=== PATIENT | female | born 1935 | race Caucasian/White ===

== ENCOUNTER 2017-06-12 11:29 | Emergency (ER) | payer MEDICARE, BC, OTHER ==
--- NOTE | 2017-06-12 12:35 | ER Document Report ---
ED Wound - General Chief Complaint: Laceration Stated Complaint: FOOT LACERATION Time Seen by Provider: 06/12/17 12:32 Information source: Patient Notes: Patient was making a salad and actually dropped a knife onto her right foot stabbing her right great toe. Tetanus is up-to-date. Patient states she does not have diabetes. - HPI Patient complains to provider of: Laceration Occurred: Just prior to arrival Onset/Duration: Sudden Quality of pain: Achy Severity: Mild Pain Level: 1 Context: Injury Skin Color: Normal Capillary refill: < 3 seconds Sensations intact: Yes Distal pulses present: Yes - Related Data Allergies/Adverse Reactions: Iodinated Contrast- Oral and IV Dye [IV Dye, Iodine Containing] Allergy (Severe , Verified 06/12/17 11:35) temporary paralysis of bilateral upper & lower extremities meloxicam [From Mobic] Allergy (Intermediate, Verified 09/12/13 15:23) uncontrollable "jerking" of corey upper & lower extremities Past Medical History - General Information source: Patient - Social History Smoking Status: Current Every Day Smoker Cigarette use (# per day): No Chew tobacco use (# tins/day): No Smoking Education Provided: No Frequency of alcohol use: None Drug Abuse: None Family History: Reviewed & Not Pertinent Patient has suicidal ideation: No Patient has homicidal ideation: No - Past Medical History Cardiac Medical History: Reports: Hx Atrial Fibrillation - post-op 06/24/11, states A fib converted without intervention, Hx Hypertension - meds x 25 years, Hx Heart Murmur - Dx'ed late s, denies MVP/SBE prophylaxis Denies: Hx Congestive Heart Failure, Hx Coronary Artery Disease, Hx Heart Attack, Hx Hypercholesterolemia, Hx Peripheral Vascular Disease, Hx Pulmonary Embolism Pulmonary Medical History: Reports: Hx Bronchitis - chronic, r/t 3 ppd cigarette smoking, Hx COPD Denies: Hx Asthma, Hx Pneumonia, Hx Respiratory Failure, Hx Sleep Apnea, Hx Tuberculosis Renal/ Medical History: Denies: Hx Ovarian Cysts, Hx Peritoneal Dialysis, Hx Pelvic Inflammatory Disease Malignancy Medical History: Denies: Hx Breast Cancer, Hx Cervical Cancer, Hx Leukemia, Hx Lung Cancer, Hx Ovarian Cancer GI Medical History: Denies: Hx Crohn's Disease, Hx Gastroesophageal Reflux Disease, Hx Hiatal Hernia, Hx Irritable Bowel, Hx Liver Failure, Hx Pancreatitis , Hx Ulcer Musculoskeltal Medical History: Reports Hx Arthritis, Denies Hx Fibromyalgia, Denies Hx Muscular Dystrophy Traumatic Medical History: Reports: Hx Fractures - RT tib/fib 1964, cast application Infectious Medical History: Denies: Hx HIV Past Surgical History: Reports: Hx Appendectomy - 1953, Hx Hysterectomy - GAIL BSO 1981, Hx Orthopedic Surgery - Bilateral total hip replacement. Denies: Hx Bowel Surgery, Hx Section, Hx Cholecystectomy, Hx Colostomy, Hx Coronary Artery Bypass Graft, Hx Gastric Bypass Surgery, Hx Herniorrhaphy, Hx Mastectomy, Hx Pacemaker, Hx Tonsillectomy, Hx Tubal Ligation - Immunizations Hx Diphtheria, Pertussis, Tetanus Vaccination: No Hx Pneumococcal Vaccination: 05/30/04 Physical Exam - Vital signs Vitals: Temp Pulse Resp BP Pulse Ox 97.4 F 128 H 20 114/86 H 92 06/12/17 11:35 06/12/17 11:35 06/12/17 11:35 06/12/17 11:35 06/12/17 11:35 Notes: Reviewed vital signs and nursing note as charted by RN. CONSTITUTIONAL: Alert and oriented and responds appropriately to questions. Well -appearing; well-nourished EXT: Patient has a puncture wound to the proximal aspect of the dorsal right great toe. Hemostatic at this time. Full range of motion of the big toe with good capillary refill with sensation intact to light touch Course - Re-evaluation Re-evalutation: 06/12/17 12:35 Given the history and physical examination we will order an x-ray to evaluate for possible open fracture. If no fracture is present we will clean and irrigate the toe appropriately and suture the wound. 06/12/17 13:28 X-ray as recorded. Suture has been placed. - Vital Signs Vital signs: Temp Pulse Resp BP Pulse Ox 97.4 F 128 H 20 114/86 H 92 06/12/17 11:35 06/12/17 11:35 06/12/17 11:35 06/12/17 11:35 06/12/17 11:35 Procedures - Laceration/Wound Repair Right Toe Wound length (cm): 1 Wound's Depth, Shape: Superficial, Linear Laceration pre-procedure: Sterile PPE donned, Shur-Clens applied Wound explored: Clean Wound Repaired With: Sutures Suture Size/Type: 4:0, Prolene Number of Sutures: 1 Layer Closure?: No Post-procedure wound care: Sterile dressing applied Post-procedure NV exam normal: Yes Complications: No Discharge - Discharge Clinical Impression: Laceration of right great toe Qualifiers: Encounter type: initial encounter Damage to nail status: without damage Foreign body presence: without foreign body Qualified Code(s): S91.111A - Laceration without foreign body of right great toe without damage to nail, initial encounter Condition: Good Disposition: HOME, SELF-CARE Additional Instructions: Come back immediately with any increased pain, redness, swelling, discharge, fever, or any other acute problems. Sutures to be removed in 7-[address] bacitracin to the wound twice daily with a clean dressing.
[2017-06-12] MEDS ORDERED: BACITRACIN ZINC OINTMENT 15 GM TP ONE (13:28)
--- NOTE | 2017-06-12 13:32 | RADIOLOGY REPORT (SQ) ---
EXAM DESCRIPTION: TOE RIGHT COMPLETED DATE/TIME: 06/12/2017 1:17 pm REASON FOR STUDY: 42, knife fell on right great toe COMPARISON: None. NUMBER OF VIEWS: Three views. TECHNIQUE: AP, lateral, and oblique images acquired of the right first toe. LIMITATIONS: None. FINDINGS: MINERALIZATION: Normal. BONES: No acute fracture or dislocation. No worrisome bone lesions. Chronic soft tissue calcificati on. JOINTS: No effusions. SOFT TISSUES: No soft tissue swelling. No foreign body. OTHER: No other significant finding. IMPRESSION: NEGATIVE STUDY OF THE RIGHT TOE. NO RADIOGRAPHIC EVIDENCE OF ACUTE INJURY. COMMENT: SITE OF TRAUMA/COMPLAINT MARKED/STAMP COMPLETED: Yes TECHNICAL DOCUMENTATION: JOB ID: [id number] [employer]- All Rights Reserved
[2017-06-12 13:55] VITALS: BP 111/61
== END 2017-06-12 13:54 | disposition home or self-care (01) ==
LOC: ER 11:29
PROC: 0HQMXZZ Repair Right Foot Skin, External Approach (ICD-10-PCS; principal; 2017-06-12)
DX: S91.111A Laceration without foreign body of right great toe without damage to nail, initial encounter (principal); W26.0XXA Contact with knife, initial encounter; Y92.009 Unspecified place in unspecified non-institutional (private) residence as the place of occurrence of the external cause; F17.200 Nicotine dependence, unspecified, uncomplicated; I48.91 Unspecified atrial fibrillation; I10 Essential (primary) hypertension; Z90.710 Acquired absence of both cervix and uterus; Z96.643 Presence of artificial hip joint, bilateral
CPT/HCPCS: 99283; 73660; 12001; J3490

== ENCOUNTER 2017-10-04 08:23 | Day surgery (SDC) | payer MEDICARE, BC, OTHER ==
[~2017-10-04 08:23] MED LIST: BUPIVACAINE HCL 0.75% INJ/PF (7.5 MG/1 ML) 10 ML SDV OD PRN; CHONDR SU A NA/HYALUR INTRAOC KIT (SURGICARE) ONE; EPINEPHRINE INJ/PF 1 MG/1 ML AMPULE ONE; KETOROLAC TROMETHAMINE 0.45% 4 DROP/0.4 ML DROPERETTE OD PRN; LIDOCAINE 1% INJ-PF (10 MG/ML) 30 ML SDV ONE; LIDOCAINE 4% INJ/PF (40 MG/ML) 5 ML AMPUL OD PRN; TETRACAINE HCL 0.5% OPH SOLN 2 ML OD PRN
[2017-10-04] MEDS: TETRACAINE HCL 0.5% OPH SOLN 0.6 ML DROPERETTE OD PRN ×2 (08:45→09:09)
[2017-10-04] MEDS: CYCLOPENTOLATE 0.2%/PHENYLEPHRINE 1% OPH SOLN 2 ML OD PRN ×3 (08:46→08:58)
[2017-10-04] MEDS: TROPICAMIDE 1% OPH SOLN 3 ML OD PRN ×3 (08:46→08:58)
[2017-10-04] MEDS: BESIFLOXACIN HCL 0.6% OPH SUSP 5 ML BOTTLE OD PRN ×4 (08:46→09:44)
[2017-10-04] MEDS ORDERED: MIDAZOLAM 2 MG/2 ML INJ ONE (08:56)
[2017-10-04] MEDS ORDERED: FENTANYL CITRATE INJ/PF 100 MCG/2 ML AMPUL ONE (08:57)
[2017-10-04] MEDS ORDERED: ALBUTEROL SULFATE 0.083% NEB 2.5 MG/3 ML AMPUL NEB ONE (09:59)
--- NOTE | 2017-10-04 09:59 | [facility] DISCHARGE SUMMARY E ---
[facility] Discharge Summary NAME: KASSIE TORO AGE: 82Y ADMITTED: 10/04/2017 DISCHARGED: 10/04/2017 FINAL DIAGNOSIS: Cataract, right eye. HOSPITAL COURSE: The patient is an 82-year-old lady who underwent uneventful cataract extraction with intraocular lens implant, right eye, on 10/04/2017. She will be discharged to home. She was instructed to resume preoperative medications; to take Tylenol as needed for discomfort; to keep her eye shielded; to use Besivance, Durezol, and Ilevro at 3 p.m. and 8 p.m.; and to follow up in my office in 1 day. DICTATING PHYSICIAN: ORLIN MAGALLANES M.D. [id number] PHY#: [id number] ID: [id number] JOB#: [id number] ACCT: [id number] cc:ORLIN MAGALLANES M.D. >
--- NOTE | 2017-10-04 09:59 | [facility] OPERATIVE REPORT E ---
[facility] Operative Report NAME: KASSIE TORO AGE: 82Y DATE OF SURGERY: 10/04/2017 ROOM: PREOPERATIVE DIAGNOSIS: Cataract, right eye. POSTOPERATIVE DIAGNOSIS: Cataract, right eye. PROCEDURE PERFORMED: Phacoemulsification with posterior chamber intraocular lens, right eye. SURGEON: ORLIN MAGALLANES M.D. ANESTHESIA: Topical with MAC. INDICATIONS FOR SURGERY: Difficulty reading words on TV and small print. Best corrected visual acuity 20/70. PROCEDURE: The patient was brought to the operating room and placed on the operative table. Following tetracaine drops, topical anesthesia was administered. This consisted of instrument wipe pledgets soaked in a solution of 4% Xylocaine mixed with 0.75% Marcaine in a 1:2 ratio. A 2 x 1 cm pledget was placed in the superior fornix. A 1 x 1 cm pledget was placed in the inferior fornix. The eye was patched shut for 5 minutes. The patch was removed. The eye was sterilely prepped and draped in the usual manner. Lid speculum was placed in the eye. The pledgets were removed and 4-0 black silk sutures were placed around the superior and the inferior rectus muscles to be used as traction. A conjunctival peritomy was made at the 10 o'clock position. Hemostasis was obtained with bipolar cautery. A posterior limbal groove was created using a crescent knife and dissected anteriorly towards the cornea. A sharp point blade was used to create a paracentesis site at the 2 o'clock position. A 2.4 mm keratome was used to enter the anterior chamber through the groove. Viscoelastic was injected into the anterior chamber. An anterior capsulotomy was performed using Utrata forceps in a capsulorrhexis fashion. Hydrodissection and hydrodelineation were performed. Phacoemulsification was performed in [id number] technique. A total of 1.6 minutes phaco time was used. Following this, the I/A unit was used to remove residual cortex. Viscoelastic was injected into the capsular bag. Intraocular lens model [id number], 24.0 diopters, serial number [id number], was placed in the capsular bag. The I/A unit was used to remove residual viscoelastic. The wound was seen to be watertight under high and low pressure, and no sutures were placed. The intraocular lens was well centered. The pressure was adjusted in the eye to normal pressure. The 4-0 black silk sutures and lid speculum were removed. The eye was shielded after Besivance drops were placed. The patient tolerated the procedure well and was sent to the recovery room in good condition. DICTATING PHYSICIAN: ORLIN MAGALLANES M.D. [id number] PHY#: [id number] ID: [id number] JOB#: [id number] ACCT: [id number] cc:ORLIN MAGALLANES M.D. >
== END 2017-10-04 10:35 | disposition home or self-care (01) ==
LOC: SC 08:23
PROVIDERS: ATTEND Ophthalmology
DX: H25.813 Combined forms of age-related cataract, bilateral (principal); H40.1231 Low-tension glaucoma, bilateral, mild stage; H34.8312 Tributary (branch) retinal vein occlusion, right eye, stable; H01.002 Unspecified blepharitis right lower eyelid; H01.005 Unspecified blepharitis left lower eyelid; I10 Essential (primary) hypertension; J44.9 Chronic obstructive pulmonary disease, unspecified; R01.1 Cardiac murmur, unspecified; M19.90 Unspecified osteoarthritis, unspecified site; F17.210 Nicotine dependence, cigarettes, uncomplicated; Z79.899 Other long term (current) drug therapy; Z86.73 Personal history of transient ischemic attack (TIA), and cerebral infarction without residual deficits; Z79.51 Long term (current) use of inhaled steroids
CPT/HCPCS: 66984; V2632; J2250; J3490; A9270 ×2; J0171; J3010; 142

== ENCOUNTER 2017-10-13 10:19 | Emergency (ER) | payer MEDICARE, BC, OTHER ==
--- NOTE | 2017-10-13 10:54 | ER Document Report ---
ED General - General Chief Complaint: Fall Stated Complaint: FALL HIP PAIN Time Seen by Provider: 10/13/17 10:35 Mode of Arrival: Medic Information source: Patient, Relative Notes: 82 yr old female presents with complaints of left hip pain. pt notes she was bending over, believes her hip dislocated and then she fell. pt denies any other injuries, states she did not strike her head. hx of hip replacements and revision TRAVEL OUTSIDE OF THE [place] IN LAST 30 DAYS: No - HPI Onset: Just prior to arrival Onset/Duration: Sudden Quality of pain: Achy Severity: Mild Pain Level: 1 Associated symptoms: Body/muscle aches Exacerbated by: Movement Relieved by: Denies Similar symptoms previously: Yes Recently seen / treated by doctor: Yes - Related Data Allergies/Adverse Reactions: Iodinated Contrast- Oral and IV Dye [IV Dye, Iodine Containing] Allergy (Severe , Verified 10/04/17 09:01) temporary paralysis of bilateral upper & lower extremities lidocaine [From Aspercreme (lidocaine)] Allergy (Intermediate, Verified 09:01) Generalized rash meloxicam [From Mobic] Allergy (Intermediate, Verified 10/04/17 09:01) uncontrollable "jerking" of corey upper & lower extremities Past Medical History - General Information source: Patient - Social History Smoking Status: Current Every Day Smoker Cigarette use (# per day): Yes Chew tobacco use (# tins/day): No Smoking Education Provided: No Frequency of alcohol use: None Drug Abuse: None Family History: Reviewed & Not Pertinent Patient has suicidal ideation: No Patient has homicidal ideation: No - Past Medical History Cardiac Medical History: Reports: Hx Atrial Fibrillation - post-op 06/24/11, states A fib converted without intervention, Hx Hypertension - MEDS, Hx Heart Murmur - Dx'ed late , denies MVP/SBE prophylaxis Denies: Hx Congestive Heart Failure, Hx Coronary Artery Disease, Hx Heart Attack, Hx Hypercholesterolemia, Hx Peripheral Vascular Disease, Hx Pulmonary Embolism Pulmonary Medical History: Reports: Hx Bronchitis - chronic, r/t 3 ppd cigarette smoking, Hx COPD Denies: Hx Asthma, Hx Pneumonia, Hx Respiratory Failure, Hx Sleep Apnea, Hx Tuberculosis Neurological Medical History: Denies: Hx Cerebrovascular Accident, Hx Seizures Renal/ Medical History: Denies: Hx Ovarian Cysts, Hx Peritoneal Dialysis, Hx Pelvic Inflammatory Disease Malignancy Medical History: Denies: Hx Breast Cancer, Hx Cervical Cancer, Hx Leukemia, Hx Lung Cancer, Hx Ovarian Cancer GI Medical History: Denies: Hx Crohn's Disease, Hx Gastroesophageal Reflux Disease, Hx Hepatitis, Hx Hiatal Hernia, Hx Irritable Bowel, Hx Liver Failure, Hx Pancreatitis, Hx Ulcer Musculoskeltal Medical History: Reports Hx Arthritis, Denies Hx Fibromyalgia, Denies Hx Muscular Dystrophy Traumatic Medical History: Reports: Hx Fractures - RT tib/fib 1964, cast application Infectious Medical History: Denies: Hx Hepatitis, Hx HIV Past Surgical History: Reports: Hx Appendectomy - 1953, Hx Hysterectomy, Hx Orthopedic Surgery - Bilateral total hip replacement. Denies: Hx Bowel Surgery , Hx Section, Hx Cholecystectomy, Hx Colostomy, Hx Coronary Artery Bypass Graft, Hx Gastric Bypass Surgery, Hx Herniorrhaphy, Hx Mastectomy, Hx Open Heart Surgery, Hx Pacemaker, Hx Tonsillectomy, Hx Tubal Ligation - Immunizations Hx Diphtheria, Pertussis, Tetanus Vaccination: No Hx Pneumococcal Vaccination: 05/30/04 Review of Systems - Review of Systems Notes: REVIEW OF SYSTEMS: CONSTITUTIONAL : Denies fever, chills, or sweats. Denies recent illness. EENT: Denies eye, ear, throat, or mouth pain or symptoms. Denies nasal or sinus congestion or discharge. Denies throat, tongue, or mouth swelling or difficulty swallowing. CARDIOVASCULAR: Denies chest pain. Denies palpitations or racing or irregular heart beat. Denies ankle edema. RESPIRATORY: Denies cough, cold, or chest congestion. Denies shortness of breath, difficulty breathing, or wheezing. GASTROINTESTINAL: Denies abdominal pain or distention. Denies nausea, vomiting , or diarrhea. Denies blood in vomitus, stools, or per rectum. Denies black, tarry stools. Denies constipation. GENITOURINARY: Denies difficulty urinating, painful urination, burning, frequency, blood in urine, or discharge. FEMALE GENITOURINARY: Denies vaginal bleeding, heavy or abnormal periods, irregular periods. Denies vaginal discharge or odor. MUSCULOSKELETAL: Admits to left hip pain SKIN: Denies rash, lesions or sores. HEMATOLOGIC : Denies easy bruising or bleeding. LYMPHATIC: Denies swollen, enlarged glands. NEUROLOGICAL: Denies confusion or altered mental status. Denies passing out or loss of consciousness. Denies dizziness or lightheadedness. Denies headache. Denies weakness or paralysis or loss of use of either side. Denies problems with gait or speech. Denies sensory loss, numbness, or tingling. Denies seizures. PSYCHIATRIC: Denies anxiety or stress. Denies depression, suicidal ideation, or homicidal ideation. ALL OTHER SYSTEMS REVIEWED AND NEGATIVE. PHYSICAL EXAMINATION: GENERAL: Well-appearing, well-nourished and in no acute distress. HEAD: Atraumatic, normocephalic. EYES: Pupils equal round and reactive to light, extraocular movements intact, conjunctiva are normal. ENT: Nares patent, oropharynx clear without exudates. Moist mucous membranes. NECK: Normal range of motion, supple without lymphadenopathy LUNGS: Breath sounds clear to auscultation bilaterally and equal. No wheezes rales or rhonchi. HEART: Regular rate and rhythm without murmurs ABDOMEN: Soft, nontender, nondistended abdomen. No guarding, no rebound. No masses appreciated. Female : deferred Musculoskeletal: Limited range of motion of the left lower extremity it is inverted and shortened NEUROLOGICAL: Cranial nerves grossly intact. Normal speech, normal gait. Normal sensory, motor exams PSYCH: Normal mood, normal affect. SKIN: Warm, Dry, normal turgor, no rashes or lesions noted. Dictation was performed using [employer] voice recognition software Physical Exam - Vital signs Vitals: Temp Pulse Resp BP Pulse Ox 97.6 F 90 16 110/69 96 10/13/17 10:23 10/13/17 10:23 10/13/17 10:23 10/13/17 10:23 10/13/17 10:23 Course - Re-evaluation Re-evalutation: 10/13/17 10:49 pt refused pain control, she is in xray at the moment 10/13/17 11:17 Dislocated hip noted, Dr Szymanski paged 10/13/17 12:43 Richy vanegas paged 10/13/17 14:21 Richy vanegas has no hip surgeon available today. 2 surgeons were called 10/13/17 14:27 [facility] paged 10/13/17 15:03 Dr Krishnan accepts patient to [facility] - Vital Signs Vital signs: Temp Pulse Resp BP Pulse Ox 97.6 F 73 17 117/75 93 10/13/17 10:23 10/13/17 12:35 10/13/17 14:40 10/13/17 14:40 10/13/17 14:40 - Laboratory Result Diagrams: 10/13/17 13:00 10/13/17 13:00 Laboratory results interpreted by me: 10/13/17 10/13/17 13:00 13:00 WBC 10.6 H RDW 15.3 H Seg Neutrophils % 86.0 H Lymphocytes % 8.2 L Absolute Neutrophils 9.1 H BUN 21 H Creatinine 0.50 L Total Protein 5.9 L - Diagnostic Test Radiology reviewed: Image reviewed - posterior left hip discloation noted on 2 view hip left, Reports reviewed - EKG Interpretation by Me EKG shows normal: Sinus rhythm, [place], Intervals, QRS Complexes Procedures - Conscious Sedation Conscious sedation Time started: 11:50 Time completed: 12:05 Consent obtained: Yes Indication: hip dislocation Prior complications: General anesthesia, Procedural sedation Normal healthy pt.: P1. - ASA Classification Airway Evaluation: Normal anatomy Mallampati Classification: Class 3 Used during procedure: Suction available, IV access obtained, Pulse ox on pt., environmental aide on pt. Medications administered: Diprivan Reversal agents: None I personally performed/intraservice time: Sedation, Procedure, 30 min or less Complications: No - Joint Reduction/Fracture Care Left Hip Time completed: 12:05 Consent obtained: Yes Conscious sedation: Yes Pre-procedure NV exam: Yes Fracture: Other Post-procedure NV exam: Yes Post-reduction x-ray: Joint not reduced Reduction attempts: 7 Complications: No Discharge - Discharge Clinical Impression: Hip dislocation, left Qualifiers: Encounter type: initial encounter Qualified Code(s): S73.005A - Unspecified dislocation of left hip, initial encounter Condition: Stable Disposition: [facility] Referrals: GEORGES HAN MD [Primary Care Provider] - Follow up as needed
--- NOTE | 2017-10-13 11:21 | RADIOLOGY REPORT (SQ) ---
EXAM DESCRIPTION: HIP LEFT AP/LATERAL COMPLETED DATE/TIME: 10/13/2017 11:10 am REASON FOR STUDY: fall COMPARISON: None. NUMBER OF VIEWS: Two views. TECHNIQUE: AP pelvis and additional frog-leg view of the left hip. LIMITATIONS: None. FINDINGS: MINERALIZATION: Normal. LEFT HIP: Left hip arthroplasty with posterior dislocation. RIGHT HIP: Right hip arthroplasty in good position. PUBIS AND ISCHIUM: No fracture. PELVIS: No fracture. SACRUM: No fracture or dislocation. No worrisome bone lesions. LOWER LUMBAR SPINE: Extensive degenerative disc disease and spondylosis. SOFT TISSUES: Left iliac artery aneurysm. OTHER: No other significant finding. IMPRESSION: 1. Dislocation of the left hip prosthesis. 2. 4 cm left common iliac aneurysm. 3. Lumbar degenerative changes. TECHNICAL DOCUMENTATION: JOB ID: [id number]- All Rights Reserved Reading location - IP/workstation name: [email or web address]
[2017-10-13] MEDS ORDERED: PROPOFOL INJ 200 MG/20 ML VIAL IV ONE (11:39)
--- NOTE | 2017-10-13 12:54 | RADIOLOGY REPORT (SQ) ---
EXAM DESCRIPTION: PELVIS AP COMPLETED DATE/TIME: 10/13/2017 12:27 pm REASON FOR STUDY: dislocation reduction attempt COMPARISON: AP pelvis films 10/13/2017, 09/24/2013 NUMBER OF VIEWS: One view TECHNIQUE: AP Pelvis LIMITATIONS: None. FINDINGS: MINERALIZATION: [place] bones are osteoporotic HIPS: Persistent left hip dislocation, the femoral head prosthesis is posterior to the acetabular cup . This is unchanged from films 10/13/2017 1109 hours Right hip replacement in good alignment. PELVIS AND SACRUM: Grossly intact PUBIS AND ISCHIUM: Grossly intact LOWER LUMBAR SPINE: Advanced lumbar spine degenerative changes. SOFT TISSUES: Peripherally calcified left proximal common iliac artery aneurysm 4 cm in diameter. Ec tatic right proximal common iliac artery 3 cm in diameter. OTHER: No other significant finding. 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 Consider follow-up abdominal aorta ultrasound. Results called to Dr Dunlap TECHNICAL DOCUMENTATION: JOB ID: [id number] [employer]- All Rights Reserved Reading location - IP/workstation name: [email or web address]
--- NOTE | 2017-10-13 13:10 | RADIOLOGY REPORT (SQ) ---
EXAM DESCRIPTION: CHEST SINGLE VIEW COMPLETED DATE/TIME: 10/13/2017 12:57 pm REASON FOR STUDY: preop COMPARISON: August 2013 EXAM PARAMETERS: NUMBER OF VIEWS: One view. TECHNIQUE: Single frontal radiographic view of the chest acquired. RADIATION DOSE: NA LIMITATIONS: Patient is rotated on the current study P FINDINGS: LUNGS AND PLEURA: No opacities, masses or pneumothorax. No pleural effusion. MEDIASTINUM AND HILAR STRUCTURES: No masses. Contour normal. HEART AND VASCULAR STRUCTURES: Allowing for the rotation the configuration of the heart and mediastin al structures is unchanged. Tortuous calcified thoracic aorta is again identified. BONES: No acute findings. HARDWARE: None in the chest. OTHER: No other significant finding. IMPRESSION: No significant interval change. No acute findings. Other findings as noted above. TECHNICAL DOCUMENTATION: JOB ID: [id number] [email or web address]- All Rights Reserved Reading location - IP/workstation name: [email or web address]
[2017-10-13 13:13] LABS: ABSOLUTE LYMPHOCYTES (AUTO) 0.9 10^3/uL (0.5-4.7); ABSOLUTE MONOCYTES (AUTO) 0.6 10^3/uL (0.1-1.4); ABSOLUTE NEUT (AUTO) 9.1 10^3/uL (1.7-8.2); BASOPHILS % (AUTO) 0.2 % (0-2); EOSINOPHILS % (AUTO) 0.1 % (0-6); HEMATOCRIT 41.5 % (36.0-47.0); HEMOGLOBIN 13.7 g/dL (12.0-15.5); LYMPHOCYTES % (AUTO) 8.2 % (13-45); MEAN CORPUSCULAR HEMOGLOBIN 29.7 pg (27.0-33.4); MEAN CORPUSCULAR HGB CONC 33.1 g/dL (32.0-36.0); MEAN CORPUSCULAR VOLUME 90 fl (80-97); MONOCYTES % (AUTO) 5.5 % (3-13); PLATELET COUNT 205 10^3/uL (150-450); RED BLOOD COUNT 4.62 10^6/uL (3.72-5.28); RED CELL DISTRIBUTION WIDTH 15.3 % (11.5-14.0); TOTAL CELLS COUNTED % (AUTO) 100 %; WHITE BLOOD COUNT 10.6 10^3/uL (4.0-10.5)
[2017-10-13 13:34] LABS: ALANINE AMINOTRANSFERASE 25 U/L (9-52); ALBUMIN 3.6 g/dL (3.5-5.0); ALKALINE PHOSPHATASE 60 U/L (38-126); ANION GAP 5 (5-19); ASPARTATE AMINO TRANSFERASE 19 U/L (14-36); BILIRUBIN,DIRECT 0.2 mg/dL (0.0-0.4); BILIRUBIN,TOTAL 0.2 mg/dL (0.2-1.3); BLOOD UREA NITROGEN 21 mg/dL (7-20); CALCIUM 9.5 mg/dL (8.4-10.2); CARBON DIOXIDE 30 mmol/L (22-30); CHLORIDE 104 mmol/L (98-107); GLUCOSE 91 mg/dL (75-110); POTASSIUM 3.9 mmol/L (3.6-5.0); TOTAL PROTEIN 5.9 g/dL (6.3-8.2)
--- NOTE | 2017-10-13 13:49 | RADIOLOGY REPORT (SQ) ---
EXAM DESCRIPTION: U/S ABD AORTIC SCREENING COMPLETED DATE/TIME: 10/13/2017 1:38 pm REASON FOR STUDY: aneurysm screening COMPARISON: AP pelvis film 10/13/2017 TECHNIQUE: Static and dynamic grayscale images acquired of the aorta and stored on PACs. Selected co merlyn Doppler and spectral images recorded. LIMITATIONS: None. FINDINGS: AORTIC CALIBER MAXIMAL PROXIMAL: 2.8 cm. MID: 2.4 cm. DISTAL: 2.9 cm. ILIAC DIAMETER RIGHT: Not visualized due to bowel gas LEFT: Not visualized due to bowel gas OTHER: No other significant finding. IMPRESSION: NO ABDOMINAL AORTIC ANEURYSM. Proximal common iliac arteries not well seen due to bowel gas. COMMENT: Aorta screening examinations categories: Negative - less than 3 cm. TECHNICAL DOCUMENTATION: JOB ID: [id number] [employer]- All Rights Reserved Reading location - IP/workstation name: [email or web address]
[2017-10-13] MEDS ORDERED: HYDROMORPHONE HCL INJ/PF 2 MG/ML AMPULE IV ONE (16:08)
[2017-10-13 18:07] VITALS: BP 122/75
== END 2017-10-13 18:00 | disposition short-term general hospital (02) ==
LOC: ER 10:19
DX: M25.552 Pain in left hip (principal); T84.021A Dislocation of internal left hip prosthesis, initial encounter; Y79.2 Prosthetic and other implants, materials and accessory orthopedic devices associated with adverse incidents; Y92.002 Bathroom of unspecified non-institutional (private) residence as the place of occurrence of the external cause; I71.4 Abdominal aortic aneurysm, without rupture; F17.210 Nicotine dependence, cigarettes, uncomplicated; I10 Essential (primary) hypertension; J44.9 Chronic obstructive pulmonary disease, unspecified; Z91.041 Radiographic dye allergy status; Z88.4 Allergy status to anesthetic agent; Z88.8 Allergy status to other drugs, medicaments and biological substances
CPT/HCPCS: 99285; 99152; 51702; 96374; 36415; 85025; 80053; 71045; 73502; 72170; 76706; 27265; J1170; J2704

== ENCOUNTER 2017-10-27 07:47 | Day surgery (SDC) | payer MEDICARE, BC, OTHER ==
[~2017-10-27 07:47] MED LIST changes: -BUPIVACAINE HCL 0.75% INJ/PF (7.5 MG/1 ML) 10 ML SDV OD PRN; -KETOROLAC TROMETHAMINE 0.45% 4 DROP/0.4 ML DROPERETTE OD PRN; +KETOROLAC TROMETHAMINE 0.45% 4 DROP/0.4 ML DROPERETTE OS PRN; -LIDOCAINE 1% INJ-PF (10 MG/ML) 30 ML SDV ONE; -LIDOCAINE 4% INJ/PF (40 MG/ML) 5 ML AMPUL OD PRN; -TETRACAINE HCL 0.5% OPH SOLN 2 ML OD PRN
[2017-10-27] MEDS: TROPICAMIDE 1% OPH SOLN 3 ML OS PRN ×3 (08:08→08:39)
[2017-10-27] MEDS: CYCLOPENTOLATE 0.2%/PHENYLEPHRINE 1% OPH SOLN 2 ML OS PRN ×3 (08:08→08:39)
[2017-10-27] MEDS: BESIFLOXACIN HCL 0.6% OPH SUSP 5 ML BOTTLE OS PRN ×2 (08:09→08:27)
[2017-10-27] MEDS: TETRACAINE HCL 0.5% OPH SOLN 0.6 ML DROPERETTE OS PRN ×2 (08:10→08:45)
[2017-10-27] MEDS ORDERED: FENTANYL CITRATE INJ/PF 100 MCG/2 ML AMPUL ONE (08:43)
[2017-10-27] MEDS ORDERED: ONDANSETRON HCL INJ/PF 4 MG/2 ML SDV ONE (08:43)
[2017-10-27] MEDS ORDERED: MIDAZOLAM 2 MG/2 ML INJ ONE (08:43)
[2017-10-27] MEDS ORDERED: TETRACAINE HCL 0.5% OPH SOLN 2 ML ONE (09:00)
--- NOTE | 2017-11-15 17:20 | [facility] OPERATIVE REPORT E ---
[facility] Operative Report NAME: KASSIE TORO AGE: 82Y DATE OF SURGERY: 10/27/2017 ROOM: PREOPERATIVE DIAGNOSIS: CATARACT, LEFT EYE. POSTOPERATIVE DIAGNOSIS: CATARACT, LEFT EYE. OPERATION: Cataract extraction with intraocular lens, right eye. SURGEON: ORLIN MAGALLANES M.D. PROCEDURE: Patient was taken to the operating room, and on placing on the stretcher, she reported chest pain. The operation was canceled. There was no incision or removal of cataract on that date. I did not perform any part of the operation, as it was canceled after she entered the operating room. She was transported to the recovery room and 911 was called, and she was transported to [facility]. Again, the case was canceled without any surgery being performed. DICTATING PHYSICIAN: ORLIN MAGALLANES M.D. [id number] PHY#: [id number] ID: [id number] JOB#: [id number] ACCT: [id number] cc:ORLIN MAGALLANES M.D. >
== END 2017-10-27 09:29 | disposition home or self-care (01) ==
LOC: SC 07:47
PROVIDERS: ATTEND Ophthalmology
DX: H25.812 Combined forms of age-related cataract, left eye (principal); Z96.1 Presence of intraocular lens; H40.1231 Low-tension glaucoma, bilateral, mild stage; J44.9 Chronic obstructive pulmonary disease, unspecified; I10 Essential (primary) hypertension; F17.210 Nicotine dependence, cigarettes, uncomplicated; Z79.51 Long term (current) use of inhaled steroids; Z79.899 Other long term (current) drug therapy; Z88.8 Allergy status to other drugs, medicaments and biological substances; Z91.040 Latex allergy status
CPT/HCPCS: 66984; J2250; J3490; A9270; J0171; J2405; 142; J3010

== ENCOUNTER 2017-10-27 09:39 | Emergency (ER) | payer MEDICARE, BC, OTHER ==
[2017-10-27] MEDS ORDERED: ASPIRIN 81 MG TABLET, CHEWABLE PO ONE (09:45)
--- NOTE | 2017-10-27 10:08 | ER Document Report ---
ED Cardiac - General Stated Complaint: CHEST PAIN Time Seen by Provider: 10/27/17 09:53 Notes: 82-year-old female sent [facility] from [facility] for evaluation. Was going to have cataract surgery today when she developed atrial fibrillation while in the preop area. Denied any symptoms at that time. Did not feel anything. Did not want to come but decided to come anyway. Patient has been n.p.o. Patient does admit to being under a little bit of stress over the last several weeks with loss of loved one. Patient followed by Dr. Lan melendez. TRAVEL OUTSIDE OF THE [place] IN LAST 30 DAYS: No - HPI Patient complains to provider of: Palpitations - Related Data Allergies/Adverse Reactions: Iodinated Contrast- Oral and IV Dye [IV Dye, Iodine Containing] Allergy (Severe , Verified 10/04/17 09:01) temporary paralysis of bilateral upper & lower extremities lidocaine [From Aspercreme (lidocaine)] Allergy (Intermediate, Verified 09:01) Generalized rash meloxicam [From Mobic] Allergy (Intermediate, Verified 10/20/17 13:37) uncontrollable "jerking" of corey upper & lower extremities Past Medical History - General Information source: Patient, [facility] Records - Social History Smoking Status: Former Smoker Frequency of alcohol use: None Drug Abuse: None Lives with: Alone Family History: Reviewed & Not Pertinent - Past Medical History Cardiac Medical History: Reports: Hx Atrial Fibrillation - post-op 06/24/11, states A fib converted without intervention, Hx Hypertension - MEDS, Hx Heart Murmur - Dx'ed late , denies MVP/SBE prophylaxis Denies: Hx Congestive Heart Failure, Hx Coronary Artery Disease, Hx Heart Attack, Hx Hypercholesterolemia, Hx Peripheral Vascular Disease, Hx Pulmonary Embolism Pulmonary Medical History: Reports: Hx Bronchitis - chronic, r/t 3 ppd cigarette smoking, Hx COPD Denies: Hx Asthma, Hx Pneumonia, Hx Respiratory Failure, Hx Sleep Apnea, Hx Tuberculosis Neurological Medical History: Denies: Hx Cerebrovascular Accident, Hx Seizures Renal/ Medical History: Denies: Hx Ovarian Cysts, Hx Peritoneal Dialysis, Hx Pelvic Inflammatory Disease Malignancy Medical History: Denies: Hx Breast Cancer, Hx Cervical Cancer, Hx Leukemia, Hx Lung Cancer, Hx Ovarian Cancer GI Medical History: Denies: Hx Crohn's Disease, Hx Gastroesophageal Reflux Disease, Hx Hepatitis, Hx Hiatal Hernia, Hx Irritable Bowel, Hx Liver Failure, Hx Pancreatitis, Hx Ulcer Musculoskeltal Medical History: Reports Hx Arthritis, Denies Hx Fibromyalgia, Denies Hx Muscular Dystrophy Traumatic Medical History: Reports: Hx Fractures - RT tib/fib 1964, cast application Infectious Medical History: Denies: Hx Hepatitis, Hx HIV Past Surgical History: Reports: Hx Appendectomy - 1953, Hx Hysterectomy, Hx Orthopedic Surgery - Bilateral total hip replacement. Denies: Hx Bowel Surgery , Hx Section, Hx Cholecystectomy, Hx Colostomy, Hx Coronary Artery Bypass Graft, Hx Gastric Bypass Surgery, Hx Herniorrhaphy, Hx Mastectomy, Hx Open Heart Surgery, Hx Pacemaker, Hx Tonsillectomy, Hx Tubal Ligation - Immunizations Hx Diphtheria, Pertussis, Tetanus Vaccination: No Hx Pneumococcal Vaccination: 05/30/04 Review of Systems - Review of Systems Constitutional: No symptoms reported EENT: No symptoms reported Cardiovascular: Palpitations, Heart racing. denies: Orthopnea, Dyspnea, Syncope Respiratory: No symptoms reported Gastrointestinal: No symptoms reported Genitourinary: No symptoms reported Female Genitourinary: No symptoms reported Musculoskeletal: No symptoms reported Skin: No symptoms reported Hematologic/Lymphatic: No symptoms reported Neurological/Psychological: No symptoms reported Physical Exam - Vital signs Vitals: Resp Pulse Ox 19 96 10/27/17 09:49 10/27/17 09:49 Interpretation: Tachycardic - General General appearance: Appears well, Alert - HEENT Head: Normocephalic, Atraumatic Eyes: Normal Pupils: PERRL - Respiratory Respiratory status: No respiratory distress Chest status: Nontender Breath sounds: Normal Chest palpation: Normal - Cardiovascular Rhythm: Irregularly irregular, Tachycardia Heart sounds: Normal auscultation Murmur: No - Abdominal Inspection: Normal Distension: No distension Bowel sounds: Normal Tenderness: Nontender Organomegaly: No organomegaly - Back Back: Normal, Nontender - Extremities General upper extremity: Normal inspection, Nontender, Normal color, Normal ROM , Normal temperature General lower extremity: Normal inspection, Nontender, Normal color, Normal ROM , Normal temperature, Normal weight bearing. No: Alexi's sign - Neurological Neuro grossly intact: Yes Cognition: Normal Orientation: AAOx4 Gordon Coma Scale Eye Opening: Spontaneous Gordon Coma Scale Verbal: Oriented Gordon Coma Scale Motor: Obeys Commands Gordon Coma Scale Total: 15 Speech: Normal Motor strength normal: LUE, RUE, LLE, RLE Sensory: Normal - Psychological Associated symptoms: Normal affect, Normal mood - Skin Skin Temperature: Warm Skin Moisture: Dry Skin Color: Normal Course - Re-evaluation Re-evalutation: 10/27/17 12:10 This is a well-appearing 82-year-old female in no acute distress with atrial fibrillation with rapid ventricular response. Diltiazem p.o. and IV given. Patient was converted to normal sinus rhythm. Denies any chest pain. Labs are normal. Patient does not want to stay. Wants to go home. I will start her on a beta-chelsea as well as aspirin. - Vital Signs Vital signs: Temp Pulse Resp BP Pulse Ox 97.8 F 18 105/65 96 10/27/17 10:46 10/27/17 12:01 10/27/17 12:00 10/27/17 12:01 - Laboratory Result Diagrams: 10/27/17 10:00 10/27/17 10:00 Laboratory results interpreted by me: 10/27/17 10/27/17 10:00 10:00 RDW 15.3 H Seg Neutrophils % 79.7 H AST 13 L Total Protein 6.0 L Discharge - Discharge Clinical Impression: Atrial fibrillation Qualifiers: Atrial fibrillation type: paroxysmal Qualified Code(s): I48.0 - Paroxysmal atrial fibrillation Condition: Good Disposition: HOME, SELF-CARE Instructions: Aspirin (Cardiac) (OM), Atrial Fibrillation (OM), Beta Blockers (OM) Prescriptions: Aspirin [Aspirin 325 mg Tablet] 325 mg PO DAILY PRN 30 Days #30 tab PRN Reason: Metoprolol Tartrate [Lopressor 25 mg Tablet] 25 mg PO DAILY 30 Days #60 tab Referrals: GALILEA JOHNSON MD [ACTIVE STAFF] - Follow up in 3-5 days GEORGES HAN MD [Primary Care Provider] - Follow up in 3-5 days
[2017-10-27] MEDS ORDERED: DILTIAZEM HCL 90 MG TABLET PO ONE (10:09)
[2017-10-27] MEDS ORDERED: DILTIAZEM HCL INJ 25 MG/5 ML VIAL IV ONE (10:09)
[2017-10-27 10:23] LABS: ABSOLUTE BASOPHILS # (AUTO) 0.1 10^3/uL (0.0-0.2); ABSOLUTE EOSINOPHILS # (AUTO) 0.1 10^3/uL (0.0-0.6); ABSOLUTE LYMPHOCYTES (AUTO) 1.2 10^3/uL (0.5-4.7); ABSOLUTE MONOCYTES (AUTO) 0.4 10^3/uL (0.1-1.4); ABSOLUTE NEUT (AUTO) 7.3 10^3/uL (1.7-8.2); BASOPHILS % (AUTO) 0.8 % (0-2); EOSINOPHILS % (AUTO) 1.4 % (0-6); HEMOGLOBIN 14.5 g/dL (12.0-15.5); LYMPHOCYTES % (AUTO) 13.2 % (13-45); MEAN CORPUSCULAR HGB CONC 33.1 g/dL (32.0-36.0); MEAN CORPUSCULAR VOLUME 91 fl (80-97); MONOCYTES % (AUTO) 4.9 % (3-13); PLATELET COUNT 248 10^3/uL (150-450); RED BLOOD COUNT 4.84 10^6/uL (3.72-5.28); RED CELL DISTRIBUTION WIDTH 15.3 % (11.5-14.0); SEGMENTED NEUTROPHILS % (AUTO) 79.7 % (42-78); TOTAL CELLS COUNTED % (AUTO) 100 %; WHITE BLOOD COUNT 9.1 10^3/uL (4.0-10.5)
--- NOTE | 2017-10-27 10:29 | RADIOLOGY REPORT (SQ) ---
EXAM DESCRIPTION: CHEST SINGLE VIEW COMPLETED DATE/TIME: 10/27/2017 10:20 am REASON FOR STUDY: cp COMPARISON: Chest films 10/13/2017, 08/31/2013 EXAM PARAMETERS: NUMBER OF VIEWS: One view. TECHNIQUE: Single frontal radiographic view of the chest acquired. RADIATION DOSE: NA LIMITATIONS: Portable film EKG leads, rotated to the FOWLER position FINDINGS: LUNGS AND PLEURA: Chronic increased interstitial markings at the bases. No fluffy alveola r infiltrates worrisome for edema or pneumonia. No pleural effusion. No pneumothorax. MEDIASTINUM AND HILAR STRUCTURES: No masses. Contour normal. HEART AND VASCULAR STRUCTURES: Mild cardiomegaly BONES: Advanced arthritis both shoulders HARDWARE: None in the chest. OTHER: No other significant finding. IMPRESSION: No acute findings TECHNICAL DOCUMENTATION: JOB ID: [id number] [employer]- All Rights Reserved Reading location - IP/workstation name: [email or web address]
[2017-10-27 10:46] LABS: ALANINE AMINOTRANSFERASE 23 U/L (9-52); ALBUMIN 3.6 g/dL (3.5-5.0); ALKALINE PHOSPHATASE 55 U/L (38-126); ANION GAP 10 (5-19); ASPARTATE AMINO TRANSFERASE 13 U/L (14-36); BILIRUBIN,DIRECT 0.3 mg/dL (0.0-0.4); BILIRUBIN,TOTAL 0.3 mg/dL (0.2-1.3); BLOOD UREA NITROGEN 16 mg/dL (7-20); CALCIUM 9.6 mg/dL (8.4-10.2); CARBON DIOXIDE 24 mmol/L (22-30); CHLORIDE 106 mmol/L (98-107); CREATINE KINASE 30 U/L (30-135); GLUCOSE 101 mg/dL (75-110); POTASSIUM 4.3 mmol/L (3.6-5.0); SODIUM 140.2 mmol/L (137-145)
[2017-10-27 11:02] LABS: TROPONIN I < 0.012 ng/mL
[2017-10-27 12:05] VITALS: BP 105/65
--- NOTE | 2017-10-27 18:04 | EKG REPORT ---
SEVERITY:- ABNORMAL ECG - ATRIAL FIBRILLATION, V-RATE 81-169 LEFT AXIS DEVIATION LEFT VENTRICULAR HYPERTROPHY : Confirmed by: Suzanna Chauhan 27-Oct-2017 18:04:10
== END 2017-10-27 12:24 | disposition home or self-care (01) ==
LOC: ER 09:39
DX: I48.0 Paroxysmal atrial fibrillation (principal); R00.0 Tachycardia, unspecified; I10 Essential (primary) hypertension; J44.9 Chronic obstructive pulmonary disease, unspecified; Z87.891 Personal history of nicotine dependence; Z91.041 Radiographic dye allergy status; Z88.4 Allergy status to anesthetic agent; Z88.8 Allergy status to other drugs, medicaments and biological substances
CPT/HCPCS: 93005; 99291; 96374; 36415; 82553; 82550; 85025; 80053; 84484; 71045; 93010; A9270 ×2; J3490

== ENCOUNTER → 2017-12-19 | Outpatient (CLI) | payer MEDICARE, BC, OTHER ==
--- NOTE | 2017-12-19 09:34 | RADIOLOGY REPORT (SQ) ---
EXAM DESCRIPTION: MRI LT UPPER JOINT WITHOUT COMPLETED DATE/TIME: 12/19/2017 8:54 am REASON FOR STUDY: LEFT SHOULDER PAIN (M25.512) M75.102 UNSP ROTATR-CUFF TEAR/RUPTR OF LEFT SHOULDER , NOT TR COMPARISON: None. TECHNIQUE: Left shoulder images acquired and stored on PACS. Multiplanar imaging to include fat sens itive sequences such as T1, water sensitive sequences such as FST2/STIR, cartilage sensitive sequence s such as FSPD/gradient-echo sequences. LIMITATIONS: Positioning. Motion. FINDINGS: BONE MARROW AND CORTEX: No worrisome bone lesions or marrow replacement. No occult fractur es. JOINT OR BURSAL EFFUSION: Small glenohumeral joint effusion. Small amount of fluid in the subacromia l and subcoracoid bursae. GLENO-HUMERAL ARTICULATION: Advanced degenerative change with multiple loose bodies and remodeling of the glenoid. ACROMION AND AC JOINT: Type 1 acromion. Marked AC joint arthropathy. Loose bodies. ROTATOR CUFF AND INTERVAL: Diffuse tendinosis. Partial thickness articular surface tears of the supr aspinatus and infraspinatus. Mild fibrosis in the rotator interval. LABRUM AND BICEPS LABRAL COMPLEX: Degenerative change. No obvious acute tear. Distal biceps intac t. REMAINDER OF LABRUM AND IGHL : Advanced degenerative change. PERIARTICULAR AND ADJACENT SOFT TISSUES: No masses or abnormal nodes. OTHER: No other significant finding. IMPRESSION: 1. Advanced glenohumeral joint arthropathy with multiple loose bodies and remodeling of the glenoid. 2. Partial-thickness articular surface tears of the supraspinatus and infraspinatus. 3. Subacromial and subcoracoid bursal fluid. 4. AC joint arthropathy. TECHNICAL DOCUMENTATION: JOB ID: [id number] [employer]- All Rights Reserved Reading location - IP/workstation name: [email or web address]
== END ==
LOC: RAD 07:59
PROVIDERS: ATTEND Physician Assistant
DX: M25.512 Pain in left shoulder (principal)

== ENCOUNTER 2018-06-09 07:31 | Inpatient (IN) | payer MEDICARE, BC, OTHER ==
--- NOTE | 2018-06-09 07:47 | ER Document Report ---
ED General - General Chief Complaint: Fall Injury Stated Complaint: FALL Time Seen by Provider: 06/09/18 07:41 Mode of Arrival: Medic Information source: Patient Notes: Patient presents to the emergency department post fall from last night. Patient reports she was brushing her teeth leaned over to throw something in the wastebasket and fell hitting her head and her hip on the floor. Patient reports her son and [id number] helped her off the floor and put her in a chair. She was able to walk last night but this morning when she attempted to get up she was very weak and her legs hurt. She denies change in LOC. Patient reports she was recently discharged from [facility] after being treated for CHF and atrial fib. She is on Eliquis. She denies chest pain feeling short of breath or dizziness. She reports she was just off balance and fell. TRAVEL OUTSIDE OF THE [place] IN LAST 30 DAYS: No - Related Data Allergies/Adverse Reactions: Iodinated Contrast- Oral and IV Dye [IV Dye, Iodine Containing] Allergy (Severe, Verified 06/09/18 07:37) temporary paralysis of bilateral upper & lower extremities lidocaine [From Aspercreme (lidocaine)] Allergy (Intermediate, Verified 06/09/18 07:37) Generalized rash meloxicam [From Mobic] Allergy (Intermediate, Verified 06/09/18 07:37) uncontrollable "jerking" of corey upper & lower extremities Past Medical History - General Information source: Patient, Emergency Med Personnel, Outside Facility Records - Social History Smoking Status: Unknown if Ever Smoked Cigarette use (# per day): No Frequency of alcohol use: None Drug Abuse: None Lives with: Family Family History: Reviewed & Not Pertinent Patient has suicidal ideation: No Patient has homicidal ideation: No - Past Medical History Cardiac Medical History: Reports: Hx Atrial Fibrillation - post-op 06/24/11, states A fib converted without intervention, Hx Hypertension - MEDS, Hx Heart Murmur - Dx'ed late , denies MVP/SBE prophylaxis Denies: Hx Congestive Heart Failure, Hx Coronary Artery Disease, Hx Heart Attack, Hx Hypercholesterolemia, Hx Peripheral Vascular Disease, Hx Pulmonary Embolism Pulmonary Medical History: Reports: Hx Bronchitis - chronic, r/t 3 ppd cigarette smoking, Hx COPD Denies: Hx Asthma, Hx Pneumonia, Hx Respiratory Failure, Hx Sleep Apnea, Hx Tuberculosis Neurological Medical History: Denies: Hx Cerebrovascular Accident, Hx Seizures Renal/ Medical History: Denies: Hx Ovarian Cysts, Hx Peritoneal Dialysis, Hx Pelvic Inflammatory Disease Malignancy Medical History: Denies: Hx Breast Cancer, Hx Cervical Cancer, Hx Leukemia, Hx Lung Cancer, Hx Ovarian Cancer GI Medical History: Denies: Hx Crohn's Disease, Hx Gastroesophageal Reflux Disease, Hx Hepatitis, Hx Hiatal Hernia, Hx Irritable Bowel, Hx Liver Failure, Hx Pancreatitis, Hx Ulcer Musculoskeletal Medical History: Reports Hx Arthritis, Denies Hx Fibromyalgia, Denies Hx Muscular Dystrophy Traumatic Medical History: Reports: Hx Fractures - RT tib/fib 1964, cast application Infectious Medical History: Denies: Hx Hepatitis, Hx HIV Past Surgical History: Reports: Hx Appendectomy - 1953, Hx Hysterectomy, Hx Orthopedic Surgery - Bilateral total hip replacement. Denies: Hx Bowel Surgery, Hx Section, Hx Cholecystectomy, Hx Colostomy, Hx Coronary Artery Bypass Graft, Hx Gastric Bypass Surgery, Hx Herniorrhaphy, Hx Mastectomy, Hx Open Heart Surgery, Hx Pacemaker, Hx Tonsillectomy, Hx Tubal Ligation - Immunizations Hx Diphtheria, Pertussis, Tetanus Vaccination: No Hx Pneumococcal Vaccination: 05/30/04 Review of Systems - Review of Systems Notes: Review HPI for review of systems., All other systems negative Physical Exam - Vital signs Vitals: Temp Pulse Resp BP Pulse Ox 98.0 F 97 20 114/65 91 L 06/09/18 07:50 06/09/18 07:50 06/09/18 07:50 06/09/18 07:50 06/09/18 07:50 - General General appearance: Alert In distress: None - HEENT Head: Other - Swelling noted to the proximal parietal area, no open wounds. No: Waite's sign, Ecchymosis, Open wounds, Racoon's eyes Eyes: No: Periorbital ecchymosis, Scleral icterus Conjunctiva: Normal. No: Injected Extraocular movements intact: Yes Pupils: PERRL. No: Dilated, Fixed Mouth/Lips: Normal Mucous membranes: Moist - Respiratory Respiratory status: No respiratory distress Chest status: Nontender Breath sounds: Normal Chest palpation: Normal - Cardiovascular Rhythm: Regular Heart sounds: Normal auscultation Murmur: Yes - Abdominal Inspection: Normal Distension: No distension Bowel sounds: Normal Tenderness: Nontender Organomegaly: No organomegaly - Back Back: Normal, Nontender - Extremities General upper extremity: Normal ROM, Normal temperature General lower extremity: Edema - bilateral, Normal ROM, Normal temperature Shoulder: Tender - pt reports same ttp as she has had for a while, no new pain Arm: Normal Elbow: Normal, Nontender Forearm: Other - Left forearm dressing in place from a prior skin tear Hand: Ecchymosis - Left hand palm Hip: Normal, Nontender Thigh: Normal, Nontender Knee: Normal Ankle: Nontender, Edema Foot: Nontender, Edema Notes: left buttocks with ecchymosis, firm - Neurological Neuro grossly intact: Yes Cognition: Normal Orientation: AAOx4 Anita Coma Scale Eye Opening: Spontaneous Anita Coma Scale Verbal: Oriented [place] Coma Scale Motor: Obeys Commands [place] Coma Scale Total: 15 Speech: Normal Cranial nerves: Normal 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 Patient rolls turns herself without any problems. 06/09/18 10:43 Labs unremarkable PT PTT elevated patient is on Eliquis. H/H decreased from last visit in September from 14.5/ to 9.6/patient reports history of transfusion for a "slow bleed" CT of the head shows hematoma as expected no bleed. Consulted with Dr. Connor. He agrees that patient can ambulate without problems may be able to be discharged. 06/09/18 12:13 Patient ambulated from the emergency department with oxygen her O2 dropped down to 84% . Discussed admission with patient and [id number]. At first they requested transfer because they did not like the doctors here. We discussed how the hospitals were full at this time but I would gladly try. Her pcp is Dr Silvano Gandhi here in [place]. The family agrees to admission to [facility] at this time - Vital Signs Vital signs: Temp Pulse Resp BP Pulse Ox 97.6 F 62 24 H 115/73 94 06/09/18 11:33 06/09/18 11:33 06/09/18 14:01 06/09/18 14:01 06/09/18 14:01 - Laboratory Result Diagrams: 06/09/18 09:16 06/09/18 09:16 Laboratory results interpreted by me: 06/09/18 06/09/18 06/09/18 09:16 09:16 09:16 WBC 11.1 H RBC 3.52 L Hgb 9.6 L Hct 31.7 L MCHC 30.3 L RDW 19.3 H Seg Neutrophils % 88.7 H Lymphocytes % 5.7 L Absolute Neutrophils 9.8 H PT 16.1 H APTT 36.0 H Sodium 136.0 L Chloride 94 L Carbon Dioxide 39 H Anion Gap 3 L Creatinine 0.42 L Total Protein 5.5 L Albumin 3.1 L Urine Urobilinogen Ur Leukocyte Esterase Urine Ascorbic Acid 06/09/18 10:01 WBC RBC Hgb Hct MCHC RDW Seg Neutrophils % Lymphocytes % Absolute Neutrophils PT APTT Sodium Chloride Carbon Dioxide Anion Gap Creatinine Total Protein Albumin Urine Urobilinogen 2.0 H Ur Leukocyte Esterase SMALL H Urine Ascorbic Acid 40 H - Diagnostic Test Radiology reviewed: Image reviewed, Reports reviewed - EXAM DESCRIPTION: HIP LEFT AP/LATERAL COMPLETED DATE/TIME: 06/09/2018 8:51 am REASON FOR STUDY: fall, hit head and hip, COMPARISON: 10/13/2017. NUMBER OF VIEWS: Two views. TECHNIQUE: AP pelvis and additional frog-leg view of the left hip. LIMITATIONS: None. FINDINGS: MINERALIZATION: Normal. LEFT HIP: Intact prosthesis. No fracture or dislocation. No worrisome bone lesions. RIGHT HIP: Intact prosthesis. No fracture or dislocation. No worrisome bone lesions. PUBIS AND ISCHIUM: No fracture. PELVIS: No fracture. SACRUM: No fracture or dislocation. No worrisome bone lesions. LOWER LUMBAR SPINE: No fracture or disl ocation. No worrisome bone lesions. Degenerative disc disease. SOFT TISSUES: No findings. OTHER: Calcified left common iliac artery aneurysm. IMPRESSION: INTACT BILATERAL HIP PROSTHESES. STABLE CHRONIC FINDINGS ABOVE. NO RADIOGRAPHIC EVIDENCE OF ACUTE INJURY. EXAM DESCRIPTION: CT HEAD WITHOUT COMPLETED DATE/TIME: 06/09/2018 8:32 am REASON FOR STUDY: fall, hit head and hip, COMPARISON: None. TECHNIQUE: Axial images acquired through the brain without intravenous contrast. Images reviewed with bone, brain and subdural windows. Additional sagittal and coronal reconstructions were generated. Images stored on PACS. All CT scanners at this facility use dose modulation, iterative reconstruction, and/or weight based dosing when appropriate to reduce radiation dose to as low as reasonably achievable (ALARA). [facility]: Dose Right [facility]: CareDose [facility]: Dose Right [facility]: Teradose 4D [facility]: Eyefreight RADIATION DOSE: CT Rad equipment meets quality standard of care and radiation dose reduction techniques were employed. CTDIvol: 53.2 mGy. DLP: 991 mGy-cm. mGy. LIMITATIONS: None. FINDINGS: VENTRICLES: Normal size and contour. CEREBRUM: No masses. No hemorrhage. No midline shift. No evidence for acute infarction. Normal ferris/white matter differentiation. No areas of low density in the white matter. CEREBELLUM: No masses. No hemorrhage. No alteration of density. No evidence for acute infarction. EXTRAAXIAL SPACES: No fluid collections. No masses. ORBITS AND GLOBE: No intra- or extraconal masses. Normal contour of globe without masses. CALVARIUM: No fracture. PARANASAL SINUSES: No fluid or mucosal thickening. SOFT TISSUES: Soft tissue hematoma of the left scalp vertex. OTHER: No other significant finding. IMPRESSION: No acute intracranial pathology. Soft tissue hematoma of the left scalp vertex. EVIDENCE OF ACUTE STROKE: NO. Discharge - Discharge Clinical Impression: Fall, Hypoxia Condition: Stable Disposition: ADMITTED INPATIENT Admitting Provider: Janice [facility] [facility] Admitted: Telemetry
--- NOTE | 2018-06-09 08:42 | RADIOLOGY REPORT (SQ) ---
EXAM DESCRIPTION: CT HEAD WITHOUT COMPLETED DATE/TIME: 06/09/2018 8:32 am REASON FOR STUDY: fall, hit head and hip, COMPARISON: None. TECHNIQUE: Axial images acquired through the brain without intravenous contrast. Images reviewed wi th bone, brain and subdural windows. Additional sagittal and coronal reconstructions were generated. Images stored on PACS. All CT scanners at this facility use dose modulation, iterative reconstruction, and/or weight based d osing when appropriate to reduce radiation dose to as low as reasonably achievable (ALARA). [facility]: Dose Right [facility]: CareDose [facility]: Dose Right [facility]: Teradose 4D [facility]: Smart Swap[employer]it RADIATION DOSE: CT Rad equipment meets quality standard of care and radiation dose reduction techniq ues were employed. CTDIvol: 53.2 mGy. DLP: 991 mGy-cm. mGy. LIMITATIONS: None. FINDINGS: VENTRICLES: Normal size and contour. CEREBRUM: No masses. No hemorrhage. No midline shift. No evidence for acute infarction. Normal gra y/white matter differentiation. No areas of low density in the white matter. CEREBELLUM: No masses. No hemorrhage. No alteration of density. No evidence for acute infarction. EXTRAAXIAL SPACES: No fluid collections. No masses. ORBITS AND GLOBE: No intra- or extraconal masses. Normal contour of globe without masses. CALVARIUM: No fracture. PARANASAL SINUSES: No fluid or mucosal thickening. SOFT TISSUES: Soft tissue hematoma of the left scalp vertex. OTHER: No other significant finding. IMPRESSION: No acute intracranial pathology. Soft tissue hematoma of the left scalp vertex. EVIDENCE OF ACUTE STROKE: NO. COMMENT: Quality ID # [id number]: Final reports with documentation of one or more dose reduction techniques (e.g., Automated exposure control, adjustment of the mA and/or kV according to patient size, use of iterative reconstruction technique) TECHNICAL DOCUMENTATION: JOB ID: [id number] [employer]- All Rights Reserved Reading location - IP/workstation name: [email or web address]
--- NOTE | 2018-06-09 09:07 | RADIOLOGY REPORT (SQ) ---
EXAM DESCRIPTION: HIP LEFT AP/LATERAL COMPLETED DATE/TIME: 06/09/2018 8:51 am REASON FOR STUDY: fall, hit head and hip, COMPARISON: 10/13/2017. NUMBER OF VIEWS: Two views. TECHNIQUE: AP pelvis and additional frog-leg view of the left hip. LIMITATIONS: None. FINDINGS: MINERALIZATION: Normal. LEFT HIP: Intact prosthesis. No fracture or dislocation. No worrisome bone lesions. RIGHT HIP: Intact prosthesis. No fracture or dislocation. No worrisome bone lesions. PUBIS AND ISCHIUM: No fracture. PELVIS: No fracture. SACRUM: No fracture or dislocation. No worrisome bone lesions. LOWER LUMBAR SPINE: No fracture or dislocation. No worrisome bone lesions. Degenerative disc disease . SOFT TISSUES: No findings. OTHER: Calcified left common iliac artery aneurysm. IMPRESSION: INTACT BILATERAL HIP PROSTHESES. STABLE CHRONIC FINDINGS ABOVE. NO RADIOGRAPHIC EVID ENCE OF ACUTE INJURY. TECHNICAL DOCUMENTATION: JOB ID: [id number] [employer]- All Rights Reserved Reading location - IP/workstation name: [facility]
[2018-06-09 09:31] LABS: ABSOLUTE BASOPHILS # (AUTO) 0.1 10^3/uL (0.0-0.2); ABSOLUTE LYMPHOCYTES (AUTO) 0.6 10^3/uL (0.5-4.7); ABSOLUTE MONOCYTES (AUTO) 0.5 10^3/uL (0.1-1.4); ABSOLUTE NEUT (AUTO) 9.8 10^3/uL (1.7-8.2); BASOPHILS % (AUTO) 0.6 % (0-2); EOSINOPHILS % (AUTO) 0.2 % (0-6); HEMATOCRIT 31.7 % (36.0-47.0); HEMOGLOBIN 9.6 g/dL (12.0-15.5); LYMPHOCYTES % (AUTO) 5.7 % (13-45); MEAN CORPUSCULAR HEMOGLOBIN 27.2 pg (27.0-33.4); MEAN CORPUSCULAR HGB CONC 30.3 g/dL (32.0-36.0); MEAN CORPUSCULAR VOLUME 90 fl (80-97); MONOCYTES % (AUTO) 4.8 % (3-13); PLATELET COUNT 276 10^3/uL (150-450); RED BLOOD COUNT 3.52 10^6/uL (3.72-5.28); RED CELL DISTRIBUTION WIDTH 19.3 % (11.5-14.0); SEGMENTED NEUTROPHILS % (AUTO) 88.7 % (42-78); TOTAL CELLS COUNTED % (AUTO) 100 %; WHITE BLOOD COUNT 11.1 10^3/uL (4.0-10.5)
[2018-06-09 09:36] LABS: INTERNATIONAL RATION (INR) 1.23; PROTHROMBIN TIME 16.1 SEC (11.4-15.4)
[2018-06-09 09:44] LABS: ALANINE AMINOTRANSFERASE 29 U/L (9-52); ALBUMIN 3.1 g/dL (3.5-5.0); ALKALINE PHOSPHATASE 77 U/L (38-126); ASPARTATE AMINO TRANSFERASE 16 U/L (14-36); BILIRUBIN,DIRECT 0.2 mg/dL (0.0-0.4); BILIRUBIN,TOTAL 0.4 mg/dL (0.2-1.3); BLOOD UREA NITROGEN 12 mg/dL (7-20); CALCIUM 9.3 mg/dL (8.4-10.2); GLUCOSE 104 mg/dL (75-110); POTASSIUM 4.3 mmol/L (3.6-5.0); TOTAL PROTEIN 5.5 g/dL (6.3-8.2)
[2018-06-09 09:50] LABS: CHLORIDE 94 mmol/L (98-107)
[2018-06-09 09:51] LABS: CARBON DIOXIDE 39 mmol/L (22-30)
[2018-06-09 09:52] LABS: ANION GAP 3 (5-19)
[2018-06-09 10:35] LABS: APPEARANCE,URINE SLIGHTLY-CLOUDY; BILIRUBIN,URINE NEGATIVE (NEGATIVE); COLOR,URINE YELLOW; GLUCOSE, URINE NEGATIVE (NEGATIVE); KETONES,URINE NEGATIVE (NEGATIVE); LEUKOCYTE ESTERASE,URINE SMALL (NEGATIVE); NITRITE,URINE NEGATIVE (NEGATIVE); PROTEIN,URINE NEGATIVE (NEGATIVE); URINE SPECIFIC GRAVITY 1.019
--- NOTE | 2018-06-09 13:21 | RADIOLOGY REPORT (SQ) ---
EXAM DESCRIPTION: CHEST SINGLE VIEW COMPLETED DATE/TIME: 06/09/2018 1:01 pm REASON FOR STUDY: low o2sat, hx copd COMPARISON: 10/13/2017. EXAM PARAMETERS: NUMBER OF VIEWS: One view. TECHNIQUE: Single frontal radiographic view of the chest acquired. RADIATION DOSE: NA LIMITATIONS: None. FINDINGS: LUNGS AND PLEURA: Diffuse interstitial prominence. No opacities, masses or pneumothorax. No pleural effusion. MEDIASTINUM AND HILAR STRUCTURES: No masses. Contour normal. HEART AND VASCULAR STRUCTURES: Cardiomegaly. BONES: No acute findings. Chronic changes in the spine and shoulders. HARDWARE: None in the chest. OTHER: No other significant finding. IMPRESSION: CARDIOMEGALY. DIFFUSE INTERSTITIAL PROMINENCE PROBABLY DUE TO CHRONIC SCARRING ALTHOUGH THERE COULD BE A COMPONENT OF INTERSTITIAL EDEMA. TECHNICAL DOCUMENTATION: JOB ID: [id number] [employer]- All Rights Reserved Reading location - IP/workstation name: [email or web address]
[2018-06-09] MEDS: HEPARIN SOD (PORCINE) 5,000 UNIT/ML 1 ML SYRINGE SUBCUT SCH ×2 (15:18→22:23)
[2018-06-09] MEDS ORDERED: FUROSEMIDE INJ/PF 40 MG/4 ML SDV IV ONE (15:30)
[2018-06-09] MEDS ORDERED: ALBUTEROL SULFATE 0.083% NEB 2.5 MG/3 ML AMPUL NEB PRN (15:31)
[2018-06-09] MEDS ORDERED: (PENDING PHARMACY ID) (Diltiazem Hcl [Cartia Xt] 240 MG) PO SCH (15:45)
[2018-06-09] MEDS ORDERED: (PENDING PHARMACY ID) (Potassium Chloride [Klor-Con] 20 MEQ) PO SCH (18:00)
[2018-06-09] MEDS: APIXABAN 5 MG TABLET PO SCH (19:01)
[2018-06-09] MEDS: POTASSIUM CHLORIDE 10 MEQ CAPSULE.ER PO SCH (19:02)
[2018-06-09] MEDS: DILTIAZEM HCL 240 MG CAPSULE.CR PO SCH (19:02)
[2018-06-09] MEDS: FLUTICASONE/SALMETEROL DISKUS 250-50 MCG/DOSE IH SCH (22:23)
--- NOTE | 2018-06-09 23:41 | XCELERA REPORT ---
[address] [address] Transthoracic Echocardiogram Report Name: KASSIE TORO Age: 83 yrs Gender: Female : 1935 Patient Status: Inpatient Patient Location: [address] [place], [place] [address] Study Date: 06/09/2018 07:23 PM Height: 69 in Weight: 185 lb BSA: 2.0 m2 Procedure: A two-dimensional transthoracic echocardiogram with color flow and Doppler was performed. The study was technically difficult with many images being suboptimal in quality. Reason For Study: Pulmonary edmea History: Pulmonary edmea. Ordering Physician: DARSHANA DINH Performed By: Starr Pérez Interpretation Summary The left ventricle is normal in size. There is normal left ventricular wall thickness. LV EF is 60% Left ventricular systolic function is normal. Probably no regional wall motion abnormlity. There is no thrombus. The right ventricle is grossly normal size. The left atrium is mildly dilated. The right atrium is mildly dilated. There is mild to moderate mitral annular calcification. There is no evidence of mitral valve prolapse. There is no vegetation seen on the mitral valve. There is no mitral valve stenosis. There is a mild amount of mitral regurgitation There is no aortic valvular vegetation. There is mild aortic stenosis There is a peak gradient of 30 mm of Hg. There is no LVOT obstruction. There is a mild amount of aortic regurgitation There is no tricuspid stenosis. There is a mild amount of tricuspid regurgitation There is mild pulmonary hypertension by echo RVSP is 35 to 40 mm of Hg , wih RA mean of 5 to 10. The inferior vena cava appeared normal and decreased > 50% with respiration (RAP 5-10 mmHg) There is no pericardial effusion. MMode/2D Measurements & Calculations RVDd: 2.4 cm LVIDd: 5.1 cm FS: 26.3 % Ao root diam: 3.0 cm IVSd: 1.1 cm LVIDs: 3.7 cm EDV(Teich): 121.5 ml Ao root area: 6.9 cm2 LVPWd: 1.0 cm ESV(Teich): 59.2 ml LA dimension: 3.9 cm EF(Teich): 51.2 % LVOT diam: 1.9 cm LVOT area: 3.0 cm2 Doppler Measurements & Calculations MV E max deandre: MV P1/2t max deandre: Ao V2 max: AI max deandre: 162.9 cm/sec 232.4 cm/sec 299.1 cm/sec 352.2 cm/sec MV P1/2t: 60.8 msec Ao max PG: AI max PG: MVA(P1/2t): 3.6 cm2 35.8 mmHg 49.9 mmHg MV dec slope: Ao V2 mean: AI dec slope: 245.1 cm/sec 259.8 cm/sec2 1119 cm/sec2 Ao mean PG: AI P1/2t: MV dec time: 26.1 mmHg 397.0 msec 0.38 sec Ao V2 VTI: 61.3 cm CONRAD(I,D): 1.4 cm2 CONRAD(V,D): 1.5 cm2 LV V1 max PG: SV(LVOT): 87.2 ml PA V2 max: PI end-d deandre: 8.5 mmHg 104.1 cm/sec 105.6 cm/sec LV V1 mean PG: PA max P.8 mmHg 4.3 mmHg LV V1 max: 145.6 cm/sec LV V1 mean: 100.1 cm/sec LV V1 VTI: 29.3 cm TR max deandre: AV P1/2t-pr_phl: MV P1/2t-pr_phl: 270.5 cm/sec 406.0 msec 60.8 msec TR max P.3 mmHg Left Ventricle The left ventricle is normal in size. There is normal left ventricular wall thickness. LV EF is 60%. Left ventricular systolic function is normal. LV diastolic function could not be adequately assessed due to atrial fibrilation. Probably no regional wall motion abnormlity. There is no thrombus. Right Ventricle The right ventricle is grossly normal size. The right ventricle is not well visualized secondary to technical limitations. Atria The right atrium is mildly dilated. The left atrium is mildly dilated. Mitral Valve There is mild to moderate mitral annular calcification. There is no evidence of mitral valve prolapse. There is no vegetation seen on the mitral valve. There is no mitral valve stenosis. There is a mild amount of mitral regurgitation. Aortic Valve There is no aortic valvular vegetation. There is mild aortic stenosis. There is a peak gradient of 30 mm of Hg. There is no LVOT obstruction. There is a mild amount of aortic regurgitation. Tricuspid Valve There is no tricuspid stenosis. There is a mild amount of tricuspid regurgitation. There is mild pulmonary hypertension by echo. RVSP is 35 to 40 mm of Hg , wih RA mean of 5 to 10. Pulmonic Valve The pulmonic valve is not well visualized. Great Vessels The aortic root is normal size. The inferior vena cava appeared normal and decreased > 50% with respiration (RAP 5-10 mmHg). Effusions There is no pericardial effusion. : DARSHANA DINH > Terese Robertson
--- NOTE | 2018-06-09 23:57 | HISTORY AND PHYSICAL E ---
History and Physical NAME: KASSIE TORO : 1935 AGE: 83Y ADMITTED: 06/09/2018 ROOM: 313 CODE STATUS: FULL CODE. PRIMARY CARE PROVIDER: Tanner Godfrey PA-C. CHIEF COMPLAINT: Fall. HISTORY OF PRESENT ILLNESS: The patient is an 83-year-old female with a past medical history of atrial fibrillation with chronic anticoagulation. The patient presented to the emergency department after sustaining a fall. According to the patient, she was brushing her teeth and she leaned over to throw something in the waste basket and lost her balance. The patient stated that she fell and struck her head, as well as her hip, on the floor. The patient reports that her son and fshaghsu-ki-vvl helped her off the floor and put her in the chair. The patient was able to walk around the house after the event; however, when she attempted to get up this morning, she was very weak and her leg hurt. The patient denies any loss of consciousness. The patient actually has just been discharged from [facility] after being treated for CHF and atrial fibrillation. The patient is on Eliquis. The patient denies any chest pain. No feeling of significant shortness of breath or dizziness. The patient stated she just lost her balance and fell. Upon presentation to the emergency department, the patient was found to be in Afib with a rate of about 130. The patient was not symptomatic to this. The patient was normotensive; however, she was tachypneic, with a rate of 24. The patient was attempted ambulation and her oxygen saturations fell to 84% on room air. Given these findings, the patient has been referred to the hospital for admission and management. PAST MEDICAL HISTORY: Remarkable for: 1. Chronic atrial fibrillation. 2. Hypertension. 3. Chronic bronchitis. 4. Chronic obstructive pulmonary disease. 5. Osteoarthritis. PAST SURGICAL HISTORY: Includes: 1. An ablation back in 2011 for her Afib. 2. Appendectomy in 4. 3. Hysterectomy. 4. Orthopedic surgery, which included a bilateral total hip replacement. 5. Several left hip revisions after her replacement. 6. Two different spinal surgeries. ALLERGIES: Include: 1. IV CONTRAST. 2. LIDOCAINE. 3. MELOXICAM. HOME MEDICATIONS: Include: 1. Albuterol nebulizers, 1 neb q.12 hours p.r.n. 2. Eliquis 5 mg p.o. b.i.d. 3. Diltiazem XT 240 mg p.o. q.12 hours. 4. Benadryl 25 mg p.o. q.12 hours. 5. Vitamin D 50,000 units p.o. weekly on Tuesday. 6. Advair 250/50 one puff inhalation q.12 hours. 7. Lasix 40 mg p.o. q. a.m. 8. Potassium chloride 20 mEq p.o. t.i.d. SOCIAL HISTORY: The patient currently resides at home with her son, unfortunately who has an LVAD in place. [id number] is having to take care of both her and her son. The patient is a retired [employer]. 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 The patient does have a long history of tobacco use. The patient reports a 65-year pack history. She stopped smoking in February. Denies any alcohol use or illicit drug use. FAMILY MEDICAL HISTORY: The patient's father is of complications of diabetes. The patient's mother of old age at the age of 99. The patient has had a brother that has from cancer and a sister as well that is alive with diabetes. The patient has older siblings that have from what the patient describes as old age. REVIEW OF SYSTEMS: CONSTITUTIONAL: Patient denies any fever or chills. No change in appetite. Does admit to some intermittent dizziness as well as weakness. INTEGUMENTARY: The patient denies any diaphoresis, rash, bruising or itching. ENT: Denies any vision changes, hearing loss, nasal drainage or sore throat. No headache or dizziness. CARDIAC: The patient denies any heart palpitations or chest pain. She does admit to peripheral edema. Today is worse than normal. RESPIRATORY: Denies any cough, sputum production or hemoptysis. GI: Denies any nausea, vomiting, diarrhea. No abdominal pain, bloody hematemesis or constipation. No melena or hematochezia. : No nausea, hematuria or dysuria. MUSCULOSKELETAL: Denies any significant change in her pain. The patient does have chronic right shoulder pain and does have some acute pain associated with her fall. NEUROLOGICAL: No seizures, tremors or loss of consciousness. DERMATOLOGICAL: Denies any easy bruising. ENDOCRINE: Denies any recent weight changes. PSYCHIATRIC: Denies any suicidal or homicidal ideation. The rest of the review of systems is otherwise negative. PHYSICAL EXAMINATION: GENERAL: On examination, the patient is a well-developed, well-nourished 83-year-old female who is awake, alert. She is oriented to person, place, time and situation. She is verbal and conversational. Does not appear to be in acute distress. VITAL SIGNS: Temperature is 97.6, pulse 125, respirations 22, blood pressure is 111/57, oxygen saturation 94% on 3 liters nasal cannula. SKIN: Warm and dry. No rash. She is not diaphoretic. HEENT: Pupils equal, round and reactive to light and accommodation. Conjunctivae are pink. Sclerae with no icterus. There are no mouth lesions. Tongue is midline. NECK: Supple. The patient does have JVP at the right clavicle. No lymphadenopathy or thyromegaly. CVS: Heart is irregularly irregular. No rub. CHEST: Diminished, symmetrical, with bilateral basal crackles. ABDOMEN: Soft, nontender, nondistended. Bowel sounds are present. No palpable organomegaly. BACK: No CVA tenderness or sacral edema. EXTREMITIES: No clubbing, cyanosis. The patient does have +1 bilateral lower extremity pitting edema with no peripheral signs of embolization. Trace pedal pulses noted bilaterally. Appropriate capillary refill. PSYCHIATRIC: Appropriate affect, pleasant mood. DIAGNOSTICS: Lab values are as follows: Hematology obtained on 06/09/2018: WBC is 11.1, hemoglobin is 9.6, hematocrit is 31.7, platelet count is 276,000. Coagulation obtained on 06/09/2018: PT is , INR is 1.23. Chemistry obtained on : Sodium is 136, potassium is 4.3, chloride is 94, carbon dioxide is 34, BUN 12, creatinine is 0.42. Glucose 104, calcium is 9.3. Bilirubin is 0.4. AST 16, ALT is 20, alk phos 77, total protein is 5.5, albumin is 3.1. Urinalysis obtained on 06/09/2018: Color: Yellow. Appearance: Slightly cloudy. The pH is 5.0, specific gravity is 1.019. Protein negative, glucose negative, ketones negative, nitrite negative, bili negative, urobilinogens 2.05. WBCs 41, RBCs 1, bacteria trace. Head CT obtained on 06/09/2018 revealed no acute intracranial pathology. Hip x-ray obtained on 06/09/2018 revealed intact bilateral hip prostheses. Chest x-ray obtained on 06/09/2018 revealed cardiomegaly with diffuse interstitial prominence, probably due to chronic scarring, although could be a component of interstitial edema. ASSESSMENT AND PLAN: 1. Acute on chronic most likely diastolic congestive heart failure. Will diurese the patient with 40 of Lasix. Additionally, will obtain an echo as there has not been one obtained here for further evaluation. The patient was recently admitted for the same process. 2. Atrial fibrillation. The patient has poor rate control at this time. She balances between 110 and 125. Have resumed the patient's home medications, as well as her chronic anticoagulation, and follow. 3. Chronic anticoagulation. The patient is chronically anticoagulated with Eliquis. 4. Acute on chronic hypoxemic respiratory failure. Patient is currently requiring O2 at 2 liters. Will follow. 5. Recent fall. Will consult Physical Therapy. DISPOSITION: The patient is a FULL CODE. Pending patient's symptomatology and diagnostic findings, will reevaluate in the a.m. We will admit the patient to inpatient IMCU, as the patient's expected length of stay should surpass 2 midnights. Time spent on this admission, including assessment, plan, physical examination, patient education, review of records and family meeting, is 70 minutes. DICTATING PHYSICIAN: DARSHANA DINH NP [id number] PHY#: [id number] ID: [id number] JOB#: [id number] ACCT: [id number] cc:MD DARSHANA Gonzalez NP > MTDD
[2018-06-10 05:57] LABS: HEMOGLOBIN 8.8 g/dL (12.0-15.5); MEAN CORPUSCULAR HEMOGLOBIN 27.9 pg (27.0-33.4); MEAN CORPUSCULAR HGB CONC 31.3 g/dL (32.0-36.0); MEAN CORPUSCULAR VOLUME 89 fl (80-97); PLATELET COUNT 233 10^3/uL (150-450); RED BLOOD COUNT 3.14 10^6/uL (3.72-5.28); RED CELL DISTRIBUTION WIDTH 19.5 % (11.5-14.0); WHITE BLOOD COUNT 12.5 10^3/uL (4.0-10.5)
[2018-06-10 06:19] LABS: BLOOD UREA NITROGEN 15 mg/dL (7-20); CALCIUM 9.1 mg/dL (8.4-10.2); GLUCOSE 106 mg/dL (75-110); POTASSIUM 3.8 mmol/L (3.6-5.0)
[2018-06-10] MEDS: DILTIAZEM HCL 240 MG CAPSULE.CR PO SCH ×2 (06:22→17:34)
[2018-06-10] MEDS: HEPARIN SOD (PORCINE) 5,000 UNIT/ML 1 ML SYRINGE SUBCUT SCH ×3 (06:23→21:17)
[2018-06-10 06:39] LABS: CHLORIDE 92 mmol/L (98-107); SODIUM 136.9 mmol/L (137-145)
[2018-06-10 06:54] LABS: ANION GAP 4 (5-19)
[2018-06-10 06:57] LABS: CARBON DIOXIDE 41 mmol/L (22-30)
[2018-06-10] MEDS: FUROSEMIDE 40 MG TABLET PO SCH (08:50)
[2018-06-10] MEDS: POTASSIUM CHLORIDE 10 MEQ CAPSULE.ER PO SCH ×2 (09:08→17:39)
[2018-06-10] MEDS: FLUTICASONE/SALMETEROL DISKUS 250-50 MCG/DOSE IH SCH ×2 (09:08→21:17)
[2018-06-10] MEDS: APIXABAN 5 MG TABLET PO SCH ×2 (09:08→17:39)
[2018-06-10] MEDS: ACETAMINOPHEN 325 MG TABLET PO PRN (09:14)
[2018-06-10 11:43] LABS: VENOUS BLOOD BASE EXCESS 14.8 mmol/L; VENOUS BLOOD HCO3 43.1 mmol/L (20-32); VENOUS BLOOD PH 7.36 (7.30-7.42)
[2018-06-10 11:49] LABS: VENOUS BLOOD PCO2 78.1 mmHg (35-63)
[2018-06-10] MEDS ORDERED: FUROSEMIDE INJ/PF 40 MG/4 ML SDV IV ONE (12:27)
[2018-06-10] MEDS ORDERED: FUROSEMIDE INJ/PF 40 MG/4 ML SDV ONE (13:07)
[2018-06-10 15:15] LABS: VENOUS BLOOD BASE EXCESS 15.3 mmol/L; VENOUS BLOOD HCO3 42.8 mmol/L (20-32); VENOUS BLOOD PH 7.39 (7.30-7.42)
[2018-06-10 15:19] LABS: VENOUS BLOOD PCO2 71.8 mmHg (35-63)
--- NOTE | 2018-06-10 23:37 | PROGRESS NOTE E ---
Progress Note NAME: KASSIE TORO : 1935 AGE: 83Y DATE: 06/10/2018 ROOM: 313 SUBJECTIVE: The patient is currently lying in bed. She states that she feels about the same today. She is complaining of ongoing left hip pain. The patient denies any nausea, vomiting. No diarrhea. No shortness of breath, dizziness, chest pain. No fevers, chills. The patient has been afebrile. Her blood pressure has been in a good range and the patient does not voice any other concerns at this time. REVIEW OF SYSTEMS: The rest of review of systems is negative. MEDICATIONS: Have been reviewed. OBJECTIVE: GENERAL: The patient is an 83-year-old female who is awake, alert, and oriented to person, time, place, situation. She is verbal, conversational. Does not appear to be in any acute distress. VITAL SIGNS: Temperature is 97.8, pulse 85, respirations 14, blood pressure is 111/53, oxygen saturation is 91% on room air. SKIN: Warm and dry. No rash. She is not diaphoretic. HEENT: Pupils equal, round and reactive to light and accommodation. Conjunctivae are pink. The patient does have JVP at the right clavicle. CARDIOVASCULAR: Heart is regular. There is no murmur or rub. CHEST: Clear, symmetrical, unlabored. ABDOMEN: Soft, nontender. EXTREMITIES: No clubbing, cyanosis, edema. PSYCHIATRIC: Appropriate affect, pleasant mood. DIAGNOSTICS: Lab values are as follows - Hematology obtained on 06/10/2018; WBC is 10.5, hemoglobin is 9.8, hematocrit is 28.0, platelet count is 233,000. Chemistry obtained on 06/10/2018; sodium is 136, potassium 3.8, chloride is 92, carbon dioxide 41, BUN 15, creatinine is 0.53, glucose 106, calcium is 9.1, magnesium is 2.0. IMPRESSION AND PLAN: 1. ACUTE ON CHRONIC DIASTOLIC CONGESTIVE HEART FAILURE. The patient has been diuresed, we will give another dose again today. The patient overall appears to be breathing more comfortably. Will follow. 2. HYPERCAPNIA. The patient's CO2 is high on her chemistry. I looked back in September and it was normal. I do have a suspicion the patient is having hypercapnia, therefore, we will obtain a venous blood gas, if so we will apply BiPAP and follow. 3. CHRONIC ATRIAL FIBRILLATION. The patient is much better rate controlled at this time. Have continued the patient's home medications and follow. 4. CHRONIC ANTICOAGULATION. The patient has been chronically anticoagulated with Eliquis. 5. ACUTE ON CHRONIC HYPOXEMIC RESPIRATORY FAILURE. The patient has actually been on room air. She may have a hypercapnic component to this as well. Will follow. 6. RECENT FALL. Will re-image the patient's left hip since this is ongoing pain and consult physical therapy. CODE STATUS: The patient is a full code. DISPOSITION: Depending on the patient's symptomatology and diagnostic findings will reevaluate in the a.m. The patient is on the list for transfer at [facility] at the family's request. TIME SPENT: On this follow up, including assessment and plan, physical examination, patient education, review of records is 35 minutes. DICTATING PHYSICIAN: DARSHANA DINH NP [id number] PHY#: [id number] ID: [id number] JOB#: [id number] ACCT: [id number] cc: >
[2018-06-11] MEDS: HEPARIN SOD (PORCINE) 5,000 UNIT/ML 1 ML SYRINGE SUBCUT SCH ×3 (05:24→21:18)
[2018-06-11] MEDS: DILTIAZEM HCL 240 MG CAPSULE.CR PO SCH ×2 (05:24→17:36)
[2018-06-11 06:23] LABS: HEMATOCRIT 27.6 % (36.0-47.0); HEMOGLOBIN 8.6 g/dL (12.0-15.5); MEAN CORPUSCULAR HEMOGLOBIN 27.7 pg (27.0-33.4); MEAN CORPUSCULAR HGB CONC 31.3 g/dL (32.0-36.0); MEAN CORPUSCULAR VOLUME 88 fl (80-97); PLATELET COUNT 250 10^3/uL (150-450); RED BLOOD COUNT 3.12 10^6/uL (3.72-5.28); RED CELL DISTRIBUTION WIDTH 19.2 % (11.5-14.0); WHITE BLOOD COUNT 12.4 10^3/uL (4.0-10.5)
[2018-06-11 06:26] LABS: VENOUS BLOOD BASE EXCESS 14.7 mmol/L; VENOUS BLOOD HCO3 42.5 mmol/L (20-32); VENOUS BLOOD PH 7.37 (7.30-7.42)
[2018-06-11 06:33] LABS: VENOUS BLOOD PCO2 74.5 mmHg (35-63)
[2018-06-11 06:59] LABS: BLOOD UREA NITROGEN 18 mg/dL (7-20); CALCIUM 9.1 mg/dL (8.4-10.2); CHLORIDE 94 mmol/L (98-107); GLUCOSE 105 mg/dL (75-110); POTASSIUM 4.1 mmol/L (3.6-5.0); SODIUM 137.3 mmol/L (137-145)
[2018-06-11 07:25] LABS: ANION GAP 1 (5-19)
[2018-06-11] MEDS: APIXABAN 5 MG TABLET PO SCH ×2 (10:02→17:36)
[2018-06-11] MEDS: POTASSIUM CHLORIDE 10 MEQ CAPSULE.ER PO SCH (10:02)
[2018-06-11] MEDS: FLUTICASONE/SALMETEROL DISKUS 250-50 MCG/DOSE IH SCH ×2 (10:03→21:18)
[2018-06-11] MEDS: FUROSEMIDE 40 MG TABLET PO SCH (10:03)
[2018-06-11] MEDS: ERGOCALCIFEROL (VITAMIN D2) 50000 UNIT (1.25 MG) CAPSULE PO SCH (10:03)
[2018-06-11] MEDS: ACETAMINOPHEN 325 MG TABLET PO PRN (10:06)
--- NOTE | 2018-06-11 14:39 | RADIOLOGY REPORT (SQ) ---
EXAM DESCRIPTION: CHEST 2 VIEWS COMPLETED DATE/TIME: 06/11/2018 2:28 pm REASON FOR STUDY: FU CHF COMPARISON: 06/09/2018, 08/31/2013 EXAM PARAMETERS: NUMBER OF VIEWS: two views TECHNIQUE: Digital Frontal and Lateral radiographic views of the chest acquired. RADIATION DOSE: NA LIMITATIONS: none FINDINGS: LUNGS AND PLEURA: Bilateral pleural effusions best seen on the lateral film. Fluid in the fissures. Mild interstitial changes. MEDIASTINUM AND HILAR STRUCTURES: No masses or contour abnormalities. HEART AND VASCULAR STRUCTURES: Heart enlarged. Vascular prominence. BONES: No acute findings. HARDWARE: None in the chest. OTHER: No other significant finding. IMPRESSION: Congestive failure with bilateral pleural effusions and possible interstitial edema. No real improvement. TECHNICAL DOCUMENTATION: JOB ID: [id number] [employer]- All Rights Reserved Reading location - IP/workstation name: [email or web address]
--- NOTE | 2018-06-11 15:14 | RADIOLOGY REPORT (SQ) ---
EXAM DESCRIPTION: CT PELVIS WITHOUT COMPLETED DATE/TIME: 06/11/2018 2:41 pm REASON FOR STUDY: s/p fall L hip pain COMPARISON: Plain radiographs TECHNIQUE: CT scan of the pelvis performed without intravenous or oral contrast. Images reviewed wi th soft tissue and bone windows. Reconstructed coronal and sagittal MPR images reviewed. All images stored on PACS. All CT scanners at this facility use dose modulation, iterative reconstruction, and/or weight based d osing when appropriate to reduce radiation dose to as low as reasonably achievable (ALARA). [facility]: Dose Right [facility]: CareDose [facility]: Dose Right [facility]: Teradose 4D [facility]: [employer] RADIATION DOSE: CT Rad equipment meets quality standard of care and radiation dose reduction techniq ues were employed. CTDIvol: 9.2 mGy. DLP: 409 mGy-cm. mGy. LIMITATIONS: None. FINDINGS: PELVIC BONES: No acute fracture. No worrisome bone lesions. VISUALIZED SPINE: Diffuse degenerative changes. No acute fracture. HIP(S): Bilateral hip prostheses. Beam hardening artifact. No obvious fractures. PELVIC SOFT TISSUES: No significant findings. EXTRAPELVIC SOFT TISSUES: Incompletely imaged but present is a 4.6 cm infrarenal abdominal aortic ane urysm. 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 OTHER: No other significant finding. IMPRESSION: No acute pelvic fracture. Abdominal aortic aneurysm and left iliac aneurysm incompletely imaged. COMMENT: Recommend full evaluation of aorta with abdominal aortic ultrasound. TECHNICAL DOCUMENTATION: JOB ID: [id number] Quality ID # [id number]: Final reports with documentation of one or more dose reduction techniques (e.g., Au tomated exposure control, adjustment of the mA and/or kV according to patient size, use of iterative reconstruction technique) 2010 [employer]- All Rights Reserved Reading location - IP/workstation name: [email or web address]
[2018-06-11] MEDS ORDERED: FUROSEMIDE INJ/PF 40 MG/4 ML SDV IV ONE (15:59)
--- NOTE | 2018-06-11 17:32 | PROGRESS NOTE E ---
Progress Note NAME: KASSIE GARLAND : 1935 AGE: 83Y DATE: 06/11/2018 ROOM: [facility] SUBJECTIVE: Ms. Garland is currently lying in bed. She states that she feels about the same as she did yesterday; however, her left hip is hurting more. The patient did ambulate 150 feet with PT yesterday; however, concern is how much pain the patient is having with this left hip. I did discuss the patient's CO2 this morning. She stated that this has been a chronic issue for her in the past and she has worn BiPAP but does not particularly like them and the ones here hurt her face. The patient remained afebrile. Blood pressure has been in good range. The patient's heart rate can be labile. She can tach up to 120s and then down to the 60s and 70s. Overall has made improvement. She sounds clear to auscultation and the patient does not voice any other concerns at this time. BRIEF HISTORY: The patient is an 83-year-old female with a past medical history of atrial fibrillation, tobacco dependency and chronic anticoagulation. The patient presented to the emergency department after sustaining a fall at home when she fell on her left hip. The patient's plain film x-ray did not reveal any acute fracture. During her stay the patient has been seen by Physical Therapy and has ambulated appropriately. The patient's heart rate was initially a little difficult to control; however, the patient was again resumed on her home Cardizem and has had decent control since that time, although her heart rate is labile. The patient's family demanded transfer to [facility]. The patient's missile pad mechanic, Dr. Rai, is there and she would like to be followed by him. I have contacted [facility] and they have the patient on a waiting list; however, there is a long list of patients that are being considered for transfer. Therefore, she will remain here at this time. The patient is noted to have significant hypercapnia; however, this appears to be a chronic issue. The patient does not particularly like to wear the BiPAP. She has been awake and alert and appears stable at this time. REVIEW OF SYSTEMS: The rest of review of systems is negative. MEDICATIONS: Medications have been reviewed. OBJECTIVE: GENERAL: The patient is an 83-year-old female who is awake, alert, and oriented to person, time, place, situation. She is verbal, conversational. Does not appear to be in any acute distress. VITAL SIGNS: Temperature is 97.4, pulse 91, respirations 20, blood pressure is 111/60, oxygen saturation is 97% on 2 liters nasal cannula. SKIN: Warm and dry. No rash. She is not diaphoretic. HEENT: Pupils equal, round and reactive to light and accommodation. Conjunctivae are pink. No evidence of JVP. CARDIOVASCULAR: Irregularly irregular. There is no murmur or rub. CHEST: Clear, symmetrical, unlabored. ABDOMEN: Soft, nontender, nondistended. BACK: No CVA tenderness or sacral edema. EXTREMITIES: No clubbing, cyanosis, edema. PSYCHIATRIC: Appropriate affect, pleasant mood. DIAGNOSTICS: Lab values are as follows - Venous blood gas obtained on 06/11/2018: PH is 7.37, PCO2 is 45.5, bicarbonate is 42.5. Hematology obtained on 06/11/2018; WBC is 12.4, hemoglobin is 9.6, hematocrit is 27.6, platelet count is 250,000. Chemistry obtained on 06/11/2018; sodium is 137, potassium 4.1, chloride is 94, carbon dioxide 42, BUN 18, creatinine is 0.34, glucose 105, calcium is 9.1, magnesium is 2.1. IMPRESSION AND PLAN: 1. ACUTE ON CHRONIC DIASTOLIC CONGESTIVE HEART FAILURE. The patient was diuresed with IV Lasix x2. Overall appearance appears to be much improved. The patient is breathing much more comfortably. Will obtain PA and lateral chest x-ray. Will follow. 2. HYPERCAPNIA. This appears to be a chronic issue with the patient. 3. CHRONIC ATRIAL FIBRILLATION. The patient's rate is much better controlled overall. Continue home medications. 4. CHRONIC ANTICOAGULATION. Continue Eliquis. 5. ACUTE ON CHRONIC HYPOXEMIC HYPERCAPNIC RESPIRATORY FAILURE. The patient has now been transitioned to room air at times. Will continue to wean. 6. LEFT HIP PAIN. Will obtain CT imaging of the hip given the patient's ongoing pain. DISPOSITION: THE PATIENT IS A FULL CODE. Depending on the patient's symptomatology and diagnostic findings will reevaluate in the a.m. The patient is on the waiting list for transfer at [facility] at the family's request. TIME SPENT: On this follow up, including assessment and plan, physical examination, patient education, review of records is 25 minutes. DICTATING PHYSICIAN: DARSHANA DINH NP [id number] PHY#: [id number] ID: [id number] JOB#: [id number] ACCT: [id number] cc: >
[2018-06-12] MEDS: ACETAMINOPHEN 325 MG TABLET PO PRN ×2 (04:11→08:28)
[2018-06-12 05:16] LABS: BLOOD UREA NITROGEN 15 mg/dL (7-20); GLUCOSE 103 mg/dL (75-110)
[2018-06-12 05:36] LABS: ANION GAP 6 (5-19); CHLORIDE 91 mmol/L (98-107); SODIUM 136.7 mmol/L (137-145)
[2018-06-12] MEDS: DILTIAZEM HCL 240 MG CAPSULE.CR PO SCH ×2 (05:37→17:32)
[2018-06-12] MEDS: HEPARIN SOD (PORCINE) 5,000 UNIT/ML 1 ML SYRINGE SUBCUT SCH ×2 (05:40→14:27)
[2018-06-12 05:46] LABS: CARBON DIOXIDE 40 mmol/L (22-30)
[2018-06-12] MEDS: FUROSEMIDE 40 MG TABLET PO SCH (07:17)
[2018-06-12 07:21] LABS: CARBON DIOXIDE 42 mmol/L (22-30)
[2018-06-12] MEDS: POTASSIUM CHLORIDE 10 MEQ CAPSULE.ER PO SCH (09:23)
[2018-06-12] MEDS: APIXABAN 5 MG TABLET PO SCH ×2 (09:23→17:32)
[2018-06-12] MEDS: FLUTICASONE/SALMETEROL DISKUS 250-50 MCG/DOSE IH SCH ×2 (09:24→21:15)
[2018-06-12] MEDS ORDERED: FUROSEMIDE INJ/PF 40 MG/4 ML SDV IV SCH (16:34)
--- NOTE | 2018-06-12 16:52 | PDOC PROGRESS REPORT ---
Subjective Progress Note for:: 06/12/18 Subjective:: At the time of evaluation patient is wearing her BiPAP mask. She reports wearing at the majority of the day. She speaks in full sentences and while wearing the mass appears to be comfortable. It appears that she has taken the mask off multiple times throughout the day due to displeasure of wearing the mask. She reports chronic breathing troubles that started in February, and have intermittently gradually worsened. She reports being in and out of the hospital many times during the past 4 months. She is also been under significant psychosocial stressors in the past 2 years. She has had 2 sons during that time. She does admit that anxiety probably does play portion into her breathing difficulties. It seems that the family has continued to be fairly demanding towards nursing staff. Patient was very pleasant throughout my time of evaluation. She seems to be a relatively decent historian. Reason For Visit: FALL, HYPOXIA Physical Exam Vital Signs: Temp Pulse Resp BP Pulse Ox 97.4 F 70 20 118/70 93 06/12/18 08:26 06/12/18 14:00 06/12/18 14:52 06/12/18 08:26 06/12/18 08:26 Intake & Output 06/11/18 06/12/18 06/13/18 06:59 06:59 06:59 Intake Total 368 355 Output Total 401 Balance -33 355 Weight 82.8 kg 83.3 kg General appearance: PRESENT: no acute distress, cooperative Head exam: PRESENT: atraumatic, normocephalic Eye exam: PRESENT: conjunctiva pink, EOMI, PERRLA. ABSENT: scleral icterus Ear exam: PRESENT: normal external ear exam Mouth exam: PRESENT: moist, tongue midline Respiratory exam: PRESENT: crackles - Bilateral, other - No wheeze appreciated. Cardiovascular exam: PRESENT: RRR, +S1, +S2 Extremities exam: PRESENT: other - Trace bilateral upper and lower extremity edema. Neurological exam: PRESENT: alert, awake, oriented to person, oriented to place, oriented to time, oriented to situation, CN II-XII grossly intact. ABSENT: motor sensory deficit Psychiatric exam: PRESENT: anxious Results Laboratory Results: 06/11/18 06:08 06/12/18 04:05 06/11/18 06/12/18 06:08 04:05 Sodium 136.7 L Potassium 4.0 Chloride 91 L Carbon Dioxide 42 H* 40 H* Anion Gap 6 BUN 15 Creatinine 0.37 L Est GFR ( Amer) > 60 Est GFR (Non-Af Amer) > 60 Glucose 103 Calcium 9.0 Magnesium 2.0 Impressions: Head CT 06/09/18 08:02 IMPRESSION: No acute intracranial pathology. Soft tissue hematoma of the left scalp vertex. EVIDENCE OF ACUTE STROKE: NO. Hip X-Ray 06/09/18 08:02 IMPRESSION: INTACT BILATERAL HIP PROSTHESES. STABLE CHRONIC FINDINGS ABOVE. NO RADIOGRAPHIC EVIDENCE OF ACUTE INJURY. Chest X-Ray 06/11/18 00:00 IMPRESSION: Congestive failure with bilateral pleural effusions and possible interstitial edema. No real improvement. Pelvis CT 06/11/18 12:16 IMPRESSION: No acute pelvic fracture. Abdominal aortic aneurysm and left iliac aneurysm incompletely imaged. Assessment & Plan - Diagnosis (1) Pulmonary edema Is this a current diagnosis for this admission?: Yes (2) Fall Is this a current diagnosis for this admission?: Yes (3) Hypoxia Is this a current diagnosis for this admission?: Yes - Time Time Spent with patient: 25-34 minutes Medications reviewed and adjusted accordingly: Yes - Inpatient Certification Based on my medical assessment, after consideration of the patient's comorbidities, presenting symptoms, or acuity I expect that the services needed warrant INPATIENT care.: Yes I certify that my determination is in accordance with my understanding of Medicare's requirements for reasonable and necessary INPATIENT services [42 CFR 412.3e].: Yes - Plan Summary Plan Summary: 1. Acute on chronic diastolic congestive heart failure. Patient has received increased dose of Lasix in comparison to her home doses, however these doses appear to be insufficient at this time. Her creatinine is between 0.3 and 0.4, which is even lower than her baseline which is approximately 0.5. Bilateral lungs appear to have crackles at the bases. Ejection fraction on echo obtained during this admission was 60%. CT chest is ordered for tomorrow. Would like to increase the diuresis over the next 12-24 hours significantly in order to improve the patient's stability in breathing, so that she may go down for CT scan. Continue with the BiPAP and will work to wean down oxygen as possible. Patient denies using oxygen prior to February 2018. Since then has required nasal cannula at home between 1 and 3 L. She is a BiPAP at night. 2. Past diagnosis of chronic atrial fibrillation. Appears to be controlled on Cardizem at current dose. Continue telemetry. 3. Anemia. Hemoglobin appears to have trended down since September 2017. Stop the prophylactic heparin and continue with the Eliquis as scheduled at home. Guaiac stools. 4. Acute on chronic respiratory failure. Suggestive on ABGs. Likely worsened due to anemia and anxiety. 5. Falls. Unknown cause. Risk/reward of anticoagulation was discussed with the patient.
[2018-06-12] MEDS: FUROSEMIDE INJ/PF 40 MG/4 ML SDV IV SCH (21:18)
[2018-06-13 05:26] LABS: HEMATOCRIT 26.7 % (36.0-47.0); HEMOGLOBIN 8.4 g/dL (12.0-15.5); MEAN CORPUSCULAR HEMOGLOBIN 27.7 pg (27.0-33.4); MEAN CORPUSCULAR HGB CONC 31.5 g/dL (32.0-36.0); MEAN CORPUSCULAR VOLUME 88 fl (80-97); PLATELET COUNT 261 10^3/uL (150-450); RED BLOOD COUNT 3.03 10^6/uL (3.72-5.28); RED CELL DISTRIBUTION WIDTH 19.1 % (11.5-14.0)
[2018-06-13] MEDS: DILTIAZEM HCL 240 MG CAPSULE.CR PO SCH ×2 (05:36→17:19)
[2018-06-13] MEDS: FUROSEMIDE INJ/PF 40 MG/4 ML SDV IV SCH ×3 (05:38→21:50)
[2018-06-13 05:51] LABS: BLOOD UREA NITROGEN 13 mg/dL (7-20); CALCIUM 9.1 mg/dL (8.4-10.2); CHLORIDE 89 mmol/L (98-107); GLUCOSE 101 mg/dL (75-110); POTASSIUM 3.8 mmol/L (3.6-5.0); SODIUM 136.1 mmol/L (137-145)
[2018-06-13 06:25] LABS: ANION GAP 5 (5-19)
[2018-06-13 06:27] LABS: CARBON DIOXIDE 42 mmol/L (22-30)
[2018-06-13] MEDS: POTASSIUM CHLORIDE 10 MEQ CAPSULE.ER PO SCH (09:38)
[2018-06-13] MEDS: APIXABAN 5 MG TABLET PO SCH ×2 (09:39→17:20)
[2018-06-13] MEDS: FLUTICASONE/SALMETEROL DISKUS 250-50 MCG/DOSE IH SCH ×2 (09:39→21:50)
--- NOTE | 2018-06-13 11:52 | RADIOLOGY REPORT (SQ) ---
EXAM DESCRIPTION: CT CHEST WITHOUT COMPLETED DATE/TIME: 06/13/2018 10:51 am REASON FOR STUDY: SOB/Hypoxia COMPARISON: None. TECHNIQUE: CT scan performed of the chest without intravenous contrast. Images reviewed with lung, soft tissue and bone windows. Reconstructed coronal and sagittal MPR images reviewed. All images st ored on PACS. All CT scanners at this facility use dose modulation, iterative reconstruction, and/or weight based d osing when appropriate to reduce radiation dose to as low as reasonably achievable (ALARA). [facility]: Dose Right [facility]: CareDose [facility]: Dose Right [facility]: Teradose 4D [facility]: [employer] RADIATION DOSE: CT Rad equipment meets quality standard of care and radiation dose reduction techniq ues were employed. CTDIvol: 12.8 mGy. DLP: 460 mGy-cm. mGy. LIMITATIONS: No technical limitations. FINDINGS: LUNGS AND PLEURA: Moderate bilateral pleural effusions and associated dependent airspace d isease. 2.5 cm calcified nodule within area consolidation in the right lower lobe. No evidence of e mpyema. HILAR AND MEDIASTINAL STRUCTURES: No identified masses or abnormal nodes. No obvious aneurysm. HEART AND VASCULAR STRUCTURES: Dense mitral annular calcifications. UPPER ABDOMEN: No significant findings. Limited exam. THYROID AND OTHER SOFT TISSUES: No masses. No adenopathy. BONES: Nothing acute. HARDWARE: None in the chest. OTHER: No other significant findings. IMPRESSION: Congestive heart failure. Correlate with BNP. Probable calcified granuloma right lower lobe. Consider correlation with thoracentesis. TECHNICAL DOCUMENTATION: JOB ID: [id number] Quality ID # [id number]: Final reports with documentation of one or more dose reduction techniques (e.g., Au tomated exposure control, adjustment of the mA and/or kV according to patient size, use of iterative reconstruction technique) 2010 [employer]- All Rights Reserved Reading location - IP/workstation name: [email or web address]
--- NOTE | 2018-06-13 11:59 | PDOC PROGRESS REPORT ---
Subjective Progress Note for:: 06/13/18 Subjective:: Patient does report slight improvement in breathing over the last 12-24 hours. This seems to be related to increase in Lasix. Heart rate was previously controlled with Cardizem, however has been spending more time in the 110-120 range over the last 12 hours. Seems to correspond with shortness of breath. Utilizing BiPAP the majority of the day. Did tolerate nasal cannula for approximately 1 hour yesterday. Continues to talk in full sentences and have a good appetite. Reason For Visit: FALL, HYPOXIA Physical Exam Vital Signs: Temp Pulse Resp BP Pulse Ox 98.1 F 103 H 22 H 112/68 90 L 06/13/18 07:46 06/13/18 07:46 06/13/18 07:46 06/13/18 07:46 06/13/18 07:46 Intake & Output 06/12/18 06/13/18 06/14/18 06:59 06:59 06:59 Intake Total 355 518 Output Total 1500 Balance 355 -982 Weight 83.3 kg 81.9 kg General appearance: PRESENT: no acute distress, well-developed, well-nourished Head exam: PRESENT: atraumatic, normocephalic Eye exam: PRESENT: conjunctiva pink, EOMI, PERRLA. ABSENT: scleral icterus Ear exam: PRESENT: normal external ear exam Mouth exam: PRESENT: moist, tongue midline Respiratory exam: PRESENT: other - No appreciable wheeze. Prolonged expiratory phase. Bilateral crackles. Cardiovascular exam: PRESENT: irregular rhythm GI/Abdominal exam: PRESENT: normal bowel sounds, soft. ABSENT: distended, g uarding, mass, organolmegaly, rebound, tenderness Extremities exam: PRESENT: other - Trace bilateral lower extremity edema. Musculoskeletal exam: PRESENT: normal inspection Neurological exam: PRESENT: alert, awake, oriented to person, oriented to place, oriented to time, oriented to situation, CN II-XII grossly intact. ABSENT: motor sensory deficit Psychiatric exam: PRESENT: anxious Results Laboratory Results: 06/13/18 04:31 06/13/18 04:31 06/13/18 06/13/18 04:31 04:31 WBC 9.0 RBC 3.03 L Hgb 8.4 L Hct 26.7 L MCV 88 MCH 27.7 MCHC 31.5 L RDW 19.1 H Plt Count 261 Sodium 136.1 L Potassium 3.8 Chloride 89 L Carbon Dioxide 42 H* Anion Gap 5 BUN 13 Creatinine 0.42 L Est GFR ( Amer) > 60 Est GFR (Non-Af Amer) > 60 Glucose 101 Calcium 9.1 Magnesium 1.9 06/09/18 10:01 Catheterized Urine Urine Culture - Final Viridans Streptococcus Impressions: Head CT 06/09/18 08:02 IMPRESSION: No acute intracranial pathology. Soft tissue hematoma of the left scalp vertex. EVIDENCE OF ACUTE STROKE: NO. Hip X-Ray 06/09/18 08:02 IMPRESSION: INTACT BILATERAL HIP PROSTHESES. STABLE CHRONIC FINDINGS ABOVE. NO RADIOGRAPHIC EVIDENCE OF ACUTE INJURY. Chest X-Ray 06/11/18 00:00 IMPRESSION: Congestive failure with bilateral pleural effusions and possible interstitial edema. No real improvement. Pelvis CT 06/11/18 12:16 IMPRESSION: No acute pelvic fracture. Abdominal aortic aneurysm and left iliac aneurysm incompletely imaged. Assessment & Plan - Diagnosis (1) Pulmonary edema Is this a current diagnosis for this admission?: Yes (2) Fall Is this a current diagnosis for this admission?: Yes (3) Hypoxia Is this a current diagnosis for this admission?: Yes (4) Atrial fibrillation Is this a current diagnosis for this admission?: Yes (5) COPD (chronic obstructive pulmonary disease) Is this a current diagnosis for this admission?: Yes - Time Time Spent with patient: 25-34 minutes Smoking Cessation Education: over 10 minutes Medications reviewed and adjusted accordingly: Yes - Inpatient Certification Based on my medical assessment, after consideration of the patient's comorbidities, presenting symptoms, or acuity I expect that the services needed warrant INPATIENT care.: Yes I certify that my determination is in accordance with my understanding of Medicare's requirements for reasonable and necessary INPATIENT services [42 CFR 412.3e].: Yes - Plan Summary Plan Summary: 1. Fluid overload (possible diastolic heart failure not fully observed on echocardiogram.) Fluid in the lungs likely primarily related to atrial fibrillation and excessive intake, however may have a component of diastolic failure not fully observed on transthoracic echocardiogram. Follows with a gas leak tester in [place]. Echo on admission showed ejection fraction of 60%. 2. chronic atrial fibrillation. Diagnosed summer 2017. Previously appeared to be controlled on Cardizem CD at 240 mg every 12 hours. It does appear this morning her heart rate has spent more time above 120 in the previous days. Discussed with attending. Consider giving digoxin if pattern continues. Continue to observe for now. Continue telemetry. Continue on Eliquis. 3. Anemia. Hemoglobin appears to have trended down since September 2017 (apprx 14). Monitor closely. Likely contributing to shortness of breath. Stopped the prophylactic heparin. She has a history of bleeding while on heparin. Eliquis 5 mg twice daily. Guaiac stools. 4. Acute on chronic respiratory failure. Suggestive on ABGs. Likely worsened due to anemia and anxiety. Shortness of breath seems to be poly-factorial, and related to fluid overload, secondary to atrial fibrillation. Worsened by anemia and anxiety. Continue utilizing BiPAP as needed. Try to wean down to nasal cannula as tolerated. 5. COPD. Uses home oxygen 2-3 L via nasal cannula over the last 3-6 months. Currently intermittently smokes, but denies this. Past smoking history approximately 100-[address] scan of chest pending. 6. Falls. Unknown cause. Risk/reward of anticoagulation was discussed with the patient. Disposition: Family continues to desire transfer to [place]. They can be a lit tle demanding at times. Number symptoms have been made to explain the current situation. She was placed on the waiting list at [place] early in her admission. However, she continues to remain stable at this point.
[2018-06-13 14:16] LABS: ARTERIAL BLOOD BASE EXCESS 14.8 mmol/L; ARTERIAL BLOOD FIO2 30%; ARTERIAL BLOOD H2CO3 1.88 mmol/L (1.05-1.35); ARTERIAL BLOOD HCO3 41.1 mmol/L (20-24); ARTERIAL BLOOD O2 SATURATION 91.8 % (94-98); ARTERIAL BLOOD PCO2 62.5 mmHg (35-45); ARTERIAL BLOOD PH 7.44 (7.35-7.45); ARTERIAL BLOOD PO2 62.2 mmHg (80-100)
[2018-06-13] MEDS: DIPHENHYDRAMINE HCL 25 MG CAPSULE PO PRN ×2 (22:33)
[2018-06-14] MEDS ORDERED: METOPROLOL TARTRATE PF/INJ 5 MG/5 ML SDV IV ONE ×2 (01:40→07:00)
[2018-06-14] MEDS: DILTIAZEM HCL 240 MG CAPSULE.CR PO SCH (05:34)
[2018-06-14] MEDS: FUROSEMIDE INJ/PF 40 MG/4 ML SDV IV SCH ×3 (05:38→21:09)
--- NOTE | 2018-06-14 08:31 | PDOC PROGRESS REPORT ---
Subjective Progress Note for:: 06/14/18 Subjective:: 83-year-old female admitted with a fall and hypoxia. She was also tachycardic at the time of admission. Today the nurse called me to notify the patient's pulse oxes are in the 60s and noticeable change in the mental status and patient is in [id number] distress. I went to evaluate the patient by the family went updated patient is on BiPAP 40% with pulse ox is 97-90%. After increasing the oxygen requirements to 50% pulse ox improved to 96-98%. I put a question to the patient which she is at, she responded by saying she is in the [facility] and she is also able to give her date of . Patient denies any complaints and concerns. I requested for stat ABG chest x-ray stat labs started on Invanz 1 g IV daily Solu-Medrol 40 mg every 12 hours. Also placed a consult for Dr. Nur. I am going to order for the EKG. Reason For Visit: FALL, HYPOXIA Physical Exam Vital Signs: Temp Pulse Resp BP Pulse Ox 98.5 F 103 H 18 112/60 94 06/14/18 05:48 06/14/18 07:00 06/14/18 05:48 06/14/18 05:48 06/14/18 05:48 Intake & Output 06/13/18 06/14/18 06/15/18 06:59 06:59 06:59 Intake Total 518 885 Output Total 1500 2700 Balance -982 -1815 Weight 81.9 kg 81.7 kg Head exam: PRESENT: atraumatic Eye exam: PRESENT: PERRLA Mouth exam: PRESENT: moist Teeth exam: PRESENT: poor dentation Neck exam: ABSENT: carotid bruit, JVD, lymphadenopathy, thyromegaly Respiratory exam: PRESENT: crackles, decreased breath sounds, rhonchi Cardiovascular exam: PRESENT: irregular rhythm, systolic murmur, tachycardia GI/Abdominal exam: PRESENT: normal bowel sounds, soft. ABSENT: distended, guarding, mass, organolmegaly, rebound, tenderness Extremities exam: PRESENT: full ROM. ABSENT: calf tenderness, clubbing, pedal edema Neurological exam: PRESENT: alert, awake, oriented to person, oriented to place, oriented to time, oriented to situation, CN II-XII grossly intact. ABSENT: motor sensory deficit Psychiatric exam: PRESENT: appropriate affect, normal mood. ABSENT: homicidal ideation, suicidal ideation Results Laboratory Results: 06/13/18 04:31 06/13/18 04:31 06/13/18 13:30 Carbonic Acid 1.88 H HCO3/H2CO3 Ratio 21:1 ABG pH 7.44 ABG pCO2 62.5 H ABG pO2 62.2 L ABG HCO3 41.1 H ABG O2 Saturation 91.8 L ABG Base Excess 14.8 FiO2 30% 06/09/18 10:01 Catheterized Urine Urine Culture - Final Viridans Streptococcus Impressions: Head CT 06/09/18 08:02 IMPRESSION: No acute intracranial pathology. Soft tissue hematoma of the left scalp vertex. EVIDENCE OF ACUTE STROKE: NO. Hip X-Ray 06/09/18 08:02 IMPRESSION: INTACT BILATERAL HIP PROSTHESES. STABLE CHRONIC FINDINGS ABOVE. NO RADIOGRAPHIC EVIDENCE OF ACUTE INJURY. Chest X-Ray 06/11/18 00:00 IMPRESSION: Congestive failure with bilateral pleural effusions and possible interstitial edema. No real improvement. Pelvis CT 06/11/18 12:16 IMPRESSION: No acute pelvic fracture. Abdominal aortic aneurysm and left iliac aneurysm incompletely imaged. Chest CT 06/13/18 08:00 IMPRESSION: Congestive heart failure. Correlate with BNP. Probable calcified granuloma right lower lobe. Consider correlation with thoracentesis. Assessment & Plan - Diagnosis (1) COPD (chronic obstructive pulmonary disease) Is this a current diagnosis for this admission?: Yes Plan: 06/14/2018 patient pulse ox on 50% BiPAP is 96-98%. There is a concern this morning about a change in mental status less responsive pulse oxes are 60% on 100% BiPAP. Nurse director of home economics called me with the above findings immediately went to evaluate the patient. By the time he went there patient is on 40% BiPAP with pulse ox is 87-90%. I increased oxygen requirements to 50% the pulse ox improved to 96-98% patient able to respond very well appropriately. I requested for appropriate labs and investigations. A consult was also requested. (2) Atrial fibrillation Is this a current diagnosis for this admission?: Yes Plan: 06/14/2018-patient is on Cardizem 240 mg p.o. twice a day. And she is also receiving metoprolol IV as needed to control the heart rate at the time of examination his heart rate is around 100 and still in atrial fib and patient asymptomatic at the time of my examination. She is also on Eliquis plan is to continue the present management. (3) Pulmonary edema Is this a current diagnosis for this admission?: Yes Plan: 06/14/2018-patient chest x-ray shows bilateral pleural effusions and pulmonary congestion patient on Lasix 40 mg IV every 8 hours. She has echocardiogram was done on 06/09/2018 left ventricular ejection fraction is normal of 60% as per the residential installer Dr. Robertson unable to assess the diastolic function because of the chronic atrial fibrillation. Plan to check her BNP today. (4) Hypoxia Is this a current diagnosis for this admission?: Yes Plan: 06/14/2018 acute on chronic respiratory failure with hypoxia most likely X to chronic atrial fibrillation, congestive heart failure, anxiety, COPD. Patient is getting scheduled nebulizations and started on IV Solu-Medrol 40 mg every 12 hours. Requested for CPT. - Time Time Spent with patient: 25-34 minutes Smoking Cessation Education: over 10 minutes Medications reviewed and adjusted accordingly: Yes Anticipated discharge: SNF
[2018-06-14 08:53] LABS: ARTERIAL BLOOD BASE EXCESS 17.8 mmol/L; ARTERIAL BLOOD H2CO3 3.12 mmol/L (1.05-1.35); ARTERIAL BLOOD HCO3 48.1 mmol/L (20-24); ARTERIAL BLOOD PH 7.28 (7.35-7.45); ARTERIAL BLOOD PO2 64.5 mmHg (80-100); ARTERIAL BLOOD TOTAL CO2 51.3 mmol/L (21-25)
[2018-06-14 08:54] LABS: ABSOLUTE BASOPHILS # (AUTO) 0.1 10^3/uL (0.0-0.2); ABSOLUTE LYMPHOCYTES (AUTO) 0.7 10^3/uL (0.5-4.7); ABSOLUTE MONOCYTES (AUTO) 0.6 10^3/uL (0.1-1.4); ABSOLUTE NEUT (AUTO) 8.8 10^3/uL (1.7-8.2); BASOPHILS % (AUTO) 0.6 % (0-2); EOSINOPHILS % (AUTO) 0.1 % (0-6); HEMOGLOBIN 9.5 g/dL (12.0-15.5); LYMPHOCYTES % (AUTO) 7.2 % (13-45); MEAN CORPUSCULAR HEMOGLOBIN 27.5 pg (27.0-33.4); MEAN CORPUSCULAR HGB CONC 31.6 g/dL (32.0-36.0); MEAN CORPUSCULAR VOLUME 87 fl (80-97); MONOCYTES % (AUTO) 6.1 % (3-13); PLATELET COUNT 331 10^3/uL (150-450); RED BLOOD COUNT 3.45 10^6/uL (3.72-5.28); RED CELL DISTRIBUTION WIDTH 19.2 % (11.5-14.0); TOTAL CELLS COUNTED % (AUTO) 100 %; WHITE BLOOD COUNT 10.3 10^3/uL (4.0-10.5)
[2018-06-14 08:55] LABS: ARTERIAL BLOOD FIO2 40%
[2018-06-14 08:57] LABS: ARTERIAL BLOOD PCO2 103.8 mmHg (35-45)
[2018-06-14 09:11] LABS: ALANINE AMINOTRANSFERASE 52 U/L (9-52); ALBUMIN 3.3 g/dL (3.5-5.0); ALKALINE PHOSPHATASE 74 U/L (38-126); ASPARTATE AMINO TRANSFERASE 79 U/L (14-36); BILIRUBIN,DIRECT 0.8 mg/dL (0.0-0.4); BILIRUBIN,TOTAL 1.5 mg/dL (0.2-1.3); BLOOD UREA NITROGEN 22 mg/dL (7-20); CALCIUM 9.3 mg/dL (8.4-10.2); CHLORIDE 88 mmol/L (98-107); GLUCOSE 123 mg/dL (75-110); POTASSIUM 4.7 mmol/L (3.6-5.0); SODIUM 136.2 mmol/L (137-145); TOTAL PROTEIN 6.2 g/dL (6.3-8.2)
--- NOTE | 2018-06-14 09:17 | RADIOLOGY REPORT (SQ) ---
EXAM DESCRIPTION: CHEST SINGLE VIEW COMPLETED DATE/TIME: 06/14/2018 8:53 am REASON FOR STUDY: shortness of breath COMPARISON: 06/11/2018. FINDINGS: Single-view chest AP portable approximately 0843 hours. Worsening aeration compared to prior. Progressive findings include patchy areas of bilateral lower lobe and right upper lung field airspace disease. Small effusions. Central vascular congestion, as before. Stable cardiomediastinal silhouette with dilated calcified aorta and cardiomegaly. Osteopenia with marked bilateral shoulder DJD. TECHNICAL DOCUMENTATION: JOB ID: [id number] Reading location - IP/workstation name: [email or web address]
[2018-06-14 09:19] LABS: ANION GAP 4 (5-19)
[2018-06-14 09:20] LABS: CARBON DIOXIDE 44 mmol/L (22-30)
[2018-06-14] MEDS: METHYLPREDNISOLONE INJ 40 MG/1 ML SDV IV SCH ×2 (09:54→21:09)
[2018-06-14] MEDS: ERTAPENEM SODIUM 1 GM in NORMAL SALINE 50 ML IV SCH (09:54)
[2018-06-14] MEDS ORDERED: ERTAPENEM SODIUM INJ 1 GM VIAL IV SCH (10:00)
[2018-06-14] MEDS ORDERED: DILTIAZEM HCL/D5W 125 MG/125 ML RTUINJ IV PRN ×2 (10:06→10:26)
[2018-06-14] MEDS: FLUTICASONE/SALMETEROL DISKUS 250-50 MCG/DOSE IH SCH ×2 (11:13→21:50)
[2018-06-14] MEDS: APIXABAN 5 MG TABLET PO SCH ×2 (11:13→18:15)
[2018-06-14] MEDS: POTASSIUM CHLORIDE 10 MEQ CAPSULE.ER PO SCH (11:13)
[2018-06-14 12:50] LABS: ARTERIAL BLOOD BASE EXCESS 13.3 mmol/L; ARTERIAL BLOOD H2CO3 2.13 mmol/L (1.05-1.35); ARTERIAL BLOOD HCO3 40.8 mmol/L (20-24); ARTERIAL BLOOD O2 SATURATION 94.5 % (94-98); ARTERIAL BLOOD PH 7.38 (7.35-7.45); ARTERIAL BLOOD PO2 76.8 mmHg (80-100); ARTERIAL BLOOD TOTAL CO2 42.9 mmol/L (21-25)
[2018-06-14 12:53] LABS: ARTERIAL BLOOD FIO2 50%
[2018-06-14 12:54] LABS: ARTERIAL BLOOD PCO2 70.8 mmHg (35-45)
--- NOTE | 2018-06-14 14:38 | PDOC TRANSFER SUMMARY ---
General Admission Date/PCP: 06/09/18 12:34 ARNAUD MORGAN Transfer Date: 06/14/18 Accepting Facility: [facility] Resuscitation Status: Full Code - Transfer Diagnosis (1) COPD (chronic obstructive pulmonary disease) Is this a current diagnosis for this admission?: Yes Diagnosis Summary: 06/14/2018 patient pulse ox on 50% BiPAP is 96-98%. There is a concern this morning about a change in mental status less responsive pulse oxes are 60% on 100% BiPAP. Nurse objects conservator called me with the above findings immediately went to evaluate the patient. By the time he went there patient is on 40% BiPAP with pulse ox is 87-90%. I increased oxygen requirements to 50% the pulse ox improved to 96-98% patient able to respond very well appropriately. I requested for appropriate labs and investigations. A consult was also requested. 06/14/2018-as I mentioned above patient was hypoxic this morning she was replaced on BiPAP, pulmonary consult was requested, ABG was done initially ABG PCO2 is 103.8 I started the patient on antibiotics Invanz, steroids 40 mg IV twice daily BiPAP on 50% oxygen. repeat ABG after 2 hours shows PCO2 of 70.8. In the meantime patient was transferred to ICU, chest x-ray suggests increased airspace opacities bilaterally indicating pneumonia she was started on Invanz as mentioned above. cardiology consult was done for the A. fib with rapid regular rate which was chronic p.o. Cardizem is discontinued and started on Cardizem drip at 5 mg/min heart rate is 86 now. Initially patient has change in mental status with BiPAP and increasing oxygenation she is back to her baseline. As per the family requested I discussed the transfer issue with Dr. Clements at the [facility] she accepted the patient but unfortunately no beds are available today, at any time beds may open up either tonight or tomorrow then patient will be transferred. The meantime we will continue the BiPAP treatments frequent ABGs antibiotic days Cardizem drip. Patient is also on Lasix IV 3 times daily for congestive heart failure latest BNP is 2200. (2) Atrial fibrillation Is this a current diagnosis for this admission?: Yes Diagnosis Summary: 06/14/2018-patient is on Cardizem 240 mg p.o. twice a day. And she is also receiving metoprolol IV as needed to control the heart rate at the time of examination his heart rate is around 100 and still in atrial fib and patient asymptomatic at the time of my examination. She is also on Eliquis plan is to continue the present management. 06/14/2017 patient's heart rate this morning around 100-120s she is on Cardizem 240 mg p.o. twice a day as per the shipyard painting supervisor recommendation p.o. Cardizem is discontinued started on Cardizem drip 5 mg/min and the heart rate now is 86-88. Rate controlled. pt on Eliquis 5 mg p.o. twice daily for chronic atrial fibrillation. (3) Pulmonary edema Is this a current diagnosis for this admission?: Yes Diagnosis Summary: 06/14/2018-patient chest x-ray shows bilateral pleural effusions and pulmonary congestion patient on Lasix 40 mg IV every 8 hours. She has echocardiogram was done on 06/09/2018 left ventricular ejection fraction is normal of 60% as per the shipyard painting supervisor Dr. Robertson unable to assess the diastolic function because of the chronic atrial fibrillation. Plan to check her BNP today. 06/14/2018-patient has history of congestive heart failure and BNP today is 2200. CT scan shows bilateral pleural effusions and pulmonary congestion which is improving presently she is on IV Lasix 40 mg every 8 hours. Echocardiogram shows a left ventricular ejection fraction is normal 60% unable to assess the diastolic function because of the atrial fibrillation. Plan is to continue the present management. (4) Hypoxia Is this a current diagnosis for this admission?: Yes Diagnosis Summary: 06/14/2018 acute on chronic respiratory failure with hypoxia most likely sec to chronic atrial fibrillation, congestive heart failure, anxiety, COPD. Patient is getting scheduled nebulizations and started on IV Solu-Medrol 40 mg every 12 hours. Requested for CPT. 06/14/2018 patient has acute on chronic respiratory failure with hypoxia this morning the pulse ox is 60% on 2 L after placing the BiPAP pulse ox are improved to 96-98% on 50% oxygen. The hypoxia may be secondary to developing pneumonia, congestive heart failure which is chronic, chronic atrial fibrillation, underlying COPD. Plan is to continue the present management. Once the bed is available she go to [facility]. - Transfer Medications Home Medications: Albuterol Sulfate [Ventolin 0.083% Neb 2.5 mg/3 mL Ampul] 1 vial NEB Q12HP PRN 01/11/19 Apixaban [Eliquis 5 mg Tablet] 5 mg PO BID 06/09/18 Diltiazem HCl [Cartia Xt] 240 mg PO Q12 06/09/18 Diphenhydramine HCl [Benadryl 25 mg Capsule] 25 mg PO Q12HP PRN 06/09/18 Ergocalciferol (Vitamin D2) [Drisdol 50,000 unit (1.25MG) Capsule] 50,000 unit PO HOUSE@1000 06/09/18 Fluticasone/Salmeterol [Advair 250-50 Diskus 14 Dose/Diskus] 1 inh IH Q12 06/09/18 Furosemide [Lasix 40 mg Tablet] 40 mg PO QAM 06/09/18 Potassium Chloride [Klor-Con] 20 meq PO BID 06/09/18 Transfer Medications: Current Medications Acetaminophen (Tylenol 325 Mg Tablet) 650 mg PO Q4HP PRN PRN Reason: FEVER >101 Stop: 07/09/18 13:07 Last Admin: 06/12/18 08:28 Dose: 650 mg Documented by: Albuterol (Ventolin 0.083% Neb 2.5 Mg/3 Ml Ampul) 2.5 mg NEB [id number] PRN PRN Reason: SHORTNESS OF BREATH Stop: 07/09/18 15:30 Apixaban (Eliquis 5 Mg Tablet) 5 mg PO BID [facility] Stop: 07/09/18 17:59 Last Admin: 06/14/18 11:13 Dose: Not Given Documented by: Diphenhydramine HCl (Benadryl 25 Mg Capsule) 25 mg PO Q12HP PRN PRN Reason: WITH ALBUTEROL NEB Stop: 07/11/18 10:46 Last Admin: 06/13/18 22:33 Dose: 25 mg Documented by: Ergocalciferol (Drisdol 50,000 Unit (1.25mg) Capsule) 50,000 unit PO HOUSE@1000 [place] Stop: 07/11/18 09:59 Last Admin: 06/11/18 10:03 Dose: 50,000 unit Documented by: Furosemide (Lasix Inj/Pf 40 Mg/4 Ml Sdv) 40 mg IV Q8 [place] Stop: 07/12/18 16:33 Last Admin: 06/14/18 05:38 Dose: 40 mg Documented by: Ertapenem 1 gm/ Sodium (Chloride) 50 mls @ 100 mls/hr IV DAILY [place] Stop: 06/21/18 09:59 Last Admin: 06/14/18 09:54 Dose: 100 mls/hr, 100 mls/hr Documented by: Diltiazem HCl (Cardizem Rtu Inj 125 Mg-D5w 125 Ml Premix) 125 mg in 125 mls @ 0 mls/hr IV CONTINUOUS PRN; Protocol PRN Reason: THIS MED IS NOT "PRN" Stop: 07/14/18 10:25 Last Admin: 06/14/18 11:09 Dose: 5 mg/hr, 5 mls/hr Documented by: Methylprednisolone Sodium Succinate (Solu-Medrol Inj/Pf 40 Mg/1 Ml Sdv) 40 mg IV Q12 [place] Stop: 07/14/18 09:59 Last Admin: 06/14/18 09:54 Dose: 40 mg Documented by: Potassium Chloride (Klor-Con 10 Meq Capsule Er) 20 meq PO DAILY [place] Stop: 07/12/18 09:59 Last Admin: 06/14/18 11:13 Dose: Not Given Documented by: Fluticasone/Salmeterol (Advair 250-50 Diskus 14 Dose/Diskus) 1 inh IH Q12 [place] Stop: 07/09/18 21:59 Last Admin: 06/14/18 11:13 Dose: Not Given Documented by: Sodium Chloride (Saline Flush 2.5 Ml Monoject Prefil Syrin) 2.5 ml IV Q8 [facility] Stop: 07/09/18 13:59 Last Admin: 06/14/18 05:41 Dose: 2.5 ml Documented by: - Allergies Allergies/Adverse Reactions: Iodinated Contrast- Oral and IV Dye [IV Dye, Iodine Containing] Allergy (Severe, Verified 06/09/18 07:37) temporary paralysis of bilateral upper & lower extremities lidocaine [From Aspercreme (lidocaine)] Allergy (Intermediate, Verified 06/09/18 07:37) Generalized rash meloxicam [From Mobic] Allergy (Intermediate, Verified 06/09/18 07:37) uncontrollable "jerking" of corey upper & lower extremities Physical Exam Vital Signs: Temp Pulse Resp BP Pulse Ox 98.6 F 117 H 12 93/60 L 90 L 06/14/18 10:47 06/14/18 10:47 06/14/18 14:00 06/14/18 13:52 06/14/18 12:54 Intake & Output 06/13/18 06/14/18 06/15/18 06:59 06:59 06:59 Intake Total 518 885 Output Total 1500 2700 Balance -982 -1815 Weight 81.9 kg 81.7 kg General appearance: PRESENT: mild distress, other - Patient is more alert and oriented compared to this morning. Head exam: PRESENT: atraumatic Eye exam: PRESENT: PERRLA Mouth exam: PRESENT: moist, tongue midline Teeth exam: PRESENT: poor dentation Neck exam: ABSENT: carotid bruit, JVD, lymphadenopathy, thyromegaly Respiratory exam: PRESENT: crackles, decreased breath sounds, wheezes Cardiovascular exam: PRESENT: irregular rhythm, systolic murmur, tachycardia GI/Abdominal exam: PRESENT: normal bowel sounds, soft. ABSENT: distended, guarding, mass, organolmegaly, rebound, tenderness Extremities exam: PRESENT: full ROM. ABSENT: calf tenderness, clubbing, pedal edema Neurological exam: PRESENT: alert, awake, oriented to place Psychiatric exam: PRESENT: appropriate affect, normal mood. ABSENT: homicidal ideation, suicidal ideation Results Laboratory Results: 06/14/18 08:37 06/14/18 08:37 06/14/18 06/14/18 06/14/18 08:24 08:37 08:37 WBC 10.3 RBC 3.45 L Hgb 9.5 L Hct 30.0 L MCV 87 MCH 27.5 MCHC 31.6 L RDW 19.2 H Plt Count 331 Seg Neutrophils % 86.0 H Lymphocytes % 7.2 L Monocytes % 6.1 Eosinophils % 0.1 Basophils % 0.6 Absolute Neutrophils 8.8 H Absolute Lymphocytes 0.7 Absolute Monocytes 0.6 Absolute Eosinophils 0.0 Absolute Basophils 0.1 Carbonic Acid 3.12 H HCO3/H2CO3 Ratio 15:1 ABG pH 7.28 L ABG pCO2 103.8 H* ABG pO2 64.5 L ABG HCO3 48.1 H ABG O2 Saturation 88.0 L ABG Base Excess 17.8 FiO2 40% Sodium 136.2 L Potassium 4.7 Chloride 88 L Carbon Dioxide 44 H* Anion Gap 4 L BUN 22 H Creatinine 0.65 Est GFR ( Amer) > 60 Est GFR (Non-Af Amer) > 60 Glucose 123 H Calcium 9.3 Magnesium 2.0 Total Bilirubin 1.5 H AST 79 H ALT 52 Alkaline Phosphatase 74 Total Protein 6.2 L Albumin 3.3 L 06/14/18 12:27 WBC RBC Hgb Hct MCV MCH MCHC RDW Plt Count Seg Neutrophils % Lymphocytes % Monocytes % Eosinophils % Basophils % Absolute Neutrophils Absolute Lymphocytes Absolute Monocytes Absolute Eosinophils Absolute Basophils Carbonic Acid 2.13 H HCO3/H2CO3 Ratio 19:1 ABG pH 7.38 ABG pCO2 70.8 H* ABG pO2 76.8 L ABG HCO3 40.8 H ABG O2 Saturation 94.5 ABG Base Excess 13.3 FiO2 50% Sodium Potassium Chloride Carbon Dioxide Anion Gap BUN Creatinine Est GFR ( Amer) Est GFR (Non-Af Amer) Glucose Calcium Magnesium Total Bilirubin AST ALT Alkaline Phosphatase Total Protein Albumin 06/09/18 10:01 Catheterized Urine Urine Culture - Final Viridans Streptococcus 06/14/18 08:37 NT-Pro-B Natriuret Pep 2200 H Impressions: Head CT 06/09/18 08:02 IMPRESSION: No acute intracranial pathology. Soft tissue hematoma of the left scalp vertex. EVIDENCE OF ACUTE STROKE: NO. Hip X-Ray 06/09/18 08:02 IMPRESSION: INTACT BILATERAL HIP PROSTHESES. STABLE CHRONIC FINDINGS ABOVE. NO RADIOGRAPHIC EVIDENCE OF ACUTE INJURY. Pelvis CT 06/11/18 12:16 IMPRESSION: No acute pelvic fracture. Abdominal aortic aneurysm and left iliac aneurysm incompletely imaged. Chest CT 06/13/18 08:00 IMPRESSION: Congestive heart failure. Correlate with BNP. Probable calcified granuloma right lower lobe. Consider correlation with thoracentesis. Plan Discharge Plan: Plan is to transfer the patient to [facility]. Time Spent: Greater than 30 Minutes
[2018-06-14] MEDS: DIPHENHYDRAMINE HCL 25 MG CAPSULE PO PRN (22:50)
[2018-06-15] MEDS: FUROSEMIDE INJ/PF 40 MG/4 ML SDV IV SCH (05:07)
[2018-06-15 05:52] LABS: ARTERIAL BLOOD BASE EXCESS 22.6 mmol/L; ARTERIAL BLOOD H2CO3 1.29 mmol/L (1.05-1.35); ARTERIAL BLOOD HCO3 45.7 mmol/L (20-24); ARTERIAL BLOOD O2 SATURATION 90.6 % (94-98); ARTERIAL BLOOD PCO2 42.9 mmHg (35-45); ARTERIAL BLOOD PO2 48.2 mmHg (80-100)
[2018-06-15 05:55] LABS: ARTERIAL BLOOD FIO2 30%
[2018-06-15 05:56] LABS: ARTERIAL BLOOD PH 7.65 (7.35-7.45)
[2018-06-15] MEDS ORDERED: NORMAL SALINE 1000 ML 500 ML IV ONE (06:35)
[2018-06-15] MEDS: DILTIAZEM HCL/D5W 125 MG/125 ML RTUINJ IV PRN (09:32)
[2018-06-15] MEDS: ERTAPENEM SODIUM 1 GM in NORMAL SALINE 50 ML IV SCH (10:12)
[2018-06-15] MEDS: FLUTICASONE/SALMETEROL DISKUS 250-50 MCG/DOSE IH SCH ×2 (10:12→21:38)
[2018-06-15] MEDS: POTASSIUM CHLORIDE 10 MEQ CAPSULE.ER PO SCH (10:12)
[2018-06-15] MEDS: APIXABAN 5 MG TABLET PO SCH ×2 (10:12→17:30)
[2018-06-15] MEDS: METHYLPREDNISOLONE INJ 40 MG/1 ML SDV IV SCH ×2 (10:12→21:38)
--- NOTE | 2018-06-15 11:21 | PDOC PROGRESS REPORT ---
Subjective Progress Note for:: 06/15/18 Subjective:: 83-year-old female admitted with a fall and hypoxia. She was also tachycardic at the time of admission. Today the nurse called me to notify the patient's pulse oxes are in the 60s and noticeable change in the mental status and patient is in [id number] distress. I went to evaluate the patient by the family went updated patient is on BiPAP 40% with pulse ox is 97-90%. After increasing the oxygen requirements to 50% pulse ox improved to 96-98%. I put a question to the patient which she is at, she responded by [facility] and she is also able to give her date of . Patient denies any complaints and concerns. I requested for stat ABG chest x-ray stat labs started on Invanz 1 g IV daily Solu-Medrol 40 mg every 12 hours. Also placed a consult for Dr. Nur. I am going to order for the EKG. 06/15/2018-patient is more alert oriented she is not on BiPAP this morning during the examination. Pulse ox is 98% on 2 L. T-max is 99.7. No acute events in the last 24 hours. Patient is communicating very well denies any problems. Reason For Visit: FALL, HYPOXIA Physical Exam Vital Signs: Temp Pulse Resp BP Pulse Ox 99.5 F 109 H 16 107/74 95 06/15/18 10:00 06/15/18 10:00 06/15/18 10:00 06/15/18 10:00 06/15/18 10:00 Intake & Output 06/14/18 06/15/18 06/16/18 06:59 06:59 06:59 Intake Total 885 1304 Output Total 2700 1160 310 Balance -1815 144 -310 Weight 81.7 kg 77.6 kg General appearance: PRESENT: no acute distress Head exam: PRESENT: atraumatic Eye exam: PRESENT: PERRLA Mouth exam: PRESENT: moist Neck exam: ABSENT: carotid bruit, JVD, lymphadenopathy, thyromegaly Respiratory exam: PRESENT: crackles, decreased breath sounds Cardiovascular exam: PRESENT: irregular rhythm, systolic murmur, tachycardia GI/Abdominal exam: PRESENT: normal bowel sounds, soft. ABSENT: distended, guarding, mass, organolmegaly, rebound, tenderness Extremities exam: PRESENT: full ROM. ABSENT: calf tenderness, clubbing, pedal edema Neurological exam: PRESENT: alert, awake, oriented to person, oriented to place, oriented to time, oriented to situation, CN II-XII grossly intact. ABSENT: motor sensory deficit Psychiatric exam: PRESENT: appropriate affect, normal mood. ABSENT: homicidal ideation, suicidal ideation Results Laboratory Results: 06/14/18 08:37 06/14/18 08:37 06/14/18 06/15/18 12:27 05:25 Carbonic Acid 2.13 H 1.29 HCO3/H2CO3 Ratio 19:1 35:1 ABG pH 7.38 7.65 H* ABG pCO2 70.8 H* 42.9 ABG pO2 76.8 L 48.2 L ABG HCO3 40.8 H 45.7 H ABG O2 Saturation 94.5 90.6 L ABG Base Excess 13.3 22.6 FiO2 50% 30% 06/14/18 08:37 NT-Pro-B Natriuret Pep 2200 H Impressions: Head CT 06/09/18 08:02 IMPRESSION: No acute intracranial pathology. Soft tissue hematoma of the left scalp vertex. EVIDENCE OF ACUTE STROKE: NO. Hip X-Ray 06/09/18 08:02 IMPRESSION: INTACT BILATERAL HIP PROSTHESES. STABLE CHRONIC FINDINGS ABOVE. NO RADIOGRAPHIC EVIDENCE OF ACUTE INJURY. Pelvis CT 06/11/18 12:16 IMPRESSION: No acute pelvic fracture. Abdominal aortic aneurysm and left iliac aneurysm incompletely imaged. Chest CT 06/13/18 08:00 IMPRESSION: Congestive heart failure. Correlate with BNP. Probable calcified granuloma right lower lobe. Consider correlation with thoracentesis. Assessment & Plan - Diagnosis (1) COPD (chronic obstructive pulmonary disease) Is this a current diagnosis for this admission?: Yes Plan: 06/14/2018 patient pulse ox on 50% BiPAP is 96-98%. There is a concern this morning about a change in mental status less responsive pulse oxes are 60% on 100% BiPAP. Nurse cook mayonnaise called me with the above findings immediately went to evaluate the patient. By the time he went there patient is on 40% BiPAP with pulse ox is 87-90%. I increased oxygen requirements to 50% the pulse ox improved to 96-98% patient able to respond very well appropriately. I requested for appropriate labs and investigations. A consult was also requested. 1/17/ 2019-patient is on nasal cannula 2 L pulse ox is 98% this morning she did used BiPAP last night but this morning she is feeling much much better. Patient is alert and oriented communicating very well. The sputum cultures came back positive for gram-negative rods. Patient is on Invanz right now. Plan is to continue the IV Solu-Medrol, scheduled nebulizations, as needed BiPAP, and IV antibiotic therapy. CPT is also requested. Follow-up chest x-ray today was requested. Yesterday's chest x-ray shows increased aeration on both sides indicating possible underlying infectious process. Patient is presently on IV steroids 40 mg every 12 hours, scheduled nebulizations, CPT and on Invanz. Dr. Nur also following the patient. (2) Atrial fibrillation Qualifiers: Atrial fibrillation type: chronic Qualified Code(s): I48.2 - Chronic atrial fibrillation Is this a current diagnosis for this admission?: Yes Plan: 06/14/2018-patient is on Cardizem 240 mg p.o. twice a day. And she is also receiving metoprolol IV as needed to control the heart rate at the time of examination his heart rate is around 100 and still in atrial fib and patient asymptomatic at the time of my examination. She is also on Eliquis plan is to continue the present management. 2018 patient is on Cardizem drip 5 mg/min. Heart rate is 94. Patient is asymptomatic. Blood pressure is 105/62. [facility] Nurse Practitioner is on board. Plan is to continue the Cardizem drip today. Patient denies any chest pains. As I mentioned before she has echocardiogram early this month left ventricular fun ction is 60%. Unable to assess the diastolic dysfunction because of the atrial fibrillation. (3) Pulmonary edema Is this a current diagnosis for this admission?: Yes Plan: 06/14/2018-patient chest x-ray shows bilateral pleural effusions and pulmonary congestion patient on Lasix 40 mg IV every 8 hours. She has echocardiogram was done on 06/09/2018 left ventricular ejection fraction is normal of 60% as per the embroidery assistant Dr. Robertson unable to assess the diastolic function because of the chronic atrial fibrillation. Plan to check her BNP today. 06/15/2018 left ventricular ejection fraction is 60%. Unable to assess the d iastolic function because of the chronic atrial fibrillation. Latest BNP is 2200. Repeat BNP was requested today. Patient is not in fluid overload. Is on IV Lasix 40 mg 3 times a day. Positive fluid balance of 144 mL in the last 24 hours. Be placed on fluid restriction 1.5 L/day. (4) Hypoxia Is this a current diagnosis for this admission?: Yes Plan: 06/14/2018 acute on chronic respiratory failure with hypoxia most likely X to chronic atrial fibrillation, congestive heart failure, anxiety, COPD. Patient is getting scheduled nebulizations and started on IV Solu-Medrol 40 mg every 12 hours. Requested for CPT. 06/15/2018-hypoxia is resolving pulse ox on 2 L is 98% today. Yesterday's hypoxic episode most likely secondary to chronic atrial fibrillation, underlying congestive heart failure, possible infectious process in the lungs. She still on a as needed BiPAP. (5) Pneumonia Qualifiers: Laterality: bilateral Is this a current diagnosis for this admission?: Yes Plan: 06/15/2018 sputum cultures are showing gram-negative rods. Chest x-ray done yesterday indicating worsening patchy areas in both lower lung borja on the right upper lung. Probably patient has a hospital acquired pneumonia. And is on Invanz right now. - Time Time Spent with patient: 25-34 minutes Smoking Cessation Education: over 10 minutes Medications reviewed and adjusted accordingly: Yes Anticipated discharge: Home
[2018-06-15 11:56] LABS: ABSOLUTE LYMPHOCYTES (AUTO) 0.6 10^3/uL (0.5-4.7); ABSOLUTE MONOCYTES (AUTO) 0.5 10^3/uL (0.1-1.4); ABSOLUTE NEUT (AUTO) 9.5 10^3/uL (1.7-8.2); BASOPHILS % (AUTO) 0.4 % (0-2); HEMATOCRIT 28.6 % (36.0-47.0); LYMPHOCYTES % (AUTO) 5.6 % (13-45); MEAN CORPUSCULAR HEMOGLOBIN 27.6 pg (27.0-33.4); MEAN CORPUSCULAR HGB CONC 31.5 g/dL (32.0-36.0); MEAN CORPUSCULAR VOLUME 88 fl (80-97); MONOCYTES % (AUTO) 4.5 % (3-13); PLATELET COUNT 356 10^3/uL (150-450); RED BLOOD COUNT 3.27 10^6/uL (3.72-5.28); RED CELL DISTRIBUTION WIDTH 19.6 % (11.5-14.0); SEGMENTED NEUTROPHILS % (AUTO) 89.5 % (42-78); TOTAL CELLS COUNTED % (AUTO) 100 %; WHITE BLOOD COUNT 10.7 10^3/uL (4.0-10.5)
[2018-06-15 12:07] LABS: ALANINE AMINOTRANSFERASE 52 U/L (9-52); ALBUMIN 3.2 g/dL (3.5-5.0); ALKALINE PHOSPHATASE 74 U/L (38-126); ASPARTATE AMINO TRANSFERASE 63 U/L (14-36); BILIRUBIN,DIRECT 0.4 mg/dL (0.0-0.4); BILIRUBIN,TOTAL 0.7 mg/dL (0.2-1.3); BLOOD UREA NITROGEN 25 mg/dL (7-20); CHLORIDE 86 mmol/L (98-107); GLUCOSE 185 mg/dL (75-110); POTASSIUM 3.4 mmol/L (3.6-5.0); SODIUM 135.1 mmol/L (137-145); TOTAL PROTEIN 5.8 g/dL (6.3-8.2)
[2018-06-15 12:17] LABS: ANION GAP 5 (5-19)
[2018-06-15 12:19] LABS: ARTERIAL BLOOD BASE EXCESS 15.7 mmol/L; ARTERIAL BLOOD HCO3 43.4 mmol/L (20-24); ARTERIAL BLOOD O2 SATURATION 91.9 % (94-98); ARTERIAL BLOOD PH 7.37 (7.35-7.45); ARTERIAL BLOOD PO2 67.2 mmHg (80-100); ARTERIAL BLOOD TOTAL CO2 45.8 mmol/L (21-25)
[2018-06-15 12:19] LABS: CARBON DIOXIDE 44 mmol/L (22-30)
[2018-06-15 12:20] LABS: ARTERIAL BLOOD FIO2 4L
[2018-06-15 12:21] LABS: ARTERIAL BLOOD PCO2 76.5 mmHg (35-45)
--- NOTE | 2018-06-15 12:29 | RADIOLOGY REPORT (SQ) ---
EXAM DESCRIPTION: CHEST SINGLE VIEW COMPLETED DATE/TIME: 06/15/2018 11:52 am REASON FOR STUDY: pneumonia COMPARISON: 06/14/2018. EXAM PARAMETERS: NUMBER OF VIEWS: One view. TECHNIQUE: Single frontal radiographic view of the chest acquired. RADIATION DOSE: NA LIMITATIONS: None. FINDINGS: LUNGS AND PLEURA: Improved aeration in the right upper lobe. Persistent basilar densities with pleural effusions. MEDIASTINUM AND HILAR STRUCTURES: No masses. Contour normal. HEART AND VASCULAR STRUCTURES: Cardiomegaly. Vascular congestion. BONES: No acute findings. Chronic changes in the spine and shoulders. Old rib fractures. HARDWARE: None in the chest. OTHER: No other significant finding. IMPRESSION: IMPROVED AERATION IN THE RIGHT UPPER LOBE WITH IMPROVEMENT IN THE PREVIOUSLY SEEN AIRSPA CE DISEASE. CARDIOMEGALY WITH VASCULAR CONGESTION AND PLEURAL EFFUSIONS UNCHANGED. TECHNICAL DOCUMENTATION: JOB ID: [id number] [employer]- All Rights Reserved Reading location - IP/workstation name: [email or web address]
[2018-06-15 15:05] LABS: ARTERIAL BLOOD BASE EXCESS 17.6 mmol/L; ARTERIAL BLOOD FIO2 30%; ARTERIAL BLOOD H2CO3 2.08 mmol/L (1.05-1.35); ARTERIAL BLOOD HCO3 44.4 mmol/L (20-24); ARTERIAL BLOOD O2 SATURATION 90.4 % (94-98); ARTERIAL BLOOD PH 7.43 (7.35-7.45); ARTERIAL BLOOD TOTAL CO2 46.5 mmol/L (21-25)
[2018-06-16 05:42] LABS: ARTERIAL BLOOD BASE EXCESS 16.8 mmol/L; ARTERIAL BLOOD H2CO3 2.18 mmol/L (1.05-1.35); ARTERIAL BLOOD O2 SATURATION 96.2 % (94-98); ARTERIAL BLOOD PO2 87.6 mmHg (80-100); ARTERIAL BLOOD TOTAL CO2 46.2 mmol/L (21-25)
[2018-06-16 06:12] LABS: ARTERIAL BLOOD FIO2 4L
[2018-06-16 06:13] LABS: ARTERIAL BLOOD PCO2 72.5 mmHg (35-45)
[2018-06-16] MEDS: DILTIAZEM HCL/D5W 125 MG/125 ML RTUINJ IV PRN (06:23)
--- NOTE | 2018-06-16 08:53 | PDOC PROGRESS REPORT ---
Subjective Progress Note for:: 06/16/18 Subjective:: 83-year-old female admitted with a fall and hypoxia. She was also tachycardic at the time of admission. Today the nurse called me to notify the patient's pulse oxes are in the 60s and noticeable change in the mental status and patient is in zikc-or-kwmicdju distress. I went to evaluate the patient by the family went updated patient is on BiPAP 40% with pulse ox is 97-90%. After increasing the oxygen requirements to 50% pulse ox improved to 96-98%. I put a question to the patient which she is at, she responded by saying she is in the [facility] and she is also able to give her date of . Patient denies any complaints and concerns. I requested for stat ABG chest x-ray stat labs started on Invanz 1 g IV daily Solu-Medrol 40 mg every 12 hours. Also placed a consult for Dr. Nur. I am going to order for the EKG. 06/15/2018-patient is more alert oriented she is not on BiPAP this morning during the examination. Pulse ox is 98% on 2 L. T-max is 99.7. No acute events in the last 24 hours. Patient is communicating very well denies any problems. 06/16/2018-no acute events in the last 24 hours. Patient is afebrile. T-max is 98.4. Pulse ox is 94% on 4 L. This was done on BiPAP. In the ABG today PCO2 still elevated in the 70s. Pulmonary is on board. No complaints from the patient and family is okay with the management so far. Reason For Visit: FALL, HYPOXIA Physical Exam Vital Signs: Temp Pulse Resp BP Pulse Ox 97.9 F 75 16 116/73 92 06/16/18 08:00 06/16/18 08:00 06/16/18 08:00 06/16/18 08:00 06/16/18 08:00 Intake & Output 06/15/18 06/16/18 06/17/18 06:59 06:59 06:59 Intake Total 1304 365 Output Total 1160 1260 75 Balance 144 -895 -75 Weight 77.6 kg 76.4 kg General appearance: PRESENT: mild distress, other - Patient is sleeping comfortably on BiPAP. Head exam: PRESENT: atraumatic Eye exam: PRESENT: PERRLA Mouth exam: PRESENT: moist Neck exam: ABSENT: carotid bruit, JVD, lymphadenopathy, thyromegaly Respiratory exam: PRESENT: crackles, decreased breath sounds GI/Abdominal exam: PRESENT: normal bowel sounds, soft. ABSENT: distended, guarding, mass, organolmegaly, rebound, tenderness Extremities exam: PRESENT: full ROM. ABSENT: calf tenderness, clubbing, pedal edema Neurological exam: PRESENT: alert, awake, oriented to person, oriented to place, oriented to time, oriented to situation, CN II-XII grossly intact. ABSENT: motor sensory deficit Psychiatric exam: PRESENT: appropriate affect, normal mood. ABSENT: homicidal ideation, suicidal ideation Results Laboratory Results: 06/15/18 11:43 06/15/18 11:43 06/15/18 06/15/18 06/15/18 11:43 11:43 12:13 WBC 10.7 H RBC 3.27 L Hgb 9.0 L Hct 28.6 L MCV 88 MCH 27.6 MCHC 31.5 L RDW 19.6 H Plt Count 356 Seg Neutrophils % 89.5 H Lymphocytes % 5.6 L Monocytes % 4.5 Eosinophils % 0.0 Basophils % 0.4 Absolute Neutrophils 9.5 H Absolute Lymphocytes 0.6 Absolute Monocytes 0.5 Absolute Eosinophils 0.0 Absolute Basophils 0.0 Carbonic Acid 2.30 H HCO3/H2CO3 Ratio 18:1 ABG pH 7.37 ABG pCO2 76.5 H* ABG pO2 67.2 L ABG HCO3 43.4 H ABG O2 Saturation 91.9 L ABG Base Excess 15.7 FiO2 4L Sodium 135.1 L Potassium 3.4 L Chloride 86 L Carbon Dioxide 44 H* Anion Gap 5 BUN 25 H Creatinine 0.67 Est GFR ( Amer) > 60 Est GFR (Non-Af Amer) > 60 Glucose 185 H Calcium 9.0 Magnesium 1.8 Total Bilirubin 0.7 AST 63 H ALT 52 Alkaline Phosphatase 74 Total Protein 5.8 L Albumin 3.2 L 06/15/18 06/16/18 14:50 05:24 WBC RBC Hgb Hct MCV MCH MCHC RDW Plt Count Seg Neutrophils % Lymphocytes % Monocytes % Eosinophils % Basophils % Absolute Neutrophils Absolute Lymphocytes Absolute Monocytes Absolute Eosinophils Absolute Basophils Carbonic Acid 2.08 H 2.18 H HCO3/H2CO3 Ratio 21:1 20:1 ABG pH 7.43 7.40 ABG pCO2 69.0 H 72.5 H* ABG pO2 60.0 L 87.6 ABG HCO3 44.4 H 44.0 H ABG O2 Saturation 90.4 L 96.2 ABG Base Excess 17.6 16.8 FiO2 30% 4L Sodium Potassium Chloride Carbon Dioxide Anion Gap BUN Creatinine Est GFR ( Amer) Est GFR (Non-Af Amer) Glucose Calcium Magnesium Total Bilirubin AST ALT Alkaline Phosphatase Total Protein Albumin 06/10/18 10:45 Blood Blood Culture - Final NO GROWTH IN 5 DAYS 06/10/18 11:20 Blood Blood Culture - Final NO GROWTH IN 5 DAYS 06/14/18 06/15/18 08:37 11:43 NT-Pro-B Natriuret Pep 2200 H 1570 H Impressions: Head CT 06/09/18 08:02 IMPRESSION: No acute intracranial pathology. Soft tissue hematoma of the left scalp vertex. EVIDENCE OF ACUTE STROKE: NO. Hip X-Ray 06/09/18 08:02 IMPRESSION: INTACT BILATERAL HIP PROSTHESES. STABLE CHRONIC FINDINGS ABOVE. NO RADIOGRAPHIC EVIDENCE OF ACUTE INJURY. Pelvis CT 06/11/18 12:16 IMPRESSION: No acute pelvic fracture. Abdominal aortic aneurysm and left iliac aneurysm incompletely imaged. Chest CT 06/13/18 08:00 IMPRESSION: Congestive heart failure. Correlate with BNP. Probable calcified granuloma right lower lobe. Consider correlation with thoracentesis. Assessment & Plan - Diagnosis (1) COPD (chronic obstructive pulmonary disease) Is this a current diagnosis for this admission?: Yes Plan: 06/14/2018 patient pulse ox on 50% BiPAP is 96-98%. There is a concern this morning about a change in mental status less responsive pulse oxes are 60% on 100% BiPAP. Nurse semiconductor processing group leader called me with the above findings immediately went to evaluate the patient. By the time he went there patient is on 40% BiPAP with pulse ox is 87-90%. I increased oxygen requirements to 50% the pulse ox improved to 96-98% patient able to respond very well appropriately. I requested for appropriate labs and investigations. A consult was also requested. 2018-patient is on nasal cannula 2 L pulse ox is 98% this morning she did used BiPAP last night but this morning she is feeling much much better. Patient is alert and oriented communicating very well. The sputum cultures came back positive for gram-negative rods. Patient is on Invanz right now. Plan is to continue the IV Solu-Medrol, scheduled nebulizations, as needed BiPAP, and IV antibiotic therapy. CPT is also requested. Follow-up chest x-ray today was requested. Yesterday's chest x-ray shows increased aeration on both sides indicating possible underlying infectious process. Patient is presently on IV steroids 40 mg every 12 hours, scheduled nebulizations, CPT and on Invanz. Dr. Nur also following the patient. 06/16/2018 pulse ox is 94% on 4 L. Patient is on BiPAP. The sputum cultures shows H influenza. Patient is on Invanz. Plan is to continue the present antibiotic therapy. Patient is on IV Solu-Medrol 40 mg every 12 hours she is getting chest physical therapy scheduled nebulizations. We are doing daily chest x-rays today report is pending. ABG done on 4 L BiPAP today shows pH of 7.4 PCO2 72.5 po2 87.0 oxygen saturation is 96%. Plan is to continue the present management. (2) Atrial fibrillation Qualifiers: Atrial fibrillation type: chronic Qualified Code(s): I48.2 - Chronic atrial fibrillation Is this a current diagnosis for this admission?: Yes Plan: 06/14/2018-patient is on Cardizem 240 mg p.o. twice a day. And she is also receiving metoprolol IV as needed to control the heart rate at the time of examination his heart rate is around 100 and still in atrial fib and patient asymptomatic at the time of my examination. She is also on Eliquis plan is to continue the present management. 2018 patient is on Cardizem drip 5 mg/min. Heart rate is 94. Patient is asymptomatic. Blood pressure is 105/62. Hospice Case Manager is on board. Plan is to continue the Cardizem drip today. Patient denies any chest pains. As I mentioned before she has echocardiogram early this month left ventricular function is 60%. Unable to assess the diastolic dysfunction because of the atrial fibrillation. 06/16/2018-patient is presently on Cardizem drip 5 mg/min heart rate is 94. Blood pressure is 129/88. Patient is asymptomatic. Echocardiogram was reviewed from 60%. Unable to assess the diastolic function. Plan is to continue the Cardizem drip today. We may change to p.o. Cardizem if the heart rate is controlled. (3) Pulmonary edema Is this a current diagnosis for this admission?: Yes Plan: 06/14/2018-patient chest x-ray shows bilateral pleural effusions and pulmonary congestion patient on Lasix 40 mg IV every 8 hours. She has echocardiogram was done on 06/09/2018 left ventricular ejection fraction is normal of 60% as per the electronic game developer Dr. Robertson unable to assess the diastolic function because of the chronic atrial fibrillation. Plan to check her BNP today. 06/15/2018 left ventricular ejection fraction is 60%. Unable to assess the diastolic function because of the chronic atrial fibrillation. Latest BNP is 2200. Repeat BNP was requested today. Patient is not in fluid overload. Is on IV Lasix 40 mg 3 times a day. Positive fluid balance of 144 mL in the last 24 hours. Be placed on fluid restriction 1.5 L/day. 06/16/2018-recent echocardiogram shows ejection fraction of 60% unable to assess the diastolic dysfunction because of the atrial fibrillation. Latest BNP is 1570. Came down from 2200. Patient has negative fluid balance of 900 mL in the last 24 hours. Patient is presently on Lasix 40 mg IV every 8 hours. (4) Hypoxia Is this a current diagnosis for this admission?: Yes Plan: 06/14/2018 acute on chronic respiratory failure with hypoxia most likely X to chronic atrial fibrillation, congestive heart failure, anxiety, COPD. Patient is getting scheduled nebulizations and started on IV Solu-Medrol 40 mg every 12 hours. Requested for CPT. 06/15/2018-hypoxia is resolving pulse ox on 2 L is 98% today. Yesterday's hypoxic episode most likely secondary to chronic atrial fibrillation, underlying congestive heart failure, possible infectious process in the lungs. She still on a as needed BiPAP. 06/16/2018 pulse ox is 94% on 4 L today she is still on BiPAP. Hypoxia probably secondary to chronic atrial fibrillation, chronic congestive heart failure, hospital-acquired pneumonia. Plan is to continue the present management. She is on BiPAP she is also on Invanz. (5) Pneumonia Qualifiers: Laterality: bilateral Is this a current diagnosis for this admission?: Yes Plan: 06/15/2018 sputum cultures are showing gram-negative rods. Chest x-ray done yesterday indicating worsening patchy areas in both lower lung borja on the right upper lung. Probably patient has a hospital acquired pneumonia. And is on Invanz right now. 06/16/2017 sputum culture showing Haemophilus influenza. Presently she is on Invanz. Discussed the antibiotic coverage at the pharmacy and plan is to continue Invanz. - Time Time Spent with patient: 25-34 minutes Medications reviewed and adjusted accordingly: Yes Anticipated discharge: Home
[2018-06-16 09:07] LABS: ABSOLUTE LYMPHOCYTES (AUTO) 0.6 10^3/uL (0.5-4.7); ABSOLUTE MONOCYTES (AUTO) 0.3 10^3/uL (0.1-1.4); ABSOLUTE NEUT (AUTO) 9.3 10^3/uL (1.7-8.2); BASOPHILS % (AUTO) 0.1 % (0-2); HEMOGLOBIN 9.1 g/dL (12.0-15.5); LYMPHOCYTES % (AUTO) 6.3 % (13-45); MEAN CORPUSCULAR HEMOGLOBIN 27.5 pg (27.0-33.4); MEAN CORPUSCULAR HGB CONC 31.5 g/dL (32.0-36.0); MEAN CORPUSCULAR VOLUME 87 fl (80-97); PLATELET COUNT 350 10^3/uL (150-450); RED BLOOD COUNT 3.32 10^6/uL (3.72-5.28); RED CELL DISTRIBUTION WIDTH 18.9 % (11.5-14.0); SEGMENTED NEUTROPHILS % (AUTO) 90.6 % (42-78); TOTAL CELLS COUNTED % (AUTO) 100 %; WHITE BLOOD COUNT 10.2 10^3/uL (4.0-10.5)
--- NOTE | 2018-06-16 09:14 | RADIOLOGY REPORT (SQ) ---
EXAM DESCRIPTION: CHEST SINGLE VIEW COMPLETED DATE/TIME: 06/16/2018 8:48 am REASON FOR STUDY: copd/pneumonia COMPARISON: AP chest 06/15/2018, 06/14/2018, 06/11/2018 EXAM PARAMETERS: NUMBER OF VIEWS: One view. TECHNIQUE: Single frontal radiographic view of the chest acquired. RADIATION DOSE: NA LIMITATIONS: None. FINDINGS: LUNGS AND PLEURA: Persistent bibasilar consolidation atelectasis versus pneumonia. Trace pleural effusions. Persistent pulmonary vascular prominence. No pneumothorax MEDIASTINUM AND HILAR STRUCTURES: No masses. Contour normal. HEART AND VASCULAR STRUCTURES: Mild cardiomegaly BONES: Advanced arthritis both shoulders, old left lateral rib fractures HARDWARE: None in the chest. OTHER: No other significant finding. IMPRESSION: Persistent bibasilar airspace disease, atelectasis versus pneumonia. Trace pleural flui d bilaterally. These findings are similar compared to previous study 06/15/2018. TECHNICAL DOCUMENTATION: JOB ID: [id number] [employer]- All Rights Reserved Reading location - IP/workstation name: [email or web address]
[2018-06-16 09:31] LABS: ALANINE AMINOTRANSFERASE 68 U/L (9-52); ALBUMIN 3.3 g/dL (3.5-5.0); ALKALINE PHOSPHATASE 67 U/L (38-126); ASPARTATE AMINO TRANSFERASE 77 U/L (14-36); BILIRUBIN,DIRECT 0.5 mg/dL (0.0-0.4); BILIRUBIN,TOTAL 0.7 mg/dL (0.2-1.3); BLOOD UREA NITROGEN 24 mg/dL (7-20); CALCIUM 9.2 mg/dL (8.4-10.2); CHLORIDE 86 mmol/L (98-107); GLUCOSE 140 mg/dL (75-110); POTASSIUM 3.7 mmol/L (3.6-5.0); SODIUM 133.8 mmol/L (137-145); TOTAL PROTEIN 6.1 g/dL (6.3-8.2)
[2018-06-16] MEDS: POTASSIUM CHLORIDE 10 MEQ CAPSULE.ER PO SCH (09:36)
[2018-06-16] MEDS: FLUTICASONE/SALMETEROL DISKUS 250-50 MCG/DOSE IH SCH ×2 (09:36→21:16)
[2018-06-16] MEDS: ERTAPENEM SODIUM 1 GM in NORMAL SALINE 50 ML IV SCH (09:37)
[2018-06-16] MEDS: APIXABAN 5 MG TABLET PO SCH ×2 (09:37→18:19)
[2018-06-16] MEDS: METHYLPREDNISOLONE INJ 40 MG/1 ML SDV IV SCH ×2 (09:40→21:16)
[2018-06-16 09:42] LABS: ANION GAP 6 (5-19)
[2018-06-16 09:44] LABS: CARBON DIOXIDE 42 mmol/L (22-30)
[2018-06-17 04:08] LABS: HEMATOCRIT 27.1 % (36.0-47.0); HEMOGLOBIN 8.7 g/dL (12.0-15.5); MEAN CORPUSCULAR HEMOGLOBIN 27.6 pg (27.0-33.4); MEAN CORPUSCULAR HGB CONC 31.9 g/dL (32.0-36.0); MEAN CORPUSCULAR VOLUME 86 fl (80-97); PLATELET COUNT 331 10^3/uL (150-450); RED BLOOD COUNT 3.14 10^6/uL (3.72-5.28); RED CELL DISTRIBUTION WIDTH 19.1 % (11.5-14.0); WHITE BLOOD COUNT 9.5 10^3/uL (4.0-10.5)
[2018-06-17 04:18] LABS: ALANINE AMINOTRANSFERASE 77 U/L (9-52); ALKALINE PHOSPHATASE 72 U/L (38-126); ASPARTATE AMINO TRANSFERASE 66 U/L (14-36); BILIRUBIN,DIRECT 0.5 mg/dL (0.0-0.4); BILIRUBIN,TOTAL 0.6 mg/dL (0.2-1.3); BLOOD UREA NITROGEN 26 mg/dL (7-20); CALCIUM 9.4 mg/dL (8.4-10.2); CHLORIDE 89 mmol/L (98-107); GLUCOSE 160 mg/dL (75-110); POTASSIUM 4.2 mmol/L (3.6-5.0); SODIUM 133.4 mmol/L (137-145); TOTAL PROTEIN 5.5 g/dL (6.3-8.2)
[2018-06-17 04:28] LABS: ABSOLUTE LYMPHOCYTES# (MANUAL) 0.8 10^3/uL (0.5-4.7); ABSOLUTE MONOCYTES # (MANUAL) 0.4 10^3/uL (0.1-1.4); ABSOLUTE NEUTROPHILS# (MANUAL) 8.4 10^3/uL (1.7-8.2); ANISOCYTOSIS 2+; BASOPHILS % (MANUAL) 0 % (0-2); EOSINOPHILS % (MANUAL) 0 % (0-6); LYMPHOCYTES % (MANUAL) 8 % (13-45); MONOCYTES % (MANUAL) 4 % (3-13); NUCLEATED RED BLOOD CELLS 1 /100 WBC (0); POLYCHROMASIA 2+; SEGMENTED NEUTROPHILS % (MAN) 88 % (42-78); TOTAL CELLS COUNTED 100
[2018-06-17 04:29] LABS: ANION GAP 1 (5-19); PLATELET COMMENT ADEQUATE
[2018-06-17 04:30] LABS: CARBON DIOXIDE 43 mmol/L (22-30)
[2018-06-17] MEDS: DILTIAZEM HCL/D5W 125 MG/125 ML RTUINJ IV PRN (06:30)
[2018-06-17 09:26] LABS: HEMATOCRIT 30.3 % (36.0-47.0); HEMOGLOBIN 9.1 g/dL (12.0-15.5); MEAN CORPUSCULAR HEMOGLOBIN 26.3 pg (27.0-33.4); MEAN CORPUSCULAR HGB CONC 30.1 g/dL (32.0-36.0); MEAN CORPUSCULAR VOLUME 87 fl (80-97); PLATELET COUNT 394 10^3/uL (150-450); RED BLOOD COUNT 3.47 10^6/uL (3.72-5.28); RED CELL DISTRIBUTION WIDTH 19.4 % (11.5-14.0); WHITE BLOOD COUNT 11.1 10^3/uL (4.0-10.5)
[2018-06-17] MEDS: FLUTICASONE/SALMETEROL DISKUS 250-50 MCG/DOSE IH SCH ×2 (10:06→21:21)
[2018-06-17] MEDS: POTASSIUM CHLORIDE 10 MEQ CAPSULE.ER PO SCH (10:07)
[2018-06-17] MEDS: DILTIAZEM HCL 60 MG TABLET PO SCH ×3 (10:08→21:21)
[2018-06-17] MEDS: APIXABAN 5 MG TABLET PO SCH ×2 (10:09→18:09)
[2018-06-17] MEDS: METHYLPREDNISOLONE INJ 40 MG/1 ML SDV IV SCH ×2 (10:12→21:21)
[2018-06-17] MEDS: ERTAPENEM SODIUM 1 GM in NORMAL SALINE 50 ML IV SCH (10:14)
[2018-06-17 10:30] LABS: ABSOLUTE LYMPHOCYTES# (MANUAL) 0.9 10^3/uL (0.5-4.7); ABSOLUTE MONOCYTES # (MANUAL) 0.1 10^3/uL (0.1-1.4); ABSOLUTE NEUTROPHILS# (MANUAL) 10.1 10^3/uL (1.7-8.2); BASOPHILS % (MANUAL) 0 % (0-2); EOSINOPHILS % (MANUAL) 0 % (0-6); LYMPHOCYTES % (MANUAL) 8 % (13-45); MONOCYTES % (MANUAL) 1 % (3-13); NUCLEATED RED BLOOD CELLS 1 /100 WBC (0); SEGMENTED NEUTROPHILS % (MAN) 91 % (42-78); TOTAL CELLS COUNTED 100
[2018-06-17 10:32] LABS: ANISOCYTOSIS 2+; HYPOCHROMASIA SLIGHT; OVALOCYTES 2+; PLATELET COMMENT ADEQUATE; POIKILOCYTOSIS 2+; POLYCHROMASIA 1+
--- NOTE | 2018-06-17 14:57 | PROGRESS NOTE E ---
Progress Note NAME: KASSIE TORO : 1935 AGE: 83Y DATE: 06/17/2018 ROOM: 606 SUBJECTIVE: The patient is a pleasant 83-year-old female who has a past medical history of COPD, atrial fibrillation, hypertension, heart failure. The patient was admitted with acute hypoxic respiratory failure secondary to COPD exacerbation and hypoxemia. Placed on BiPAP. The patient also had atrial fibrillation, admitted with Afib with rapid ventricular response. Was started on Cardizem drip and Lasix and BiPAP was titrated to nasal cannula. The patient is feeling better today. OBJECTIVE: GENERAL: Patient lying in bed, comfortable, not in distress. VITAL SIGNS: Temperature 98.1, heart rate 106, blood pressure 119/78, saturation is 95% on 4 liters. HEENT: Head normocephalic, atraumatic. Pupils round, reactive to light and accommodation bilaterally. Extraocular movements intact. Ears: Tympanic membranes intact bilateral. No discharge from the ears. No discharge from the nose. NECK: Supple. No increased JVD. No thyromegaly. No lymphadenopathy. CARDIOVASCULAR: Normal S1, S2. Regular rate and rhythm. No murmur, no gallop. RESPIRATORY: Bilateral crackles, wheezing. Decreased air entry bilaterally. ABDOMEN: Soft. MUSCULOSKELETAL: No edema. LABORATORY DATA: White blood count 9.5, hemoglobin 8.7, hematocrit 27. Sodium 133, potassium 4.2, chloride is 89, carbon dioxide is 43. GFR is more than 60. BUN 0.5. ABG: The pH 7.4, pCO2 of 72. ASSESSMENT: 1. COPD EXACERBATION. 2. ACUTE ON CHRONIC HYPOXIC RESPIRATORY FAILURE. Was on BIPAP, titrated to nasal cannula now. 3. ATRIAL FIBRILLATION WITH RAPID VENTRICULAR RESPONSE. On Cardizem drip. Heart rate converted to normal sinus rhythm. Heart rate now is 80 to 90. 4. HYPERTENSION. Controlled. 5. CONGESTIVE HEART FAILURE/PULMONARY EDEMA. On IV Lasix at 40 mg every 8 hours. Probably diastolic heart failure. EF is 60%. 6. BILATERAL PNEUMONIA. Continue antibiotics. PLAN: Continue IV antibiotic. Continue IV Lasix. Titrate Cardizem drip and start her on Cardizem p.o. 60 mg p.o. every 6 hours. MEDICAL NECESSITY: The patient needs IV fluids, IV Lasix as well as also IV antibiotics. TIME SPENT: Thirty-five minutes. DICTATING PHYSICIAN: JULIA SIMON M.D. [id number] PHY#: [id number] ID: [id number] JOB#: [id number] ACCT: [id number] cc: >
[2018-06-17] MEDS: CARBOXYMETHYLCELLULOSE SOD 0.5% 0.4 ML DROPERETTE OU PRN (21:23)
[2018-06-18] MEDS: DILTIAZEM HCL 60 MG TABLET PO SCH ×5 (02:20→22:25)
[2018-06-18 04:04] LABS: HEMATOCRIT 28.1 % (36.0-47.0); HEMOGLOBIN 8.9 g/dL (12.0-15.5); MEAN CORPUSCULAR HEMOGLOBIN 27.3 pg (27.0-33.4); MEAN CORPUSCULAR HGB CONC 31.6 g/dL (32.0-36.0); MEAN CORPUSCULAR VOLUME 86 fl (80-97); PLATELET COUNT 360 10^3/uL (150-450); RED BLOOD COUNT 3.26 10^6/uL (3.72-5.28); RED CELL DISTRIBUTION WIDTH 19.3 % (11.5-14.0); WHITE BLOOD COUNT 9.5 10^3/uL (4.0-10.5)
[2018-06-18 04:14] LABS: ALBUMIN 3.1 g/dL (3.5-5.0); BLOOD UREA NITROGEN 24 mg/dL (7-20); CALCIUM 9.6 mg/dL (8.4-10.2); CHLORIDE 91 mmol/L (98-107); GLUCOSE 148 mg/dL (75-110); PHOSPHORUS 3.4 mg/dL (2.5-4.5); POTASSIUM 4.7 mmol/L (3.6-5.0); SODIUM 135.5 mmol/L (137-145)
[2018-06-18 04:41] LABS: ANION GAP 6 (5-19); CARBON DIOXIDE 39 mmol/L (22-30)
[2018-06-18 05:56] LABS: ABSOLUTE MONOCYTES # (MANUAL) 0.6 10^3/uL (0.1-1.4); BASOPHILS % (MANUAL) 0 % (0-2); EOSINOPHILS % (MANUAL) 0 % (0-6); LYMPHOCYTES % (MANUAL) 10 % (13-45); MONOCYTES % (MANUAL) 6 % (3-13); NUCLEATED RED BLOOD CELLS 3 /100 WBC (0); SEGMENTED NEUTROPHILS % (MAN) 84 % (42-78); TOTAL CELLS COUNTED 100
[2018-06-18 05:57] LABS: ANISOCYTOSIS 2+; OVALOCYTES SLIGHT; PLATELET COMMENT ADEQUATE; POLYCHROMASIA 1+; SCHISTOCYTES SLIGHT; TARGET CELLS 1+
[2018-06-18 06:14] LABS: ARTERIAL BLOOD H2CO3 1.85 mmol/L (1.05-1.35); ARTERIAL BLOOD HCO3 37.5 mmol/L (20-24); ARTERIAL BLOOD O2 SATURATION 92.4 % (94-98); ARTERIAL BLOOD PCO2 61.3 mmHg (35-45); ARTERIAL BLOOD PO2 65.6 mmHg (80-100); ARTERIAL BLOOD TOTAL CO2 39.3 mmol/L (21-25)
[2018-06-18 06:18] LABS: ARTERIAL BLOOD FIO2 30%
[2018-06-18] MEDS: CARBOXYMETHYLCELLULOSE SOD 0.5% 0.4 ML DROPERETTE OU PRN (08:53)
[2018-06-18] MEDS: ERTAPENEM SODIUM 1 GM in NORMAL SALINE 50 ML IV SCH (09:04)
[2018-06-18] MEDS: POTASSIUM CHLORIDE 10 MEQ CAPSULE.ER PO SCH (09:04)
[2018-06-18] MEDS: FLUTICASONE/SALMETEROL DISKUS 250-50 MCG/DOSE IH SCH ×2 (09:05→22:25)
[2018-06-18] MEDS: ERGOCALCIFEROL (VITAMIN D2) 50000 UNIT (1.25 MG) CAPSULE PO SCH (09:05)
[2018-06-18] MEDS: APIXABAN 5 MG TABLET PO SCH ×2 (09:05→17:50)
[2018-06-18] MEDS: METHYLPREDNISOLONE INJ 40 MG/1 ML SDV IV SCH (09:06)
--- NOTE | 2018-06-18 11:37 | PROGRESS NOTE E ---
Progress Note NAME: KASSIE TORO : 1935 AGE: 83Y DATE: ROOM: 606 SUBJECTIVE: The patient is a pleasant 83-year-old female who has a past medical history of COPD, atrial fibrillation, hypertension. The patient was admitted with acute hypoxic hypercapnic respiratory failure. She was on BiPAP. Her CO2 was high and now the patient's CO2 is coming down. She was on Cardizem drip and now switched to p.o. Cardizem. She is feeling much better today. OBJECTIVE: GENERAL: Patient lying in bed, comfortable, not in distress. VITAL SIGNS: Heart rate is 98, temperature 98.1, blood pressure 135/71, saturation 96%. HEENT: Head normocephalic, atraumatic. Pupils round, reactive to light and accommodation bilaterally. Extraocular movements intact. Ears: Tympanic membranes intact bilateral. No discharge from the ears. No discharge from the nose. NECK: Supple. No increased JVD. No thyromegaly. No lymphadenopathy. CARDIOVASCULAR: Normal S1, S2. Regular rate and rhythm. No murmur, no gallop. RESPIRATORY: Lungs clear. ABDOMEN: Soft, nontender. MUSCULOSKELETAL: No edema. NEUROLOGIC: Awake, alert. LABORATORY DATA: White blood count 9.5, hemoglobin 8.9. Sodium 135, potassium 4.7, CO2 is 39, creatinine 0.45. ASSESSMENT: 1. ACUTE ON CHRONIC HYPOXIC RESPIRATORY FAILURE. The patient was on BIPAP, now on nasal cannula. 2. COPD EXACERBATION. On Solu Medrol, antibiotics as well as inhaler. 3. HYPERTENSION. Controlled. 4. ATRIAL FIBRILLATION WITH RAPID VENTRICULAR RESPONSE. Cardizem drip discontinued. Now she is on Cardizem p.o. 5. CONGESTIVE HEART FAILURE. On IV Lasix. PLAN: 1. Will transfer patient to MICU. 2. Will change Lasix IV to p.o. 3. Continue antibiotics 4. Change Solu Medrol to prednisone p.o. 5. Continue Eliquis 5 mg twice a day. MEDICAL NECESSITY: IV antibiotics. TIME SPENT: Twenty-five minutes. DICTATING PHYSICIAN: JULIA SIMON M.D. [id number] PHY#: [id number] ID: [id number] JOB#: [id number] ACCT: [id number] cc: > MTDD
[2018-06-18] MEDS: FUROSEMIDE 40 MG TABLET PO SCH (12:54)
[2018-06-18] MEDS: PREDNISONE 20 MG TABLET PO SCH (12:54)
[2018-06-19] MEDS: DILTIAZEM HCL 60 MG TABLET PO SCH ×6 (02:50→21:48)
[2018-06-19 06:12] LABS: HEMATOCRIT 28.6 % (36.0-47.0); HEMOGLOBIN 8.9 g/dL (12.0-15.5); MEAN CORPUSCULAR HEMOGLOBIN 26.8 pg (27.0-33.4); MEAN CORPUSCULAR HGB CONC 31.1 g/dL (32.0-36.0); MEAN CORPUSCULAR VOLUME 86 fl (80-97); PLATELET COUNT 351 10^3/uL (150-450); RED BLOOD COUNT 3.31 10^6/uL (3.72-5.28); RED CELL DISTRIBUTION WIDTH 19.2 % (11.5-14.0); WHITE BLOOD COUNT 10.1 10^3/uL (4.0-10.5)
[2018-06-19 06:27] LABS: ALBUMIN 3.1 g/dL (3.5-5.0); BLOOD UREA NITROGEN 27 mg/dL (7-20); CALCIUM 9.2 mg/dL (8.4-10.2); CHLORIDE 89 mmol/L (98-107); GLUCOSE 133 mg/dL (75-110); PHOSPHORUS 3.5 mg/dL (2.5-4.5); POTASSIUM 4.1 mmol/L (3.6-5.0); SODIUM 134.6 mmol/L (137-145)
[2018-06-19 06:38] LABS: ANION GAP 3 (5-19)
[2018-06-19 06:39] LABS: CARBON DIOXIDE 43 mmol/L (22-30)
[2018-06-19 06:41] LABS: ABSOLUTE LYMPHOCYTES# (MANUAL) 0.9 10^3/uL (0.5-4.7); ABSOLUTE MONOCYTES # (MANUAL) 0.2 10^3/uL (0.1-1.4); BASOPHILS % (MANUAL) 0 % (0-2); EOSINOPHILS % (MANUAL) 0 % (0-6); LYMPHOCYTES % (MANUAL) 9 % (13-45); MONOCYTES % (MANUAL) 2 % (3-13); NUCLEATED RED BLOOD CELLS 2 /100 WBC (0); SEGMENTED NEUTROPHILS % (MAN) 89 % (42-78); TOTAL CELLS COUNTED 100
[2018-06-19 06:44] LABS: ANISOCYTOSIS 2+; OVALOCYTES 1+; PLATELET COMMENT ADEQUATE; POIKILOCYTOSIS 2+; SCHISTOCYTES SLIGHT; STOMATOCYTES 1+; TARGET CELLS SLIGHT; TOXIC GRANULATION 1+; TOXIC VACUOLATION PRESENT
[2018-06-19] MEDS: ERTAPENEM SODIUM 1 GM in NORMAL SALINE 50 ML IV SCH (10:00)
[2018-06-19] MEDS: FUROSEMIDE 40 MG TABLET PO SCH (10:00)
[2018-06-19] MEDS: APIXABAN 5 MG TABLET PO SCH ×2 (10:00→21:48)
[2018-06-19] MEDS: PREDNISONE 20 MG TABLET PO SCH (10:01)
[2018-06-19] MEDS: POTASSIUM CHLORIDE 10 MEQ CAPSULE.ER PO SCH (10:01)
[2018-06-19] MEDS: FLUTICASONE/SALMETEROL DISKUS 250-50 MCG/DOSE IH SCH ×2 (10:02→21:47)
[2018-06-19] MEDS: ACETAMINOPHEN 325 MG TABLET PO PRN (16:15)
--- NOTE | 2018-06-19 16:52 | PDOC PROGRESS REPORT ---
Subjective Progress Note for:: 06/19/18 Subjective:: Assumed care today. Chart reviewed. This is an 83 yr old female with a PMH of chronic AFib-on Eliquis, COPD, hypertension and hyperlipidemia who initially presented with hypoxia and a fall. She was admitted for COPD exacerbation, HCAP and AFib with RVR. She was initially on BIPAP. She initially had episodes of confusion, lethargy and hypoxia in the ICU. She gradually improved. No acute event overnight. She continue to improve. Currently comfortable and saturating well on 3L via NC. Denies chest pain or SOB. IMCU downgrade. Reason For Visit: FALL, HYPOXIA Physical Exam Vital Signs: Temp Pulse Resp BP Pulse Ox 98.2 F 77 19 119/81 94 06/19/18 16:00 06/19/18 08:40 06/19/18 14:00 06/19/18 07:49 06/19/18 14:00 Intake & Output 06/18/18 06/19/18 06/20/18 06:59 06:59 06:59 Intake Total 78 550 50 Output Total 1245 2685 425 Balance -1167 -2135 -375 Weight 175 lb 0.752 oz 175 lb 7.807 oz General appearance: PRESENT: no acute distress, well-developed, well-nourished Head exam: PRESENT: atraumatic, normocephalic Eye exam: PRESENT: conjunctiva pink, EOMI, PERRLA. ABSENT: scleral icterus Ear exam: PRESENT: normal external ear exam Mouth exam: PRESENT: moist, tongue midline Neck exam: ABSENT: carotid bruit, JVD, lymphadenopathy, thyromegaly Respiratory exam: PRESENT: rhonchi. ABSENT: rales, wheezes Cardiovascular exam: PRESENT: irregular rhythm. ABSENT: rubs GI/Abdominal exam: PRESENT: normal bowel sounds, soft. ABSENT: distended, guarding, mass, organolmegaly, rebound, tenderness Rectal exam: PRESENT: deferred Neurological exam: PRESENT: alert, awake, oriented to person, oriented to place, oriented to time, oriented to situation, CN II-XII grossly intact. ABSENT: motor sensory deficit Results Laboratory Results: 06/19/18 05:22 06/19/18 05:22 06/19/18 06/19/18 05:22 05:22 WBC 10.1 RBC 3.31 L Hgb 8.9 L Hct 28.6 L MCV 86 MCH 26.8 L MCHC 31.1 L RDW 19.2 H Plt Count 351 Seg Neutrophils % Not Reportable Lymphocytes % Not Reportable Monocytes % Not Reportable Eosinophils % Not Reportable Basophils % Not Reportable Absolute Neutrophils Not Reportable Absolute Lymphocytes Not Reportable Absolute Monocytes Not Reportable Absolute Eosinophils Not Reportable Absolute Basophils Not Reportable Sodium 134.6 L Potassium 4.1 Chloride 89 L Carbon Dioxide 43 H* Anion Gap 3 L BUN 27 H Creatinine 0.47 L Est GFR ( Amer) > 60 Est GFR (Non-Af Amer) > 60 Glucose 133 H Calcium 9.2 Phosphorus 3.5 Albumin 3.1 L 06/14/18 06/15/18 06/16/18 08:37 11:43 08:56 NT-Pro-B Natriuret Pep 2200 H 1570 H 1300 H Impressions: Head CT 06/09/18 08:02 IMPRESSION: No acute intracranial pathology. Soft tissue hematoma of the left scalp vertex. EVIDENCE OF ACUTE STROKE: NO. Hip X-Ray 06/09/18 08:02 IMPRESSION: INTACT BILATERAL HIP PROSTHESES. STABLE CHRONIC FINDINGS ABOVE. NO RADIOGRAPHIC EVIDENCE OF ACUTE INJURY. Pelvis CT 06/11/18 12:16 IMPRESSION: No acute pelvic fracture. Abdominal aortic aneurysm and left iliac aneurysm incompletely imaged. Chest CT 06/13/18 08:00 IMPRESSION: Congestive heart failure. Correlate with BNP. Probable calcified granuloma right lower lobe. Consider correlation with thoracentesis. Chest X-Ray 06/16/18 00:00 IMPRESSION: Persistent bibasilar airspace disease, atelectasis versus pneumonia. Trace pleural fluid bilaterally. These findings are similar compared to previous study 06/15/2018. Assessment & Plan - Diagnosis (1) Acute on chronic respiratory failure with hypoxia Is this a current diagnosis for this admission?: Yes (2) Pneumonia Qualifiers: Laterality: bilateral Is this a current diagnosis for this admission?: Yes Plan: Patien't SOB has improved. Leukocytosis has resolved. Noted sputum culture results. On Ertapenem day 6 today. De-escalate to Levaquin PO. (3) COPD exacerbation Is this a current diagnosis for this admission?: Yes Plan: Continue prednisone and breathing treatments. (4) Atrial fibrillation Qualifiers: Atrial fibrillation type: chronic Qualified Code(s): I48.2 - Chronic atrial fibrillation Is this a current diagnosis for this admission?: Yes Plan: Rate-controlled. Continue PO Cardizem and Eliquis. - Time Time Spent with patient: 25-34 minutes
[2018-06-20] MEDS: DILTIAZEM HCL 60 MG TABLET PO SCH ×6 (02:15→22:00)
[2018-06-20] MEDS: FUROSEMIDE 40 MG TABLET PO SCH (09:56)
[2018-06-20] MEDS: LEVOFLOXACIN 750 MG TABLET PO SCH (09:57)
[2018-06-20] MEDS: APIXABAN 5 MG TABLET PO SCH ×2 (09:57→18:58)
[2018-06-20] MEDS: POTASSIUM CHLORIDE 10 MEQ CAPSULE.ER PO SCH (09:57)
[2018-06-20] MEDS: FLUTICASONE/SALMETEROL DISKUS 250-50 MCG/DOSE IH SCH ×2 (09:58→22:00)
[2018-06-20] MEDS: PREDNISONE 20 MG TABLET PO SCH (09:58)
[2018-06-20] MEDS: CARBOXYMETHYLCELLULOSE SOD 0.5% 0.4 ML DROPERETTE OU PRN ×2 (10:01→22:01)
--- NOTE | 2018-06-20 16:28 | PDOC PROGRESS REPORT ---
Subjective Progress Note for:: 06/20/18 Subjective:: No adverse events overnight. Her breathing has been fairly comfortable. She told me that she has been in and out of hospitals and rehab facilities for the last several months. She said she does not think she is been home since February. She does not think physical therapy has seen her since she is been here. She just got out of ICU in the last day or 2. Reason For Visit: FALL, HYPOXIA Physical Exam Vital Signs: Temp Pulse Resp BP Pulse Ox 97.4 F 91 20 116/76 93 06/20/18 11:35 06/20/18 11:35 06/20/18 11:35 06/20/18 11:35 06/20/18 11:35 Intake & Output 06/19/18 06/20/18 06/21/18 06:59 06:59 06:59 Intake Total 550 500 425 Output Total 2685 1950 600 Balance -8820 -2080 -175 Weight 79.6 kg 84.1 kg General appearance: PRESENT: no acute distress, cooperative, disheveled, hard of hearing Head exam: PRESENT: other - She has a soft knot on the left side of her occiput consistent with her hematoma. ABSENT: atraumatic Respiratory exam: PRESENT: decreased breath sounds, symmetrical, unlabored. ABSENT: accessory muscle use, crackles, prolonged expiratory phas, rhonchi, tachypnea, wheezes Cardiovascular exam: PRESENT: irregular rhythm, systolic murmur Vascular exam: PRESENT: normal capillary refill GI/Abdominal exam: PRESENT: normal bowel sounds, soft. ABSENT: distended, guarding, rebound, tenderness Extremities exam: PRESENT: other - She has a large bruise on her left hip that appears old. ABSENT: clubbing, pedal edema Musculoskeletal exam: PRESENT: normal inspection. ABSENT: deformity Neurological exam: PRESENT: alert, awake, oriented to person, oriented to place, oriented to time, oriented to situation Psychiatric exam: PRESENT: appropriate affect, normal mood Skin exam: PRESENT: dry, warm Results Laboratory Results: 06/19/18 05:22 06/19/18 05:22 06/14/18 06/15/18 06/16/18 08:37 11:43 08:56 NT-Pro-B Natriuret Pep 2200 H 1570 H 1300 H Impressions: Head CT 06/09/18 08:02 IMPRESSION: No acute intracranial pathology. Soft tissue hematoma of the left scalp vertex. EVIDENCE OF ACUTE STROKE: NO. Hip X-Ray 06/09/18 08:02 IMPRESSION: INTACT BILATERAL HIP PROSTHESES. STABLE CHRONIC FINDINGS ABOVE. NO RADIOGRAPHIC EVIDENCE OF ACUTE INJURY. Pelvis CT 06/11/18 12:16 IMPRESSION: No acute pelvic fracture. Abdominal aortic aneurysm and left iliac aneurysm incompletely imaged. Chest CT 06/13/18 08:00 IMPRESSION: Congestive heart failure. Correlate with BNP. Probable calcified granuloma right lower lobe. Consider correlation with thoracentesis. Chest X-Ray 06/16/18 00:00 IMPRESSION: Persistent bibasilar airspace disease, atelectasis versus pneumonia. Trace pleural fluid bilaterally. These findings are similar comp ared to previous study 06/15/2018. Assessment & Plan - Diagnosis (1) Acute on chronic respiratory failure with hypoxia Is this a current diagnosis for this admission?: Yes Plan: Currently stable on supplemental O2 per nasal cannula (2) Atrial fibrillation Qualifiers: Atrial fibrillation type: chronic Qualified Code(s): I48.2 - Chronic atrial fibrillation Is this a current diagnosis for this admission?: Yes Plan: Currently rate controlled and anticoagulated. (3) COPD (chronic obstructive pulmonary disease) Qualifiers: COPD type: COPD with acute exacerbation Qualified Code(s): J44.1 - Chronic obstructive pulmonary disease with (acute) exacerbation Is this a current diagnosis for this admission?: Yes Plan: Responded to steroids and bronchodilators. (4) Pneumonia Qualifiers: Laterality: bilateral Is this a current diagnosis for this admission?: Yes Plan: Has responded well to antibiotics. We will continue p.o. Levaquin. (5) Fall Qualifiers: Encounter type: initial encounter Qualified Code(s): W19.XXXA - Unspecified fall, initial encounter Is this a current diagnosis for this admission?: Yes Plan: Fortunately had no fractures. Had a scalp hematoma in the bruise on her left hip. We will have a physical therapy evaluation. She wants to go back to [facility] in [place]. - Time Time Spent with patient: 25-34 minutes
[2018-06-21] MEDS: DILTIAZEM HCL 60 MG TABLET PO SCH ×6 (02:55→21:29)
[2018-06-21] MEDS: ACETAMINOPHEN 325 MG TABLET PO PRN (03:35)
[2018-06-21] MEDS: POTASSIUM CHLORIDE 10 MEQ CAPSULE.ER PO SCH (11:30)
[2018-06-21] MEDS: APIXABAN 5 MG TABLET PO SCH ×2 (11:30→18:26)
[2018-06-21] MEDS: PREDNISONE 20 MG TABLET PO SCH (11:30)
[2018-06-21] MEDS: FUROSEMIDE 40 MG TABLET PO SCH (11:30)
[2018-06-21] MEDS: LEVOFLOXACIN 750 MG TABLET PO SCH (11:31)
[2018-06-21] MEDS: FLUTICASONE/SALMETEROL DISKUS 250-50 MCG/DOSE IH SCH ×2 (11:34→21:29)
--- NOTE | 2018-06-21 15:22 | PDOC PROGRESS REPORT ---
Subjective Progress Note for:: 06/21/18 Subjective:: No adverse events overnight. Her breathing is been very comfortable. No cough or shortness of breath. Urine outputs been excellent. No fevers. Reason For Visit: FALL, HYPOXIA Physical Exam Vital Signs: Temp Pulse Resp BP Pulse Ox 98.5 F 126 H 17 119/81 96 06/21/18 12:35 06/21/18 14:00 06/21/18 12:35 06/21/18 12:35 06/21/18 12:35 Intake & Output 06/20/18 06/21/18 06/22/18 06:59 06:59 06:59 Intake Total 500 1625 977 Output Total 1950 3200 325 Balance -1450 -1575 652 Weight 84.1 kg 83 kg General appearance: PRESENT: no acute distress, cooperative, disheveled, hard of hearing Head exam: PRESENT: other - She has a soft knot on the left side of her occiput consistent with her hematoma. ABSENT: atraumatic Respiratory exam: PRESENT: decreased breath sounds, symmetrical, unlabored. ABSENT: accessory muscle use, crackles, prolonged expiratory phas, rhonchi, tachypnea, wheezes Cardiovascular exam: PRESENT: irregular rhythm, systolic murmur Vascular exam: PRESENT: normal capillary refill GI/Abdominal exam: PRESENT: normal bowel sounds, soft. ABSENT: distended, guarding, rebound, tenderness Extremities exam: PRESENT: other - She has a large bruise on her left hip that appears old. ABSENT: clubbing, pedal edema Musculoskeletal exam: PRESENT: normal inspection. ABSENT: deformity Neurological exam: PRESENT: alert, awake, oriented to person, oriented to place, oriented to time, oriented to situation Psychiatric exam: PRESENT: appropriate affect, normal mood Skin exam: PRESENT: dry, warm Results Laboratory Results: 06/19/18 05:22 06/19/18 05:22 06/14/18 06/15/18 06/16/18 08:37 11:43 08:56 NT-Pro-B Natriuret Pep 2200 H 1570 H 1300 H Impressions: Head CT 06/09/18 08:02 IMPRESSION: No acute intracranial pathology. Soft tissue hematoma of the left scalp vertex. EVIDENCE OF ACUTE STROKE: NO. Hip X-Ray 06/09/18 08:02 IMPRESSION: INTACT BILATERAL HIP PROSTHESES. STABLE CHRONIC FINDINGS ABOVE. NO RADIOGRAPHIC EVIDENCE OF ACUTE INJURY. Pelvis CT 06/11/18 12:16 IMPRESSION: No acute pelvic fracture. Abdominal aortic aneurysm and left iliac aneurysm incompletely imaged. Chest CT 06/13/18 08:00 IMPRESSION: Congestive heart failure. Correlate with BNP. Probable calcified granuloma right lower lobe. Consider correlation with thoracentesis. Chest X-Ray 06/16/18 00:00 IMPRESSION: Persistent bibasilar airspace disease, atelectasis versus pneumonia. Trace pleural fluid bilaterally. These findings are similar compared to previous study 06/15/2018. Assessment & Plan - Diagnosis (1) Acute on chronic respiratory failure with hypoxia Is this a current diagnosis for this admission?: Yes Plan: Currently stable on supplemental O2 per nasal cannula (2) Atrial fibrillation Qualifiers: Atrial fibrillation type: chronic Qualified Code(s): I48.2 - Chronic atrial fibrillation Is this a current diagnosis for this admission?: Yes Plan: Currently rate controlled and anticoagulated. (3) COPD (chronic obstructive pulmonary disease) Qualifiers: COPD type: COPD with acute exacerbation Qualified Code(s): J44.1 - Chronic obstructive pulmonary disease with (acute) exacerbation Is this a current diagnosis for this admission?: Yes Plan: Responded to steroids and bronchodilators. I am de-escalating her prednisone dosage. (4) Pneumonia Qualifiers: Laterality: bilateral Is this a current diagnosis for this admission?: Yes Plan: Has responded well to antibiotics. We will continue p.o. Levaquin. (5) Fall Qualifiers: Encounter type: initial encounter Qualified Code(s): W19.XXXA - Unspecified fall, initial encounter Is this a current diagnosis for this admission?: Yes Plan: Fortunately had no fractures. Had a scalp hematoma in the bruise on her left hip. We will have a physical therapy evaluation. She wants to go back to [facility] in [place]. We have confirmed that she still has some SNF days with her insurance. - Time Time Spent with patient: 25-34 minutes
[2018-06-22] MEDS: DILTIAZEM HCL 60 MG TABLET PO SCH ×5 (01:34→18:49)
[2018-06-22] MEDS: FUROSEMIDE 40 MG TABLET PO SCH (11:00)
[2018-06-22] MEDS: PREDNISONE 20 MG TABLET PO SCH (11:00)
[2018-06-22] MEDS: APIXABAN 5 MG TABLET PO SCH ×2 (11:00→18:49)
[2018-06-22] MEDS: POTASSIUM CHLORIDE 10 MEQ CAPSULE.ER PO SCH (11:00)
[2018-06-22] MEDS: LEVOFLOXACIN 750 MG TABLET PO SCH (11:00)
[2018-06-22] MEDS: FLUTICASONE/SALMETEROL DISKUS 250-50 MCG/DOSE IH SCH (11:01)
--- NOTE | 2018-06-22 11:43 | PDOC TRANSFER SUMMARY ---
General - Admit/Disc Date/PCP Admission Date/Primary Care Provider: 06/09/18 12:34 ARNAUD MORGAN Discharge Date: 06/22/18 - Discharge Diagnosis (1) Acute on chronic respiratory failure with hypoxia Is this a current diagnosis for this admission?: Yes Summary: as a result of pulmonary edema due to rapid afib, AECOPD, and HCAP. Stable on 2 L per NC (2) Atrial fibrillation Is this a current diagnosis for this admission?: Yes Summary: Required Cardizem gtt, now stable on p.o. Cardizem. Anticoagulated. (3) COPD (chronic obstructive pulmonary disease) Is this a current diagnosis for this admission?: Yes Summary: Triggered by HCAP and pulmonary edema. Responded well to treatment. Will finish prednisone burst as outpatient. (4) Pneumonia Is this a current diagnosis for this admission?: Yes Summary: Polymicrobial. Had 9 days of appropriate antibiotics. (5) Fall Is this a current diagnosis for this admission?: Yes Summary: Mechanical fall at home. Will go to SNF for PT. - Additional Information Resuscitation Status: Full Code Discharge Diet: Cardiac Discharge Activity: Activity As Tolerated, Balance Activity w/Rest, Weigh Daily Prescriptions: Diltiazem HCl [Diltiazem 24Hr Cd] 360 mg PO DAILY #30 cap.er.24h Home Medications: Albuterol Sulfate [Ventolin 0.083% Neb 2.5 mg/3 mL Ampul] 1 vial NEB Q12HP PRN 06/09/18 Apixaban [Eliquis 5 mg Tablet] 5 mg PO BID 06/09/18 Diphenhydramine HCl [Benadryl 25 mg Capsule] 25 mg PO Q12HP PRN 06/09/18 Ergocalciferol (Vitamin D2) [Drisdol 50,000 unit (1.25MG) Capsule] 50,000 unit PO HOUSE@1000 06/09/18 Fluticasone/Salmeterol [Advair 250-50 Diskus 14 Dose/Diskus] 1 inh IH Q12 06/09/18 Furosemide [Lasix 40 mg Tablet] 40 mg PO QAM 06/09/18 Diltiazem HCl [Diltiazem 24Hr Cd] 360 mg PO DAILY #30 cap.er.24h 06/22/18 Potassium Chloride [Klor-Con 10 Meq Capsule ER] 20 meq PO DAILY capsule.er 06/22/18 Prednisone [Deltasone 20 mg Tablet] 40 mg PO DAILY 4 Days tablet 06/22/18 History of Present Illness Admission Date/PCP: 06/09/18 12:34 ARNAUD MORGAN History of Present Illness: KASSIE TORO is a 83 year old female who presented from home after a mechanical fall, which set off her afib into RVR and caused acute diastolic heart failure. She was admitted for management of these issues. She had recently been discharged from a facility after treatment for atrial fibrillation and CHF. Hospital Course Hospital Course: She also developed HCAP after several days here, and she has been in and out of facilities since February 2018. She has gotten 9 days of antibiotics. This triggered an AECOPD, which has responded to customary therapy. She will com plete a prednisone burst after discharge. She was rate-controlled on a Cardizem gtt and has been transitioned to p.o. She responded well to diuresis. Her labs and examination were reasuring and she was transferred to [facility] in fair condition. Physical Exam Vital Signs: Temp Pulse Resp BP Pulse Ox 97.7 F 83 14 117/68 97 06/22/18 08:00 06/22/18 08:00 06/22/18 08:00 06/22/18 08:00 06/22/18 11:26 Intake & Output 06/21/18 06/22/18 06/23/18 06:59 06:59 06:59 Intake Total 1625 1572 Output Total 3200 2400 Balance -1575 -828 Weight 83 kg 80.4 kg General appearance: PRESENT: no acute distress, cooperative, disheveled, hard of hearing Head exam: PRESENT: other - She has a soft knot on the left side of her occiput consistent with her hematoma. ABSENT: atraumatic Respiratory exam: PRESENT: decreased breath sounds, symmetrical, unlabored. ABSENT: accessory muscle use, crackles, prolonged expiratory phas, rhonchi, tachypnea, wheezes Cardiovascular exam: PRESENT: irregular rhythm, systolic murmur Vascular exam: PRESENT: normal capillary refill GI/Abdominal exam: PRESENT: normal bowel sounds, soft. ABSENT: distended, guarding, rebound, tenderness Extremities exam: PRESENT: other - She has a large bruise on her left hip that appears old. ABSENT: clubbing, pedal edema Musculoskeletal exam: PRESENT: normal inspection. ABSENT: deformity Neurological exam: PRESENT: alert, awake, oriented to person, oriented to place, oriented to time, oriented to situation Psychiatric exam: PRESENT: appropriate affect, normal mood Skin exam: PRESENT: dry, warm Results Laboratory Results: 06/19/18 05:22 06/19/18 05:22 06/14/18 06/15/18 06/16/18 08:37 11:43 08:56 NT-Pro-B Natriuret Pep 2200 H 1570 H 1300 H Impressions: Head CT 06/09/18 08:02 IMPRESSION: No acute intracranial pathology. Soft tissue hematoma of the left scalp vertex. EVIDENCE OF ACUTE STROKE: NO. Hip X-Ray 06/09/18 08:02 IMPRESSION: INTACT BILATERAL HIP PROSTHESES. STABLE CHRONIC FINDINGS ABOVE. NO RADIOGRAPHIC EVIDENCE OF ACUTE INJURY. Pelvis CT 06/11/18 12:16 IMPRESSION: No acute pelvic fracture. Abdominal aortic aneurysm and left iliac aneurysm incompletely imaged. Chest CT 06/13/18 08:00 IMPRESSION: Congestive heart failure. Correlate with BNP. Probable calcified granuloma right lower lobe. Consider correlation with thoracentesis. Chest X-Ray 06/16/18 00:00 IMPRESSION: Persistent bibasilar airspace disease, atelectasis versus pneumonia. Trace pleural fluid bilaterally. These findings are similar compared to previous study 06/15/2018. Transfer Plan - Time Spent with Patient Time spent with patient: Greater than 30 Minutes Qualifiers - * PATIENT BEING DISCHARGED WITH ANY OF THE FOLLOWING DIAGNOSIS: Heart Failure HF Pt being discharged on ACEI for LVEF less than 40%?: No Reason(s) for not prescribing ACEI:: Not indicated HF Pt being discharged on ARBS for LVEF less than 40%?: No Reason(s) for not prescribing ARBS:: Not indicated HF Pt with Afib discharged with Warfarin?: No Reason(s) for not prescribing Warfarin:: Not indicated - on Eliquis HF Pt discharged on evidence-based Beta Josh:: No Reason(s) for not prescribing evidence-based Beta Josh:: Not indicated
[2018-06-22 20:42] VITALS: BP 112/71
== END 2018-06-22 20:56 | DRG 291 ==
LOC: ER 07:31 → EH 12:34 → 3W 21:35 → ICU 06-14 10:49 → 3W 06-19 18:10
PROVIDERS: ADMIT Hospitalist; ATTEND Hospitalist
PROC: 5A09357 Assistance with Respiratory Ventilation, Less than 24 Consecutive Hours, Continuous Positive Airway Pressure (ICD-10-PCS; principal; 2018-06-10)
DX: I11.0 Hypertensive heart disease with heart failure (principal); J96.21 Acute and chronic respiratory failure with hypoxia; J18.9 Pneumonia, unspecified organism; J96.22 Acute and chronic respiratory failure with hypercapnia; J44.1 Chronic obstructive pulmonary disease with (acute) exacerbation; J44.0 Chronic obstructive pulmonary disease with (acute) lower respiratory infection; I50.33 Acute on chronic diastolic (congestive) heart failure; Z99.81 Dependence on supplemental oxygen; I48.2 Chronic atrial fibrillation; Z79.01 Long term (current) use of anticoagulants; D64.9 Anemia, unspecified; S00.03XA Contusion of scalp, initial encounter; W19.XXXA Unspecified fall, initial encounter; M19.90 Unspecified osteoarthritis, unspecified site; Z96.643 Presence of artificial hip joint, bilateral; M25.511 Pain in right shoulder; G89.29 Other chronic pain; M25.552 Pain in left hip; F41.9 Anxiety disorder, unspecified; Y95 Nosocomial condition; H91.90 Unspecified hearing loss, unspecified ear; Z88.8 Allergy status to other drugs, medicaments and biological substances; Z88.6 Allergy status to analgesic agent; Z91.041 Radiographic dye allergy status; Z87.891 Personal history of nicotine dependence
CPT/HCPCS: 36415; 36600; 70450; 71045; 71046; 71250; 72192; 80048; 80053; 80069; 81001; 82803; 82962; 83735; 83880; 85025; 85027; 85610; 85730; 87040; 87070; 87077; 87086; 87186; 87205; 93306; 94660; 94799; 99285; J1335; J1644; J1940; J2920; J3490; J7030; J7512